=== PATIENT | female | born 1995 | race Caucasian/White ===

== ENCOUNTER 2022-05-16 01:22 | Emergency (ER) | payer OTHER ==
[2022-05-16 01:35] VITALS: TEMP 98.8
[2022-05-16] MEDS ORDERED: ALBUTEROL HFA INHALER INHALATION STA (01:47)
[2022-05-16] MEDS ORDERED: methylPREDNISolone SOD SUCCI 125 MG/2 ML VIAL IM ONE (01:47)
--- NOTE | 2022-05-16 02:19 | XR ---
EXAMINATION TYPE: XR chest 2V DATE OF EXAM: 05/16/2022 COMPARISON: NONE HISTORY: Hemoptysis TECHNIQUE: 2 views FINDINGS: Heart is normal. Lungs are clear of consolidation. There are no hilar masses. There are pat st leads. No pleural effusion. IMPRESSION: No active cardiopulmonary disease. Normal heart.
[2022-05-16] MEDS ORDERED: IPRATROPIUM-ALBUTEROL 3 ML NEB INHALATION STA ×2 (02:49)
--- NOTE | 2022-05-16 02:59 | ED ---
General Adult HPI - General Chief complaint: Shortness of Breath Stated complaint: NAILA, Coughing up blood Time Seen by Provider: 05/16/22 01:36 Source: patient, RN notes reviewed, old records reviewed Mode of arrival: wheelchair - History of Present Illness Initial comments: Patient is a 26-year-old female with past medical history remarkable for obesity, asthma, pre-COPD who is no longer smoking tobacco presents emergency Department complaining of shortness of breath. Has been ongoing for a few days. Also having congestion. Has attempted breathing treatments at home with minimal improvement. States she has been coughing a lot, and started noticing blood tinged sputum today. She states it is worse when she has multiple episodes of coughing. Has had excessive, persistent coughing over the last few days from what she believes is her COPD/asthma. Patient's daughter also has nasal congestion.. Denies any fevers or chills. Denies any abdominal pain, nausea, vomiting. Does endorse some intermittent chest tightness. His no other acute complaints at this time. States she is supposed to be on both albuterol as well as Flovent at home but she is without these that she recently moved hearing loss or inhalers. Is looking for refills on these. Presents for further evaluation at this time. - Related Data Previous Rx's Medication Instructions Recorded Albuterol Inhaler [Ventolin Hfa 2 puff INHALATION QID PRN #8 gm 05/16/22 Inhaler] Azithromycin [Zithromax] 250 mg PO DAILY 4 Days #4 tab 05/16/22 Fluticasone Propionate 110 Mcg 1 puff INHALATION RT-BID #12 gm 05/16/22 [Flovent 110 Mcg Inhaler] predniSONE [Deltasone] 40 mg PO DAILY 5 Days #10 tab 05/16/22 Allergies Allergy/AdvReac Type Severity Reaction Status Date / Time No Known Allergies Allergy Verified 05/16/22 01:34 Review of Systems ROS Statement: Those systems with pertinent positive or pertinent negative responses have been documented in the HPI. Review of Systems: CONST: Denies fever EYES: Denies blurry vision ENT: Denies nasal congestion C/V: Denies Chest pain RESP: Endorses Shortness of breath GI: Denies abdominal pain : Denies dysuria SKIN: Denies rash. MSK: Denies joint pain. NEURO: Denies headache ROS Other: All systems not noted in ROS Statement are negative. Past Medical History Past Medical History: Asthma Additional Past Medical History / Comment(s): seizure, pre-COPD History of Any Multi-Drug Resistant Organisms: None Reported Past Surgical History: No Surgical Hx Reported Past Psychological History: No Psychological Hx Reported Smoking Status: Never smoker Past Alcohol Use History: None Reported Past Drug Use History: None Reported General Exam - General Exam Comments Initial Comments: General: He is in mild respiratory distress with increased work of breathing. HEAD: Normal with no signs of head trauma. EYES: EOMI ENT: Hearing grossly intact, normal oropharynx. RESPIRATORY: Significant bilateral end expiratory wheezing. Mild hypoxia on room air to 91-94%. Increased work of breathing. C/V: Regular rate and rhythm. S1 and S2 auscultated, peripheral pulses 2+ and intact throughout ABD: Abd is soft, nontender, nondistended EXT: no obvious deformity SKIN: No rashes or lesions observed on exposed skin. NEURO: Alert and oriented 4 Course Vital Signs 05/16/22 05/16/22 05/16/22 01:32 01:47 02:54 Temperature 98.8 F Pulse Rate 102 H 93 Respiratory 23 Rate Blood Pressure 137/87 O2 Sat by Pulse 88 L 93 L Oximetry 05/16/22 05/16/22 03:07 03:12 Temperature Pulse Rate 110 H 107 H Respiratory 20 Rate Blood Pressure O2 Sat by Pulse 94 L Oximetry Medical Decision Making - Medical Decision Making Was pt. sent in by a medical professional or institution (JUAN ANTONIO Kamara, SPRINKLER WORKER, urgent care, hospital, or fdc...) When possible be specific @ -No Did you speak to anyone other than the patient for history (EMS, parent, family, police, friend...)? What history was obtained from this source @ -No Did you review nursing and triage notes (agree or disagree)? Why? @ -I reviewed and agree with nursing and triage notes Were old charts reviewed (outside hosp., previous admission, EMS record, old EKG, old radiological studies, urgent care reports/EKG's, fdc records)? Report findings @ -No old charts were reviewed Differential Diagnosis (chest pain, altered mental status, abdominal pain women, abdominal pain men, vaginal bleeding, weakness, fever, dyspnea, syncope, headache, dizziness, GI bleed, back pain, seizure, CVA, palpatations, mental health, musculoskeletal)? @ -Asthma exacerbation, COPD exacerbation, pneumonia, Covid infection, viral infection, bronchitis EKG interpreted by me (3pts min.). @ -As above X-rays interpreted by me (1pt min.). @ -Chest x-ray revealed no obvious acute cardiopulmonary process. CT interpreted by me (1pt min.). @ -None done U/S interpreted by me (1pt. min.). @ -None done What testing was considered but not performed or refused? (CT, X-rays, U/S, labs)? Why? @ -None What meds were considered but not given or refused? Why? @ -None Did you discuss the management of the patient with other professionals (professionals i.e. , PA, SPRINKLER WORKER, lab, RT, psych nurse, social service assistant, composition tile layer, teacher, tax compliance officer, counseling case manager)? Give summary @ -No Was smoking cessation discussed for >3mins.? @ -No Was critical care preformed (if so, how long)? @ -No Were there social determinants of health that impacted care today? How? (Homelessness, low income, unemployed, alcoholism, drug addiction, transportation, low edu. Level, literacy, decrease access to med. care, fci, rehab)? @ -No Was there de-escalation of care discussed even if they declined (Discuss DNR or withdrawal of care, Hospice)? DNR status @ -No What co-morbidities impacted this encounter? (DM, HTN, Smoking, COPD, CAD, Cancer, CVA, ARF, Chemo, Hep., AIDS, mental health diagnosis, sleep apnea, morbid obesity)? @ -COPD, asthma Was patient admitted / discharged? Hospital course, mention meds given and route, prescriptions, significant lab abnormalities, going to OR and other pertinent info. @ -Based on the patient's presentation physical exam, I'm concerned for COPD or asthma exacerbation. We will obtain bowel sounds, chest x-ray, screening EKG. She'll be initially symptom medically treated with an albuterol inhaler as well as a shot of IM Solu-Medrol. Patient is mildly hypoxic on room air. Remainder of vital signs are within acceptable limits. She was in agreement this plan. We discussed her blood tinged sputum likely from excessive coughing/bronchitis from her COPD/asthma. Chest x-ray shows no signs of acute cardio pulmonary process. EKG within acceptable limits. Patient's viral swabs are all negative. Patient will be given 2 DuoNeb treatments at this time and reevaluated. I did the patient at this time of her results and she was in agreement this plan. On reevaluation, patient is feeling improved. Vital signs are within acceptable limits. Hypoxia is resolved. Wheezing is much improved. I do believe it is safer to be discharged home with close follow-up. She was in agreement this plan. Does have a scheduled appointment with a new PCP next month but recommended she follow up sooner. She was in agreement this plan. She'll be given prescription for prednisone, albuterol inhaler, as well as her Flovent inhaler. Strict return precautions discussed. She'll be started on azithromycin to cover empirically for bronchitis. She was in agreement this plan. I will provide the patient with a prescription for prednisone, azithromycin, Flovent, albuterol. I instructed the patient to follow up with their PCP in the next 1-3 days. I explained that the patient should return to the emergency department if they experience any worsening symptoms. Strict return precautions were discussed with the patient. The patient expressed understanding of these instructions. I answered all questions that the patient had. The patient was discharged home in good condition with their prescriptions and follow up information. Undiagnosed new problem with uncertain prognosis? @ -No Drug Therapy requiring intensive monitoring for toxicity (Heparin, Nitro, Insulin, Cardizem)? @ -No Were any procedures done? @ -No Diagnosis/symptom? @ -Asthma/COPD Acute, or Chronic, or Acute on Chronic? @ -Acute on chronic Uncomplicated (without systemic symptoms) or Complicated (systemic symptoms)? @ -Complicated Side effects of treatment? @ -No Exacerbation, Progression, or Severe Exacerbation? @ -Exacerbation Poses a threat to life or bodily function? How? (Chest pain, [place], [place], pneumonia, PE, COPD, DKA, ARF, appy, cholecystitis, CVA, Diverticulitis, Homicidal, Suicidal, threat to staff... and all critical care pts) @ -Yes, if untreated can result in significant morbidity and mortality. Diagnosis/symptom? @ -Bronchitis Acute, or Chronic, or Acute on Chronic? @ -Acute Uncomplicated (without systemic symptoms) or Complicated (systemic symptoms)? @ -Uncomplicated Side effects of treatment? @ -none Exacerbation, Progression, or Severe Exacerbation] @ -no Poses a threat to life or bodily function? @ -no - Lab Data Lab Results 05/16/22 Range/Units 01:59 Influenza Type A (PCR) Not Detected (Not Detectd) Influenza Type B (PCR) Not Detected (Not Detectd) RSV (PCR) Not Detected (Not Detectd) SARS-CoV-2 (PCR) Not Detected (Not Detectd) - EKG Data -: EKG Interpreted by Me EKG Comments: 12-lead Electrocardiogram Interpretation Note EKG was reviewed and interpreted by myself. 12-lead ECG performed at 0230 is interpreted by me as revealing normal sinus rhythm at a rate of 98 beats per minute. [place]man is normal. [place] interval is 141 ms, QRS duration is 79 ms, QTc is 405 ms.. There were no ST or T wave abnormalities to suggest myocardial ischemia or injury. R wave progression across the precordium was satisfactory. By my interpretation this EKG is non-diagnostic for acute ischemia. Disposition Clinical Impression: Asthma, COPD (chronic obstructive pulmonary disease), Bronchitis Disposition: HOME SELF-CARE Condition: Good Instructions (If sedation given, give patient instructions): Asthma (ED), Acute Bronchitis (ED) Prescriptions: predniSONE [Deltasone] 40 mg PO DAILY 5 Days #10 tab Fluticasone Propionate 110 Mcg [Flovent 110 Mcg Inhaler] 1 puff INHALATION RT- BID #12 gm Albuterol Inhaler [Ventolin Hfa Inhaler] 2 puff INHALATION QID PRN #8 gm PRN Reason: Wheezing Azithromycin [Zithromax] 250 mg PO DAILY 4 Days #4 tab Is patient prescribed a controlled substance at d/c from ED?: No Referrals: None,Stated [Primary Care Provider] - 1-2 days Time of Disposition: 03:10
[2022-05-16 03:12] VITALS: PULSE 107; RESP 20
[2022-05-16] MEDS ORDERED: AZITHROMYCIN 500 MG TAB PO STA (03:12)
[2022-05-16 03:36] VITALS: BP 122/74
== END 2022-05-16 03:39 | disposition home or self-care (01) ==
LOC: EC 01:22
DX: J44.9 Chronic obstructive pulmonary disease, unspecified (principal); J40 Bronchitis, not specified as acute or chronic; E66.9 Obesity, unspecified; Z20.822 Contact with and (suspected) exposure to COVID-19; Z68.43 Body mass index [BMI] 50.0-59.9, adult
CPT/HCPCS: 94640; 93005; 87636; 71046; 99285; 96372; J2930

== ENCOUNTER 2022-06-09 16:27 | Emergency (ER) | payer OTHER ==
[2022-06-09] MEDS ORDERED: methylPREDNISolone SOD SUCCI 125 MG/2 ML VIAL IV STA (16:41)
[2022-06-09] MEDS ORDERED: IPRATROPIUM-ALBUTEROL 3 ML NEB INHALATION STA (16:41)
[2022-06-09 17:27] LABS: Basophils % (A) 0 %; Eosinophils # (A) 0.6 k/uL (0-0.7); Eosinophils % (A) 7 %; HCT 37.9 % (34.0-46.0); HGB 12.5 gm/dL (11.4-16.0); Lymphocytes # (A) 2.2 k/uL (1.0-4.8); Lymphocytes % (A) 25 %; MCH 24.4 pg (25.0-35.0); MCHC 32.8 g/dL (31.0-37.0); MCV 74.2 fL (80.0-100.0); Mean Platelet Volume 7.1; Microcytosis Slight; Monocytes # (A) 0.3 k/uL (0-1.0); Monocytes % (A) 4 %; Neutrophils # (A) 5.3 k/uL (1.3-7.7); Neutrophils % (A) 62 %; Platelet Count 312 k/uL (150-450); RBC 5.11 m/uL (3.80-5.40); RDW 15.6 % (11.5-15.5); WBC 8.6 k/uL (3.8-10.6)
--- NOTE | 2022-06-09 17:27 | ED ---
SOB HPI - General Chief Complaint: Shortness of Breath Stated Complaint: sob Time Seen by Provider: 06/09/22 16:31 Source: patient, EMS, RN notes reviewed Mode of arrival: EMS - History of Present Illness Initial Comments: 26-year-old female history of asthma who states she's been short of breath for last couple days she's had chills and cold sweats today. That she short of br eath with exertion she states she used her rescue inhaler over last 3 days without relief she states she has a home nebulizer machine with the patient dog chewed the mouthpiece a reservoir and she did not have a replacement. No overt chest pain no other current complaints modifying factors patient does not smoke. MD Complaint: shortness of breath, cough - Related Data Home Medications Medication Instructions Recorded Confirmed ARIPiprazole [Abilify] 5 mg PO DAILY 06/09/22 06/09/22 Albuterol Inhaler [Ventolin Hfa 2 puff INHALATION RT-QID PRN 06/09/22 06/09/22 Inhaler] Albuterol Nebulized [Ventolin 2.5 mg INHALATION RT-QID PRN 06/09/22 06/09/22 Nebulized] Sertraline [Zoloft] 100 mg PO DAILY 06/09/22 06/09/22 Previous Rx's Medication Instructions Recorded Fluticasone Propionate 110 Mcg 1 puff INHALATION RT-BID #12 gm 05/16/22 [Flovent 110 Mcg Inhaler] Albuterol Inhaler [Ventolin Hfa 2 puff INHALATION Q6HR PRN #1 each 06/09/22 Inhaler] Fluticasone Propionate 220 Mcg 2 puff INHALATION RT-BID #12 gm 06/09/22 [Flovent 220 Mcg Inhaler] predniSONE [Deltasone] 20 mg PO BID #10 tab 06/09/22 Allergies Allergy/AdvReac Type Severity Reaction Status Date / Time No Known Allergies Allergy Verified 06/09/22 17:55 Review of Systems ROS Statement: Those systems with pertinent positive or pertinent negative responses have been documented in the HPI. ROS Other: All systems not noted in ROS Statement are negative. Past Medical History Past Medical History: Asthma, Seizure Disorder Additional Past Medical History / Comment(s): seizure, pre-COPD History of Any Multi-Drug Resistant Organisms: None Reported Past Surgical History: No Surgical Hx Reported Past Psychological History: No Psychological Hx Reported Smoking Status: Never smoker Past Alcohol Use History: None Reported Past Drug Use History: None Reported General Exam - General Exam Comments Initial Comments: This is a well-developed well-nourished awake alert oriented 4 female General appearance: alert, anxious, in distress Head exam: Present: atraumatic, normocephalic, normal inspection Eye exam: Present: normal appearance, PERRL, EOMI. Absent: scleral icterus, conjunctival injection, periorbital swelling ENT exam: Present: normal exam, mucous membranes moist Neck exam: Present: normal inspection, full ROM, other. Absent: tenderness, meningismus, lymphadenopathy Respiratory exam: Present: wheezes, accessory muscle use, decreased breath sounds (No stridor JVD or bruits). Absent: respiratory distress, rales, rhonchi, stridor, chest wall tenderness Cardiovascular Exam: Present: regular rate, normal rhythm, normal heart sounds. Absent: systolic murmur, diastolic murmur, rubs, gallop, clicks GI/Abdominal exam: Present: soft, normal bowel sounds. Absent: distended, tenderness, guarding, rebound, rigid Extremities exam: Present: normal inspection, full ROM, normal capillary refill. Absent: tenderness, pedal edema, joint swelling, calf tenderness Back exam: Present: normal inspection Neurological exam: Present: alert, oriented X3, CN II-XII intact Psychiatric exam: Present: normal affect, normal mood Skin exam: Present: warm, dry, intact, normal color. Absent: rash Course Vital Signs 06/09/22 06/09/22 06/09/22 16:40 17:59 18:12 Temperature 97.7 F 98.1 F Pulse Rate 96 109 H 70 Respiratory 20 17 Rate Blood Pressure 136/87 149/110 O2 Sat by Pulse 91 L 97 Oximetry 06/09/22 18:19 Temperature Pulse Rate 73 Respiratory Rate Blood Pressure O2 Sat by Pulse Oximetry Medical Decision Making - Medical Decision Making Reevaluation patient finds that she feels much improved increased aeration pulse oximetry in the high 90s occasional x-ray wheezing clears with deep breathing. Patient will be discharged on oral steroids no inhalers.Was pt. sent in by a medical professional or institution (, PA, EQUITIES TRADER, urgent care, hospital, or senior living...) When possible be specific @ -No Did you speak to anyone other than the patient for history (EMS, parent, family, police, friend...)? What history was obtained from this source @ -No Did you review nursing and triage notes (agree or disagree)? Why? @ -I reviewed and agree with nursing and triage notes Were old charts reviewed (outside hosp., previous admission, EMS record, old EKG, old radiological studies, urgent care reports/EKG's, senior living records)? Report findings @ -No old charts were reviewed Differential Diagnosis (chest pain, altered mental status, abdominal pain women, abdominal pain men, vaginal bleeding, weakness, fever, dyspnea, syncope, headache, dizziness, GI bleed, back pain, seizure, CVA, palpatations, mental health, musculoskeletal)? @ -Asthma exacerbation EKG interpreted by me (3pts min.). @ - X-rays interpreted by me (1pt min.). @ -None done CT interpreted by me (1pt min.). @ -None done U/S interpreted by me (1pt. min.). @ -None done What testing was considered but not performed or refused? (CT, X-rays, U/S, labs)? Why? @ -None What meds were considered but not given or refused? Why? @ -None Did you discuss the management of the patient with other professionals (professionals i.e. , PA, EQUITIES TRADER, lab, RT, psych nurse, social media assistant, laborer hoisting, teacher, probation and parole officer, case making machine operator)? Give summary @ -No Was smoking cessation discussed for >3mins.? @ -No Was critical care preformed (if so, how long)? @ -No Were there social determinants of health that impacted care today? How? (Homelessness, low income, unemployed, alcoholism, drug addiction, transportation, low edu. Level, literacy, decrease access to med. care, fpc, rehab)? @ -No Was there de-escalation of care discussed even if they declined (Discuss DNR or withdrawal of care, Hospice)? DNR status @ -No What co-morbidities impacted this encounter? (DM, HTN, Smoking, COPD, CAD, Cancer, CVA, ARF, Chemo, Hep., AIDS, mental health diagnosis, sleep apnea, morbid obesity)? @ -Asthma] Was patient admitted / discharged? Hospital course, mention meds given and route, prescriptions, significant lab abnormalities, going to OR and other pertinent info. @ -hospital course patient was discharged on oral steroids and a new inhaler Undiagnosed new problem with uncertain prognosis? @ -No Drug Therapy requiring intensive monitoring for toxicity (Heparin, Nitro, Insulin, Cardizem)? @ -No Were any procedures done? @ -No Diagnosis/symptom? @ -Acute asthma exacerbation Acute, or Chronic, or Acute on Chronic? @ -Acute Uncomplicated (without systemic symptoms) or Complicated (systemic symptoms)? @ -default Side effects of treatment? @ -No Exacerbation, Progression, or Severe Exacerbation? @ -Asthma exacerbation Poses a threat to life or bodily function? How? (Chest pain, [place], [place], pneumonia, PE, COPD, DKA, ARF, appy, cholecystitis, CVA, Diverticulitis, Homicidal, S uicidal, threat to staff... and all critical care pts) @ -No - Lab Data Result diagrams: 06/09/22 17:08 06/09/22 17:08 Lab Results 06/09/22 06/09/22 Range/Units 17:08 17:08 WBC 8.6 (3.8-10.6) k/uL RBC 5.11 (3.80-5.40) m/uL Hgb 12.5 (11.4-16.0) gm/dL Hct 37.9 (34.0-46.0) % MCV 74.2 L (80.0-100.0) fL MCH 24.4 L (25.0-35.0) pg MCHC 32.8 (31.0-37.0) g/dL RDW 15.6 H (11.5-15.5) % Plt Count 312 (150-450) k/uL MPV 7.1 Neutrophils % 62 % Lymphocytes % 25 % Monocytes % 4 % Eosinophils % 7 % Basophils % 0 % Neutrophils # 5.3 (1.3-7.7) k/uL Lymphocytes # 2.2 (1.0-4.8) k/uL Monocytes # 0.3 (0-1.0) k/uL Eosinophils # 0.6 (0-0.7) k/uL Basophils # 0.0 (0-0.2) k/uL Microcytosis Slight Sodium 138 (137-145) mmol/L Potassium 5.1 (3.5-5.1) mmol/L Chloride 104 (98-107) mmol/L Carbon Dioxide 28 (22-30) mmol/L Anion Gap 6 mmol/L BUN 14 (7-17) mg/dL Creatinine 0.62 (0.52-1.04) mg/dL Est GFR (CKD-EPI)AfAm >90 (>60 ml/min/1.73 sqM) Est GFR (CKD-EPI)NonAf >90 (>60 ml/min/1.73 sqM) Glucose 88 (74-99) mg/dL Calcium 9.2 (8.4-10.2) mg/dL Magnesium 1.6 (1.6-2.3) mg/dL Total Bilirubin 0.8 (0.2-1.3) mg/dL AST 72 H (14-36) U/L ALT 78 H (4-34) U/L Alkaline Phosphatase 59 (38-126) U/L Total Protein 8.3 H (6.3-8.2) g/dL Albumin 4.5 (3.5-5.0) g/dL - Radiology Data Interpreted by me: I did evaluate the imaging did read it no evidence of acute processes my interpretation. Disposition Clinical Impression: Acute asthma exacerbation, Dyspnea Disposition: HOME SELF-CARE Condition: Good Instructions (If sedation given, give patient instructions): Asthma (ED) Prescriptions: predniSONE [Deltasone] 20 mg PO BID #10 tab Fluticasone Propionate 220 Mcg [Flovent 220 Mcg Inhaler] 2 puff INHALATION RT- BID #12 gm Albuterol Inhaler [Ventolin Hfa Inhaler] 2 puff INHALATION Q6HR PRN #1 each PRN Reason: Dyspnea Is patient prescribed a controlled substance at d/c from ED?: No Referrals: None,Stated [Primary Care Provider] - 1-2 days Decision Date: 06/09/22 Decision Time: 18:58
[2022-06-09 17:51] LABS: ALT 78 U/L (4-34); African American GFR (CKD) >90 (>60 ml/min/1.73 sqM); Anion Gap 6 mmol/L; Blood Urea Nitrogen 14 mg/dL (7-17); Calcium 9.2 mg/dL (8.4-10.2); Carbon Dioxide 28 mmol/L (22-30); Chloride 104 mmol/L (98-107); Glucose 88 mg/dL (74-99); Non-African American GFR(CKD) >90 (>60 ml/min/1.73 sqM); Sodium 138 mmol/L (137-145)
[2022-06-09 18:02] LABS: AST 72 U/L (14-36); Albumin 4.5 g/dL (3.5-5.0); Alkaline Phosphatase 59 U/L (38-126); Magnesium 1.6 mg/dL (1.6-2.3); Potassium 5.1 mmol/L (3.5-5.1); Total Bilirubin 0.8 mg/dL (0.2-1.3); Total Protein 8.3 g/dL (6.3-8.2)
--- NOTE | 2022-06-09 18:08 | XR ---
EXAMINATION TYPE: XR chest 2V DATE OF EXAM: 06/09/2022 5:53 PM COMPARISON: Chest radiographs from 05/16/2022 TECHNIQUE: XR chest 2V Frontal and lateral views of the chest. CLINICAL INDICATION:Female, 26 years old with history of Dyspnea; FINDINGS: Lungs/Pleura: There is no evidence of pleural effusion, focal consolidation, or pneumothorax. Pulmonary vascularity: Unremarkable. Heart/mediastinum: Cardiomediastinal silhouette is unremarkable. Musculoskeletal: No acute osseous pathology. IMPRESSION: No acute cardiopulmonary disease/process.
[2022-06-09 19:12] VITALS: BP 149/89; PULSE 107; RESP 18; TEMP 98
== END 2022-06-09 19:25 | disposition home or self-care (01) ==
LOC: EC 16:27
DX: J45.901 Unspecified asthma with (acute) exacerbation (principal); Z79.899 Other long term (current) drug therapy; Z79.51 Long term (current) use of inhaled steroids
CPT/HCPCS: 36415; 94640; 80053; 83735; 85025; 71046; 99285; 96374; J2930

== ENCOUNTER 2022-06-22 10:30 | Emergency (ER) | payer OTHER ==
[2022-06-22] MEDS ORDERED: ALBUTEROL NEBULIZED 2.5 MG/3 ML INHALATION STA (11:48)
[2022-06-22] MEDS ORDERED: IPRATROPIUM-ALBUTEROL 3 ML NEB INHALATION STA (11:48)
[2022-06-22] MEDS ORDERED: methylPREDNISolone SOD SUCCI 125 MG/2 ML VIAL IM ONE (11:49)
--- NOTE | 2022-06-22 12:27 | XR ---
EXAMINATION TYPE: XR chest 1V portable DATE OF EXAM: 06/22/2022 Comparison: 06/09/2022 Clinical History: 27-year-old female cough Findings: The cardiomediastinal silhouette, aorta, and pulmonary vasculature are within normal limits. Diffus e hazy densities felt to reflect portable technique and large patient body habitus. Otherwise, lungs and pleural spaces are clear. Impression: Limited by large body habitus and portable technique. No definite acute process.
--- NOTE | 2022-06-22 12:58 | ED ---
General Adult HPI - General Chief complaint: Shortness of Breath Stated complaint: SOB Time Seen by Provider: 06/22/22 11:40 Source: patient, RN notes reviewed, old records reviewed Mode of arrival: ambulatory Limitations: no limitations - History of Present Illness Initial comments: Patient is a 27-year-old female with evaluated before with history of seizure disorder, asthma presents emergency Department complaining of severe asthma. Ran out of her breathing treatments last night. Increase shortness of breath and asthma wheezing since the sun weather changes. Endorses mild increasing coughing as well. Denies any fevers. Endorses rhinorrhea. Denies abdominal pain, nausea, vomiting. Presents requesting a refill on her breathing treatments. Is changing PCP is at this time. No other acute complaints at this time.Patient's [id number] daughter has URI symptoms. - Related Data Home Medications Medication Instructions Recorded Confirmed ARIPiprazole [Abilify] 5 mg PO DAILY 06/09/22 06/22/22 Sertraline [Zoloft] 100 mg PO DAILY 06/09/22 06/22/22 Previous Rx's Medication Instructions Recorded Fluticasone Propionate 220 Mcg 2 puff INHALATION RT-BID #12 gm 06/09/22 [Flovent 220 Mcg Inhaler] Albuterol Inhaler [Ventolin Hfa 2 puff INHALATION Q6H PRN #1 unit 06/22/22 Inhaler] Albuterol Nebulized [Ventolin 2.5 mg INHALATION Q4H 8 Days #150 06/22/22 Nebulized] ml Azithromycin [Zithromax] 250 mg PO DAILY 4 Days #4 tab 06/22/22 Fluticasone Propionate 110 Mcg 1 puff INHALATION RT-BID #12 gm 06/22/22 [Flovent 110 Mcg Inhaler] predniSONE [Deltasone] 20 mg PO BID 5 Days #10 tab 06/22/22 Allergies Allergy/AdvReac Type Severity Reaction Status Date / Time No Known Allergies Allergy Verified 06/22/22 13:55 Review of Systems ROS Statement: Those systems with pertinent positive or pertinent negative responses have been documented in the HPI. Review of Systems: CONST: Denies fever EYES: Denies blurry vision ENT: Endorses nasal congestion C/V: Denies Chest pain RESP: Endorses wheezing GI: Denies abdominal pain : Denies dysuria SKIN: Denies rash. MSK: Denies joint pain. NEURO: Denies headache ROS Other: All systems not noted in ROS Statement are negative. Past Medical History Past Medical History: Asthma, Seizure Disorder Additional Past Medical History / Comment(s): seizure, pre-COPD History of Any Multi-Drug Resistant Organisms: None Reported Past Surgical History: No Surgical Hx Reported Past Psychological History: No Psychological Hx Reported Smoking Status: Never smoker Past Alcohol Use History: None Reported Past Drug Use History: None Reported General Exam - General Exam Comments Initial Comments: General: Appears in mild respiratory distress. HEAD: Normal with no signs of head trauma. EYES: PERRLA, EOMI, conjunctiva normal, no discharge. ENT: Hearing grossly intact, normal oropharynx. RESPIRATORY: Bilateral end expiratory wheezing. No hypoxia on room air. Mildly increased work of breathing. C/V: Tachycardic with a regular rhythm. S1 and S2 auscultated. ABD: Abd is soft, nontender, nondistended EXT: Normal range of motion, no obvious deformity SKIN: No rashes or lesions observed on exposed skin. NEURO: Alert and oriented 4. Limitations: no limitations Course Vital Signs 06/22/22 06/22/22 06/22/22 10:53 13:12 13:21 Temperature 98.8 F Pulse Rate 122 H 112 H 108 H Respiratory 22 Rate Blood Pressure 144/89 O2 Sat by Pulse 96 Oximetry 06/22/22 14:00 Temperature 98 F Pulse Rate 100 Respiratory 18 Rate Blood Pressure 144/85 O2 Sat by Pulse 94 L Oximetry Medical Decision Making - Medical Decision Making Was pt. sent in by a medical professional or institution (, PA, ROCKET ENGINE TESTER, urgent care, hospital, or retirement...) When possible be specific @ -No Did you speak to anyone other than the patient for history (EMS, parent, family, police, friend...)? What history was obtained from this source @ -No Did you review nursing and triage notes (agree or disagree)? Why? @ -I reviewed and agree with nursing and triage notes Were old charts reviewed (outside hosp., previous admission, EMS record, old EKG, old radiological studies, urgent care reports/EKG's, retirement records)? Report findings @ -No old charts were reviewed Differential Diagnosis (chest pain, altered mental status, abdominal pain women, abdominal pain men, vaginal bleeding, weakness, fever, dyspnea, syncope, headache, dizziness, GI bleed, back pain, seizure, CVA, palpatations, mental health, musculoskeletal)? @ -Differential Dyspnea: Coronary syndrome, arrhythmia, tamponade, asthma, COPD, pulmonary embolism, pneumonia, pneumothorax, pulmonary effusion, anaphylaxis, diabetic ketoacidosis, flailed chest, pulmonary contusion, diaphragmatic rupture, anemia, neuromuscular, this is not meant to be an all-inclusive list. EKG interpreted by me (3pts min.). @ -None done X-rays interpreted by me (1pt min.). @ -Chest x-ray reveals no obvious acute cardio pulmonary process. CT interpreted by me (1pt min.). @ -None done U/S interpreted by me (1pt. min.). @ -None done What testing was considered but not performed or refused? (CT, X-rays, U/S, labs)? Why? @ -None What meds were considered but not given or refused? Why? @ -None Did you discuss the management of the patient with other professionals (professionals i.e. , PA, ROCKET ENGINE TESTER, lab, RT, psych nurse, social sciences lecturer, rn admit, teacher, grant officer, caseworker intake)? Give summary @ -No Was smoking cessation discussed for >3mins.? @ -No Was critical care preformed (if so, how long)? @ -No Were there social determinants of health that impacted care today? How? (Homelessness, low income, unemployed, alcoholism, drug addiction, transportation, low edu. Level, literacy, decrease access to med. care, custodial, rehab)? @ -No Was there de-escalation of care discussed even if they declined (Discuss DNR or withdrawal of care, Hospice)? DNR status @ -No What co-morbidities impacted this encounter? (DM, HTN, Smoking, COPD, CAD, Cancer, CVA, ARF, Chemo, Hep., AIDS, mental health diagnosis, sleep apnea, morbid obesity)? @ -Asthma Was patient admitted / discharged? Hospital course, mention meds given and route, prescriptions, significant lab abnormalities, going to OR and other pertinent info. @ -Based on the patient's presentation and physical exam, I'm concerned for an asthma exacerbation as well as possible upper respiratory infection. We will obtain vital signs, chest x-ray to the patient with IM steroids as well as multiple breathing treatments. She was in agreement this plan. Vital signs are remarkable for tachycardia, otherwise within acceptable limits. Vital signs are negative. Chest x-ray unremarkable. Following breathing treatments patient's wheezing is improved. Patient's vital signs are also improved at this time. Oxygen saturation saturations maintaining between 9498% on room air. I discussed her workup and I would like to discharge her with steroids, antibiotics for bronchitis, as well as refills of her inhalers and breathing treatments. She was in agreement this plan. Strict return precautions discussed. I will provide the patient with a prescription for albuterol nebulizer solution, prednisone, azithromycin, albuterol inhaler, Flovent inhaler. I instructed the patient to follow up with their PCP in the next 1-3 days. I explained that the patient should return to the emergency department if they experience any worsening symptoms. Strict return precautions were discussed with the patient. The patient expressed understanding of these instructions. I answered all questions that the patient had. The patient was discharged home in good condition with their prescriptions and follow up information. Undiagnosed new problem with uncertain prognosis? @ -No Drug Therapy requiring intensive monitoring for toxicity (Heparin, Nitro, Insulin, Cardizem)? @ -No Were any procedures done? @ -No Diagnosis/symptom? @ -Asthma, bronchitis Acute, or Chronic, or Acute on Chronic? @ -Acute on chronic Uncomplicated (without systemic symptoms) or Complicated (systemic symptoms)? @ -Complicated Side effects of treatment? @ -none Exacerbation, Progression, or Severe Exacerbation] @ -Exacerbation Poses a threat to life or bodily function? @ -no - Lab Data Lab Results 06/22/22 Range/Units 11:52 Influenza Type A (PCR) Not Detected (Not Detectd) Influenza Type B (PCR) Not Detected (Not Detectd) RSV (PCR) Not Detected (Not Detectd) SARS-CoV-2 (PCR) Not Detected (Not Detectd) Disposition Clinical Impression: Asthma, Bronchitis Disposition: HOME SELF-CARE Condition: Good Instructions (If sedation given, give patient instructions): Asthma (ED), Acute Bronchitis (ED) Prescriptions: predniSONE [Deltasone] 20 mg PO BID 5 Days #10 tab Fluticasone Propionate 110 Mcg [Flovent 110 Mcg Inhaler] 1 puff INHALATION RT- BID #12 gm Albuterol Inhaler [Ventolin Hfa Inhaler] 2 puff INHALATION Q6H PRN #1 unit PRN Reason: Dyspnea Albuterol Nebulized [Ventolin Nebulized] 2.5 mg INHALATION Q4H 8 Days #150 ml Azithromycin [Zithromax] 250 mg PO DAILY 4 Days #4 tab Is patient prescribed a controlled substance at d/c from ED?: No Referrals: None,Stated [Primary Care Provider] - 1-2 days Time of Disposition: 13:28
[2022-06-22] MEDS ORDERED: AZITHROMYCIN 500 MG TAB PO STA (13:44)
[2022-06-22 14:02] VITALS: BP 144/85; PULSE 100; RESP 18; TEMP 98
== END 2022-06-22 14:02 | disposition home or self-care (01) ==
LOC: EC 10:30
DX: J45.909 Unspecified asthma, uncomplicated (principal); Z20.822 Contact with and (suspected) exposure to COVID-19
CPT/HCPCS: 94640; 87636; 71045; 99285; 96372; J2930

== ENCOUNTER 2022-07-22 00:50 | Emergency (ER) | payer OTHER ==
[2022-07-22 01:03] VITALS: BP 133/94; PULSE 102; RESP 20; TEMP 98.1
--- NOTE | 2022-07-22 01:20 | ED ---
Female Urogenital HPI - General Chief complaint: Vaginal Bleeding Stated complaint: Passing large blood clots, ABD pain Time Seen by Provider: 07/22/22 01:11 Source: patient, RN notes reviewed, old records reviewed Mode of arrival: ambulatory Limitations: no limitations - History of Present Illness Initial comments: 27-year-old morbidly obese female presents to the emergency room with complaints of vaginal bleeding since May 31 when she had an IUD placed. She has had increased blood clots today. She has been in contact with her INFANT CAREGIVER Dr. Roscoe arnold who wanted her to have an ultrasound which she was unable to schedule. She denies any other abnormal bleeding. No abdominal pain. States that she is not currently sexually active. Does have a history of seizure and asthma. MD Complaint: vaginal bleeding -: month(s) (1) Patient : No Associated Symptoms: denies other symptoms - Related Data Sexually active: No Home Medications Medication Instructions Recorded Confirmed ARIPiprazole [Abilify] 5 mg PO DAILY 06/09/22 06/22/22 Sertraline [Zoloft] 100 mg PO DAILY 06/09/22 06/22/22 Previous Rx's Medication Instructions Recorded Fluticasone Propionate 220 Mcg 2 puff INHALATION RT-BID #12 gm 06/09/22 [Flovent 220 Mcg Inhaler] Azithromycin [Zithromax] 250 mg PO DAILY 4 Days #4 tab 06/22/22 Fluticasone Propionate 110 Mcg 1 puff INHALATION RT-BID #12 gm 06/22/22 [Flovent 110 Mcg Inhaler] predniSONE [Deltasone] 20 mg PO BID 5 Days #10 tab 06/22/22 Albuterol Inhaler [Ventolin Hfa 2 puff INHALATION Q6H PRN #1 unit 07/22/22 Inhaler] Albuterol Nebulized [Ventolin 2.5 mg INHALATION Q4H 8 Days #150 07/22/22 Nebulized] ml Allergies Allergy/AdvReac Type Severity Reaction Status Date / Time No Known Allergies Allergy Verified 07/22/22 01:03 Review of Systems ROS Statement: Those systems with pertinent positive or pertinent negative responses have been documented in the HPI. ROS Other: All systems not noted in ROS Statement are negative. Past Medical History Past Medical History: Asthma, Seizure Disorder Additional Past Medical History / Comment(s): seizure, pre-COPD History of Any Multi-Drug Resistant Organisms: None Reported Past Surgical History: No Surgical Hx Reported Past Psychological History: No Psychological Hx Reported Smoking Status: Never smoker Past Alcohol Use History: None Reported Past Drug Use History: None Reported General Exam Limitations: no limitations General appearance: alert, in no apparent distress Head exam: Present: atraumatic Eye exam: Present: normal appearance. Absent: scleral icterus, conjunctival injection, periorbital swelling ENT exam: Present: mucous membranes moist Neck exam: Present: full ROM. Absent: tenderness, meningismus Respiratory exam: Present: wheezes. Absent: respiratory distress, accessory muscle use Cardiovascular Exam: Present: tachycardia GI/Abdominal exam: Present: soft. Absent: distended, tenderness, rigid Extremities exam: Present: full ROM, normal capillary refill. Absent: tenderness, pedal edema Back exam: Absent: tenderness, CVA tenderness (R), CVA tenderness (L) Neurological exam: Present: alert, oriented X3, normal gait Psychiatric exam: Present: normal affect, normal mood Skin exam: Present: warm, dry, normal color. Absent: cyanosis, diaphoretic, petechiae, pallor Course Vital Signs 07/22/22 00:57 Temperature 98.1 F Pulse Rate 102 H Respiratory 20 Rate Blood Pressure 133/94 O2 Sat by Pulse 95 Oximetry Medical Decision Making - Medical Decision Making Was pt. sent in by a medical professional or institution (JUAN ANTONIO Kamara, STONE CLEANER, urgent care, hospital, or long term...) When possible be specific @ -No Did you speak to anyone other than the patient for history (EMS, parent, family, police, friend...)? What history was obtained from this source @ -No Did you review nursing and triage notes (agree or disagree)? Why? @ -I reviewed and agree with nursing and triage notes Were old charts reviewed (outside hosp., previous admission, EMS record, old EKG, old radiological studies, urgent care reports/EKG's, long term records)? Report findings @ -No old charts were reviewed Differential Diagnosis (chest pain, altered mental status, abdominal pain women, abdominal pain men, vaginal bleeding, weakness, fever, dyspnea, syncope, headache, dizziness, GI bleed, back pain, seizure, CVA, palpatations, mental health, musculoskeletal)? @ -Dysmenorrhea, Coagulopathy, endometriosis, fibroids, IUD, dysfunctional uterine bleeding EKG interpreted by me (3pts min.). @ -n/a X-rays interpreted by me (1pt min.). @ -None done CT interpreted by me (1pt min.). @ -None done U/S interpreted by me (1pt. min.). @ -no What testing was considered but not performed or refused? (CT, X-rays, U/S, labs)? Why? @ -None What meds were considered but not given or refused? Why? @ -None Did you discuss the management of the patient with other professionals (professionals i.e. DrStephen, PA, STONE CLEANER, lab, RT, psych nurse, social work manager, box blank machine operator, teacher, parole or probation officer, case managers)? Give summary @ -No Was smoking cessation discussed for >3mins.? @ -No Was critical care preformed (if so, how long)? @ -No Were there social determinants of health that impacted care today? How? (Homelessness, low income, unemployed, alcoholism, drug addiction, transportation, low edu. Level, literacy, decrease access to med. care, group home, rehab)? @ -No Was there de-escalation of care discussed even if they declined (Discuss DNR or withdrawal of care, Hospice)? DNR status @ -No What co-morbidities impacted this encounter? (DM, HTN, Smoking, COPD, CAD, Cancer, CVA, ARF, Chemo, Hep., AIDS, mental health diagnosis, sleep apnea, morbid obesity)? @ -Does have a history of seizure and asthma, morbid obesity Was patient admitted / discharged? Hospital course, mention meds given and route, prescriptions, significant lab abnormalities, going to OR and other pertinent info. @ -discharged 27-year-old morbidly obese female presents with complaints of vaginal bleeding since May 31 when she had an IUD placed. She has had increased blood clots today. She has been in contact with her INFANT CAREGIVER Dr. Saha who wanted her to have an ultrasound which she was unable to schedule. She denies any other abnormal bleeding. No abdominal pain. States that she is not currently sexually active. On physical exam patient with inspiratory and expiratory wheezes. No respiratory distress or accessory muscle use. She was offered a breathing treatment due to the wheezing but declined. Abdomen soft and nontender. Hemoglobin 12.7 and hematocrit 39.7. PT/INR normal limits Ultrasound report shows IUD in sitting position within the endometrial cavity. Endometrial stripe is normal measuring 8 mm, no free fluid is seen. I offered a pelvic exam to assess bleeding and she declined stating that her bleeding has improved. Initially she was going through a pad every 3 hours but has slowed. Patient stated she will follow-up with Dr. Dow for continuation of care. Patient requesting albuterol nebulizer and inhaler for asthma. Case discussed with Dr. Rodriguez. Undiagnosed new problem with uncertain prognosis? @ -No Drug Therapy requiring intensive monitoring for toxicity (Heparin, Nitro, Insulin, Cardizem)? @ -No Were any procedures done? @ -No Diagnosis/symptom? @ -Dysfunctional uterine bleeding Acute, or Chronic, or Acute on Chronic? @ -Acute Uncomplicated (without systemic symptoms) or Complicated (systemic symptoms)? @ -Uncomplicated Side effects of treatment? @ -No Exacerbation, Progression, or Severe Exacerbation? @ -No Poses a threat to life or bodily function? How? (Chest pain, [place], [place], pneumonia, PE, COPD, DKA, ARF, appy, cholecystitis, CVA, Diverticulitis, Homicidal, Suicidal, threat to staff... and all critical care pts) @ -No - Lab Data Result diagrams: 07/22/22 02:01 Lab Results 07/22/22 07/22/22 Range/Units 02:01 02:01 WBC 12.3 H (3.8-10.6) k/uL RBC 5.33 (3.80-5.40) m/uL Hgb 12.7 (11.4-16.0) gm/dL Hct 39.7 (34.0-46.0) % MCV 74.5 L (80.0-100.0) fL MCH 23.7 L (25.0-35.0) pg MCHC 31.9 (31.0-37.0) g/dL RDW 16.0 H (11.5-15.5) % Plt Count 333 (150-450) k/uL MPV 7.1 Neutrophils % 55 % Lymphocytes % 30 % Monocytes % 6 % Eosinophils % 7 % Basophils % 0 % Neutrophils # 6.8 (1.3-7.7) k/uL Lymphocytes # 3.6 (1.0-4.8) k/uL Monocytes # 0.7 (0-1.0) k/uL Eosinophils # 0.9 H (0-0.7) k/uL Basophils # 0.0 (0-0.2) k/uL Hypochromasia Slight Anisocytosis Slight Microcytosis Slight PT 10.5 (9.0-12.0) sec INR 1.0 (<1.2) APTT 25.1 (22.0-30.0) sec Disposition Clinical Impression: Dysmenorrhea, Asthma Disposition: HOME SELF-CARE Condition: Good Instructions (If sedation given, give patient instructions): Dysmenorrhea (ED), Asthma (ED) Prescriptions: Albuterol Inhaler [Ventolin Hfa Inhaler] 2 puff INHALATION Q6H PRN #1 unit PRN Reason: Dyspnea Albuterol Nebulized [Ventolin Nebulized] 2.5 mg INHALATION Q4H 8 Days #150 ml Is patient prescribed a controlled substance at d/c from ED?: No Referrals: None,Stated [Primary Care Provider] - 1-2 days Forms: Area PCPs Time of Disposition: 02:54
[2022-07-22 02:37] LABS: Anisocytosis Slight; Basophils % (A) 0 %; Eosinophils # (A) 0.9 k/uL (0-0.7); Eosinophils % (A) 7 %; HCT 39.7 % (34.0-46.0); HGB 12.7 gm/dL (11.4-16.0); Hypochromasia Slight; Lymphocytes # (A) 3.6 k/uL (1.0-4.8); Lymphocytes % (A) 30 %; MCH 23.7 pg (25.0-35.0); MCHC 31.9 g/dL (31.0-37.0); MCV 74.5 fL (80.0-100.0); Mean Platelet Volume 7.1; Microcytosis Slight; Monocytes # (A) 0.7 k/uL (0-1.0); Monocytes % (A) 6 %; Neutrophils # (A) 6.8 k/uL (1.3-7.7); Neutrophils % (A) 55 %; Platelet Count 333 k/uL (150-450); RBC 5.33 m/uL (3.80-5.40); WBC 12.3 k/uL (3.8-10.6)
--- NOTE | 2022-07-22 02:41 | US ---
EXAM: US Pelvis Transabdominal and Transvaginal, Complete and US Duplex Arterial/Venous of the Pelvis, Complete CLINICAL HISTORY: US Reason: vaginal bleeding recent IUD placement 05/31 TECHNIQUE: Real-time complete transabdominal and transvaginal pelvic ultrasound with image documentation. Transvaginal imaging was used for better evaluation of the endometrium and adnexa. Real-time duplex ultrasound scan of the arterial and venous flow of the pelvis with color Doppler flow and spectral waveform analysis. COMPARISON: No relevant prior studies available. FINDINGS: Uterus/cervix: The uterus measures 8.7 x 4 x 5.3 cm and is anteverted. The myometrium is unremarkable. There is an IUD in sitting position within the endometrial cavity. The endometrial stripe is normal measuring 8 mm. Right ovary: Obscured. Left ovary: Obscured. Free fluid: No free fluid. IMPRESSION: There is an IUD in sitting position within the endometrial cavity. The endometrial stripe is normal measuring 8 mm. No free fluid is seen in the pelvis. The ovaries obscured.
[2022-07-22 02:48] LABS: Partial Thromboplastin Time 25.1 sec (22.0-30.0); Prothrombin Time 10.5 sec (9.0-12.0)
== END 2022-07-22 03:06 | disposition home or self-care (01) ==
LOC: EC 00:50
DX: N94.6 Dysmenorrhea, unspecified (principal); J45.909 Unspecified asthma, uncomplicated
CPT/HCPCS: 36415; 76830; 85025; 85610; 85730; 99284

== ENCOUNTER 2022-08-01 21:44 | Emergency (ER) | payer OTHER ==
[2022-08-01 21:54] VITALS: TEMP 99.2
[2022-08-01] MEDS ORDERED: DEXAMETHASONE SOD PHOSPHATE 10 MG/ML 1 ML VIAL IVP STA (22:01)
[2022-08-01] MEDS ORDERED: IPRATROPIUM 0.5 MG/2.5 ML NEBU INHALATION STA ×2 (22:01→23:31)
[2022-08-01] MEDS ORDERED: ALBUTEROL NEBULIZED 2.5 MG/3 ML INHALATION STA ×2 (22:01→23:31)
[2022-08-01] MEDS: MAGNESIUM SULFATE-D5W PMX 1 GM in DEXTROSE/WATER 1 100ML.BAG IVPB SCH ×2 (22:08→22:15)
[2022-08-02 00:18] VITALS: BP 137/90
--- NOTE | 2022-08-02 00:52 | ED ---
General Adult HPI - General Chief complaint: Shortness of Breath Stated complaint: Difficulty Breathing, Cough Time Seen by Provider: 08/01/22 21:55 Source: patient Mode of arrival: ambulatory Limitations: no limitations - History of Present Illness Initial comments: This is a 27-year-old female with a past medical history including asthma and seizures presents emergency department for increasing shortness of breath. The patient stated that she has had this shortness of breath has been worsening since . The patient stated that she has gone through almost all of her nebulized albuterol and had not had improvement therefore she came to the emergency department for further evaluation. The patient did have shortness of breath on arrival. The patient stated that she has never been admitted to the hospital for her asthma but stated that she has been in the emergency department several times. The patient was unaware of anything specific that triggers her asthma but stated that any sort of weather changes or smoke can trigger it. The patient denied any other acute pain or complaints at this time. The patient denied any recent sick contacts. - Related Data Home Medications Medication Instructions Recorded Confirmed ARIPiprazole [Abilify] 5 mg PO DAILY 06/09/22 06/22/22 Sertraline [Zoloft] 100 mg PO DAILY 06/09/22 06/22/22 Previous Rx's Medication Instructions Recorded Fluticasone Propionate 220 Mcg 2 puff INHALATION RT-BID #12 gm 06/09/22 [Flovent 220 Mcg Inhaler] Azithromycin [Zithromax] 250 mg PO DAILY 4 Days #4 tab 06/22/22 Fluticasone Propionate 110 Mcg 1 puff INHALATION RT-BID #12 gm 06/22/22 [Flovent 110 Mcg Inhaler] predniSONE [Deltasone] 20 mg PO BID 5 Days #10 tab 06/22/22 Albuterol Inhaler [Ventolin Hfa 2 puff INHALATION Q6H PRN #1 unit 07/22/22 Inhaler] Albuterol Nebulized [Ventolin 2.5 mg INHALATION Q4H 8 Days #150 07/22/22 Nebulized] ml Albuterol Inhaler [Ventolin Hfa 1 - 2 puff INHALATION Q6H PRN #1 08/02/22 Inhaler] kit Albuterol Nebulized [Ventolin 5 mg INHALATION Q6H PRN 6 Days #75 08/02/22 Nebulized] ml dexAMETHasone [Decadron] 10 mg PO ONCE #2.5 tab 08/02/22 Allergies Allergy/AdvReac Type Severity Reaction Status Date / Time No Known Allergies Allergy Verified 08/01/22 21:54 Review of Systems ROS Statement: Those systems with pertinent positive or pertinent negative responses have been documented in the HPI. ROS Other: All systems not noted in ROS Statement are negative. Past Medical History Past Medical History: Asthma, Seizure Disorder Additional Past Medical History / Comment(s): seizure, pre-COPD History of Any Multi-Drug Resistant Organisms: None Reported Past Surgical History: No Surgical Hx Reported Past Psychological History: Anxiety, Bipolar, Depression Smoking Status: Never smoker Past Alcohol Use History: Occasional Past Drug Use History: Marijuana General Exam Limitations: no limitations General appearance: alert, in no apparent distress, obese Head exam: Present: atraumatic, normocephalic, normal inspection Eye exam: Present: normal appearance, PERRL Pupils: Present: normal accommodation ENT exam: Present: normal exam, normal oropharynx, mucous membranes moist Neck exam: Present: normal inspection, full ROM Respiratory exam: Present: wheezes (Inspiratory and expiratory wheezes heard), decreased breath sounds Cardiovascular Exam: Present: normal rhythm, tachycardia, normal heart sounds GI/Abdominal exam: Present: soft, normal bowel sounds Extremities exam: Present: normal inspection, full ROM Back exam: Present: normal inspection, full ROM Neurological exam: Present: alert, oriented X3 Psychiatric exam: Present: normal affect, normal mood Skin exam: Present: warm, dry Course Vital Signs 08/01/22 08/01/22 08/01/22 21:51 22:13 22:23 Temperature 99.2 F Pulse Rate 114 H 108 H 100 Respiratory 34 H 20 Rate Blood Pressure 147/99 134/85 O2 Sat by Pulse 90 L 98 Oximetry 08/01/22 08/01/22 08/01/22 22:28 22:38 23:42 Temperature Pulse Rate 112 H 102 H 94 Respiratory 22 20 Rate Blood Pressure 118/98 122/84 O2 Sat by Pulse 96 98 Oximetry 08/02/22 08/02/22 00:00 00:16 Temperature Pulse Rate 107 H 90 Respiratory 22 Rate Blood Pressure 137/90 O2 Sat by Pulse 95 Oximetry Medical Decision Making - Medical Decision Making Was pt. sent in by a medical professional or institution (, PA, GREENHOUSE ASSISTANT, urgent care, hospital, or retirement...) When possible be specific @ -No Did you speak to anyone other than the patient for history (EMS, parent, family, police, friend...)? What history was obtained from this source @ -No Did you review nursing and triage notes (agree or disagree)? Why? @ -I reviewed and agree with nursing and triage notes Were old charts reviewed (outside hosp., previous admission, EMS record, old EKG, old radiological studies, urgent care reports/EKG's, retirement records)? Report findings @ -No old charts were reviewed Differential Diagnosis (chest pain, altered mental status, abdominal pain women, abdominal pain men, vaginal bleeding, weakness, fever, dyspnea, syncope, headache, dizziness, GI bleed, back pain, seizure, CVA, palpatations, mental health)? @ -Asthma exacerbation, URI, viral syndrome EKG interpreted by me (3pts min.). @ -None X-rays interpreted by me (1pt min.). @ -None done CT interpreted by me (1pt min.). @ -None done U/S interpreted by me (1pt. min.). @ -None done What testing was considered but not performed or refused? (CT, X-rays, U/S, labs)? Why? @ -An x-ray was considered however the patient had no congestion or any signs of a viral illness at this time therefore no imaging was needed at this time. What meds were considered but not given or refused? Why? @ -None Did you discuss the management of the patient with other professionals (professionals i.e. , PA, GREENHOUSE ASSISTANT, lab, RT, psych nurse, geriatric social work professor, employment appeals examiner, teacher, appeals officer, nurse outreach case manager)? Give summary @ -No Was smoking cessation discussed for >3mins.? @ -No Was critical care preformed (if so, how long)? @ -No Were there social determinants of health that impacted care today? How? (Ho melessness, low income, unemployed, alcoholism, drug addiction, transportation, low edu. Level, literacy, decrease access to med. care, [facility], rehab)? @ -No Was there de-escalation of care discussed even if they declined (Discuss DNR or withdrawal of care, Hospice)? DNR status @ -No What co-morbidities impacted this encounter? (DM, HTN, Smoking, COPD, CAD, Cancer, CVA, ARF, Chemo, Hep., AIDS, mental health diagnosis, sleep apnea, morbid obesity)? @ -Asthma, morbid obesity Was patient admitted / discharged? Hospital course, mention meds given and route, prescriptions, significant lab abnormalities, going to OR and other pertinent info. @ -The patient was seen and evaluated emergency department. Physical exam, the patient did have shortness of breath on arrival and was having difficulty in breathing. The patient had a pulse ox of 90% on room air in triage. The patient was also tachycardic. Physical exam showed significant inspiratory and neck surgery wheezes as well as decreased air entry. The patient was given a breathing treatment of albuterol and ipratropium as well as Decadron and magnesium. On reevaluation, the patient did have improvement of her symptoms however was still wheezing therefore was given a second breathing treatment of albuterol and ipratropium. On multiple re-evaluations, the patient was resting in bed comfortably stating that she had significant improvement. The patient did have some minor x-ray wheezes on exam however the patient stated that she felt well to be discharged home. The patient was given a prescription for nebulized albuterol refill as well as an inhaler with a second dose of Decadron as well as sent to the pharmacy. The patient was agreeable to this plan and all of her questions were answered appropriately. The patient was also advised report back to the emergency department if she had worsening shortness of breath despite using her medications as prescribed. The patient was agreeable and was discharged home in stable condition. Undiagnosed new problem with uncertain prognosis? @ -No Drug Therapy requiring intensive monitoring for toxicity (Heparin, Nitro, Insulin, Cardizem)? @ -No Were any procedures done? @ -No Diagnosis/symptom? @ -Asthma exacerbation Acute, or Chronic, or Acute on Chronic? @ -Acute Uncomplicated (without systemic symptoms) or Complicated (systemic symptoms)? @ -Uncomplicated Side effects of treatment? @ -No Exacerbation, Progression, or Severe Exacerbation? @ -Exacerbation Poses a threat to life or bodily function? How? (Chest pain, [place], [place], pneumonia, PE, COPD, DKA, ARF, appy, cholecystitis, CVA, Diverticulitis, Homicidal, Suicidal, threat to staff... and all critical care pts) @ -No Disposition Clinical Impression: Asthma Disposition: HOME SELF-CARE Condition: Stable Instructions (If sedation given, give patient instructions): Asthma (ED) Prescriptions: dexAMETHasone [Decadron] 10 mg PO ONCE #2.5 tab Albuterol Inhaler [Ventolin Hfa Inhaler] 1 - 2 puff INHALATION Q6H PRN #1 kit PRN Reason: Shortness Of Breath Or Wheezing Albuterol Nebulized [Ventolin Nebulized] 5 mg INHALATION Q6H PRN 6 Days #75 ml PRN Reason: Shortness Of Breath Or Wheezing Is patient prescribed a controlled substance at d/c from ED?: No Referrals: None,Stated [Primary Care Provider] - 1-2 days Time of Disposition: 00:50
[2022-08-02 01:20] VITALS: PULSE 96; RESP 20
== END 2022-08-02 01:19 | disposition home or self-care (01) ==
LOC: EC 21:44
DX: J45.909 Unspecified asthma, uncomplicated (principal); F12.90 Cannabis use, unspecified, uncomplicated; Z86.59 Personal history of other mental and behavioral disorders
CPT/HCPCS: 99284 ×2; 96365 ×2; 96375 ×2; 94640; 94644; 96366; J1100; J3475

== ENCOUNTER 2022-08-06 18:56 | Emergency (ER) | payer OTHER ==
[2022-08-06] MEDS ORDERED: SODIUM CHLORIDE 0.9% 1,000 ML IV ONE (19:24)
--- NOTE | 2022-08-06 19:44 | ED ---
General Adult HPI - General Chief complaint: Seizure Stated complaint: seizure, sob Time Seen by Provider: 08/06/22 19:10 Source: patient, EMS, RN notes reviewed Mode of arrival: EMS Limitations: no limitations - History of Present Illness Initial comments: 87-year-old female with a past medical history significant for pseudoseizures presents to the emergency department via EMS with a chief complaint of seizure. Patient reports she was at home she had seizure. According. She is unsure of how long the lasted for. She didn't take any med ication. Dizziness, lightheaded headache, vision changes, vision loss, shortness of breath, chest pain, nausea, vomiting. Denies history of diabetes. Denies recent alcohol or illicit drug use. Patient reports that she has a history of depression she denies any suicidal ideation time. She does report having increased stress at home and she is a mother of 6. - Related Data Home Medications Medication Instructions Recorded Confirmed ARIPiprazole [Abilify] 5 mg PO DAILY 06/09/22 06/22/22 Sertraline [Zoloft] 100 mg PO DAILY 06/09/22 06/22/22 Previous Rx's Medication Instructions Recorded Fluticasone Propionate 220 Mcg 2 puff INHALATION RT-BID #12 gm 06/09/22 [Flovent 220 Mcg Inhaler] Azithromycin [Zithromax] 250 mg PO DAILY 4 Days #4 tab 06/22/22 Fluticasone Propionate 110 Mcg 1 puff INHALATION RT-BID #12 gm 06/22/22 [Flovent 110 Mcg Inhaler] predniSONE [Deltasone] 20 mg PO BID 5 Days #10 tab 06/22/22 Albuterol Inhaler [Ventolin Hfa 2 puff INHALATION Q6H PRN #1 unit 07/22/22 Inhaler] Albuterol Nebulized [Ventolin 2.5 mg INHALATION Q4H 8 Days #150 07/22/22 Nebulized] ml Albuterol Inhaler [Ventolin Hfa 1 - 2 puff INHALATION Q6H PRN #1 08/02/22 Inhaler] kit Albuterol Nebulized [Ventolin 5 mg INHALATION Q6H PRN 6 Days #75 08/02/22 Nebulized] ml dexAMETHasone [Decadron] 10 mg PO ONCE #2.5 tab 08/02/22 Albuterol Nebulized [Ventolin 2.5 mg INHALATION Q4H PRN #75 ml 08/06/22 Nebulized] Allergies Allergy/AdvReac Type Severity Reaction Status Date / Time No Known Allergies Allergy Verified 08/06/22 19:06 Review of Systems ROS Statement: Those systems with pertinent positive or pertinent negative responses have been documented in the HPI. ROS Other: All systems not noted in ROS Statement are negative. Past Medical History Past Medical History: Asthma, Seizure Disorder Additional Past Medical History / Comment(s): seizure, pre-COPD History of Any Multi-Drug Resistant Organisms: None Reported Past Surgical History: No Surgical Hx Reported Past Psychological History: Anxiety, Bipolar, Depression Smoking Status: Former smoker Past Alcohol Use History: Occasional Past Drug Use History: Marijuana General Exam - General Exam Comments Initial Comments: General: Alert, in no acute distress Head: atraumatic normocephalic. Eyes PERRL, EOMI intact, mucous membranes moist Respiratory: Lungs clear to auscultation bilaterally Cardiovascular: Heart rate regular rate and rhythm Abdominal: Soft without guarding or rebound Extremities: Normal inspection with full range of motion and normal capillary refill Neuroogic: alert and oriented 3, CN II-XII intact, able to ambulate with steady gait Skin: warm dry and intact with normal color Limitations: no limitations Course Vital Signs 08/06/22 08/06/22 08/06/22 18:58 19:40 19:45 Temperature 98.2 F Pulse Rate 101 H 97 102 H Respiratory 22 16 Rate Blood Pressure 139/81 139/81 142/103 O2 Sat by Pulse 93 L 95 93 L Oximetry 08/06/22 08/06/22 08/06/22 20:30 20:38 21:30 Temperature Pulse Rate 94 103 H 98 Respiratory 16 Rate Blood Pressure 141/88 O2 Sat by Pulse 94 L Oximetry 08/06/22 21:58 Temperature Pulse Rate 88 Respiratory 16 Rate Blood Pressure 142/86 O2 Sat by Pulse 94 L Oximetry EKG Findings - EKG Comments: EKG Findings:: I interpreted the following: EKG performed at 20:57. Rate 88 bpm normal sinus rhythm. NH interval 138, QRS duration 84, QT/QTC 349/395 Medical Decision Making - Medical Decision Making Was pt. sent in by a medical professional or institution (, PA, SIEBEL CONSULTANT, urgent care, hospital, or skilled nursing...) When possible be specific @ -[No] Did you speak to anyone other than the patient for history (EMS, parent, family, police, friend...)? What history was obtained from this source @ -[No] Did you review nursing and triage notes (agree or disagree)? Why? @ -[I reviewed and agree with nursing and triage notes] Were old charts reviewed (outside hosp., previous admission, EMS record, old EKG, old radiological studies, urgent care reports/EKG's, skilled nursing records)? Report findings @ -[No old charts were reviewed] Differential Diagnosis (chest pain, altered mental status, abdominal pain women, abdominal pain men, vaginal bleeding, weakness, fever, dyspnea, syncope, headache, dizziness, GI bleed, back pain, seizure, CVA, palpatations, mental health, musculoskeletal)? @ -[not applicable] EKG interpreted by me (3pts min.). @ -[As above] X-rays interpreted by me (1pt min.). @ -[None done] CT interpreted by me (1pt min.). @ -CT negative for any evidence of intracranial process U/S interpreted by me (1pt. min.). @ -[None done] What testing was considered but not performed or refused? (CT, X-rays, U/S, labs)? Why? @ -[None] What meds were considered but not given or refused? Why? @ -[None] Did you discuss the management of the patient with other professionals (professionals i.e. , PA, SIEBEL CONSULTANT, lab, RT, psych nurse, transition social worker, equipment application specialist, teacher, boating safety officer, mental health case manager)? Give summary @ -[No] Was smoking cessation discussed for >3mins.? @ -[No] Was critical care preformed (if so, how long)? @ -[No] Were there social determinants of health that impacted care today? How? (Homelessness, low income, unemployed, alcoholism, drug addiction, transportation, low edu. Level, literacy, decrease access to med. care, prison, rehab)? @ -[No] Was there de-escalation of care discussed even if they declined (Discuss DNR or withdrawal of care, Hospice)? DNR status @ -[No] What co-morbidities impacted this encounter? (DM, HTN, Smoking, COPD, CAD, Cancer, CVA, ARF, Chemo, Hep., AIDS, mental health diagnosis, sleep apnea, morbid obesity)? @ -[None] Was patient admitted / discharged? Hospital course, mention meds given and route, prescriptions, significant lab abnormalities, going to OR and other pertinent info. @ -@Discharged. 27-year-old female who presents the emergency department with seizure Patient had a thorough history and physical exam performed on the ED. Physical exam is essentially unremarkable heart rate regular rate and rhythm, lungs clear to auscultation bilaterally, abdomen soft and non-tender. Patient had no focal neuro deficits upon exam. Patient able to ambulate with steady gait. Patient was given 1 L of IV fluids and DuoNeb treatment. Patient had lab work and imaging performed which was negative. . I discussed the results in detail with the patient verbalized understanding and all questions were addressed. Return precautions were discussed at length. Patient discharged in stable condition. Case discussed with Dr. Thacker [facility] who agrees with plan of care. Undiagnosed new problem with uncertain prognosis? @ -[No] Drug Therapy requiring intensive monitoring for toxicity (Heparin, Nitro, Insulin, Cardizem)? @ -[No] Were any procedures done? @ -[No] Diagnosis/symptom? @ -seizure - hx of asthma Acute, or Chronic, or Acute on Chronic? @ -Acute Uncomplicated (without systemic symptoms) or Complicated (systemic symptoms)? @ -Uncomplicated Side effects of treatment? @ -[No] Exacerbation, Progression, or Severe Exacerbation? @ -[No] Poses a threat to life or bodily function? How? (Chest pain, [place], [place], pneumonia, PE, COPD, DKA, ARF, appy, cholecystitis, CVA, Diverticulitis, Homicidal, Suicidal, threat to staff... and all critical care pts) @ -Low likelihood - Lab Data Result diagrams: 08/06/22 19:30 08/06/22 19:30 Lab Results 08/06/22 08/06/22 08/06/22 Range/Units 19:30 19:30 19:30 WBC (3.8-10.6) k/uL RBC (3.80-5.40) m/uL Hgb (11.4-16.0) gm/dL Hct (34.0-46.0) % MCV (80.0-100.0) fL MCH (25.0-35.0) pg MCHC (31.0-37.0) g/dL RDW (11.5-15.5) % Plt Count (150-450) k/uL MPV Neutrophils % % Lymphocytes % % Monocytes % % Eosinophils % % Basophils % % Neutrophils # (1.3-7.7) k/uL Lymphocytes # (1.0-4.8) k/uL Monocytes # (0-1.0) k/uL Eosinophils # (0-0.7) k/uL Basophils # (0-0.2) k/uL Hypochromasia Anisocytosis Microcytosis PT 10.4 (9.0-12.0) sec INR 1.0 (<1.2) Sodium 138 (137-145) mmol/L Potassium 4.5 (3.5-5.1) mmol/L Chloride 104 (98-107) mmol/L Carbon Dioxide 28 (22-30) mmol/L Anion Gap 6 mmol/L BUN 13 (7-17) mg/dL Creatinine 0.63 (0.52-1.04) mg/dL Est GFR (CKD-EPI)AfAm >90 (>60 ml/min/1.73 sqM) Est GFR (CKD-EPI)NonAf >90 (>60 ml/min/1.73 sqM) Glucose 100 H (74-99) mg/dL Plasma Lactic Acid Jorge 1.4 (0.7-2.0) mmol/L Calcium 9.4 (8.4-10.2) mg/dL Total Bilirubin 0.4 (0.2-1.3) mg/dL AST 65 H (14-36) U/L ALT 80 H (4-34) U/L Alkaline Phosphatase 58 (38-126) U/L Total Protein 7.3 (6.3-8.2) g/dL Albumin 4.2 (3.5-5.0) g/dL Urine Color Urine Appearance (Clear) Urine pH (5.0-8.0) Ur Specific [place] (1.001-1.035) Urine Protein (Negative) Urine Glucose (UA) (Negative) Urine Ketones (Negative) Urine Blood (Negative) Urine Nitrite (Negative) Urine Bilirubin (Negative) Urine Urobilinogen (<2.0) mg/dL Ur Leukocyte Esterase (Negative) Urine RBC (0-5) /hpf Urine WBC (0-5) /hpf Ur Squamous Epith Cells (0-4) /hpf Urine Mucus (None) /hpf Urine HCG, Qual (Not Detectd) 08/06/22 08/06/22 08/06/22 Range/Units 19:30 19:45 20:00 WBC 7.4 (3.8-10.6) k/uL RBC 5.13 (3.80-5.40) m/uL Hgb 12.4 (11.4-16.0) gm/dL Hct 38.9 (34.0-46.0) % MCV 75.9 L (80.0-100.0) fL MCH 24.2 L (25.0-35.0) pg MCHC 31.9 (31.0-37.0) g/dL RDW 16.0 H (11.5-15.5) % Plt Count 313 (150-450) k/uL MPV 7.3 Neutrophils % 51 % Lymphocytes % 28 % Monocytes % 6 % Eosinophils % 13 % Basophils % 0 % Neutrophils # 3.8 (1.3-7.7) k/uL Lymphocytes # 2.1 (1.0-4.8) k/uL Monocytes # 0.4 (0-1.0) k/uL Eosinophils # 0.9 H (0-0.7) k/uL Basophils # 0.0 (0-0.2) k/uL Hypochromasia Slight Anisocytosis Slight Microcytosis Slight PT (9.0-12.0) sec INR (<1.2) Sodium (137-145) mmol/L Potassium (3.5-5.1) mmol/L Chloride (98-107) mmol/L Carbon Dioxide (22-30) mmol/L Anion Gap mmol/L BUN (7-17) mg/dL Creatinine (0.52-1.04) mg/dL Est GFR (CKD-EPI)AfAm (>60 ml/min/1.73 sqM) Est GFR (CKD-EPI)NonAf (>60 ml/min/1.73 sqM) Glucose (74-99) mg/dL Plasma Lactic Acid Jorge (0.7-2.0) mmol/L Calcium (8.4-10.2) mg/dL Total Bilirubin (0.2-1.3) mg/dL AST (14-36) U/L ALT (4-34) U/L Alkaline Phosphatase (38-126) U/L Total Protein (6.3-8.2) g/dL Albumin (3.5-5.0) g/dL Urine Color Light Yellow Urine Appearance Clear (Clear) Urine pH 5.5 (5.0-8.0) Ur Specific [place] 1.017 (1.001-1.035) Urine Protein Negative (Negative) Urine Glucose (UA) Negative (Negative) Urine Ketones Negative (Negative) Urine Blood Small H (Negative) Urine Nitrite Negative (Negative) Urine Bilirubin Negative (Negative) Urine Urobilinogen <2.0 (<2.0) mg/dL Ur Leukocyte Esterase Moderate H (Negative) Urine RBC 5 (0-5) /hpf Urine WBC 7 H (0-5) /hpf Ur Squamous Epith Cells 5 H (0-4) /hpf Urine Mucus Rare H (None) /hpf Urine HCG, Qual Not Detected (Not Detectd) Disposition Clinical Impression: Seizure Disposition: HOME SELF-CARE Condition: Stable Instructions (If sedation given, give patient instructions): Recurrent Seizures in Adults (ED) Additional Instructions: Please return to the nearest emergency department symptoms worsen or persist Prescriptions: Albuterol Nebulized [Ventolin Nebulized] 2.5 mg INHALATION Q4H PRN #75 ml PRN Reason: difficulty in breathing Is patient prescribed a controlled substance at d/c from ED?: No Referrals: None,Stated [Primary Care Provider] - 1-2 days Time of Disposition: 21:46
[2022-08-06] MEDS ORDERED: IPRATROPIUM-ALBUTEROL 3 ML NEB INHALATION STA (19:53)
[2022-08-06 19:54] LABS: Anisocytosis Slight; Basophils % (A) 0 %; Eosinophils # (A) 0.9 k/uL (0-0.7); Eosinophils % (A) 13 %; HCT 38.9 % (34.0-46.0); HGB 12.4 gm/dL (11.4-16.0); Hypochromasia Slight; Lymphocytes # (A) 2.1 k/uL (1.0-4.8); Lymphocytes % (A) 28 %; MCH 24.2 pg (25.0-35.0); MCHC 31.9 g/dL (31.0-37.0); MCV 75.9 fL (80.0-100.0); Mean Platelet Volume 7.3; Microcytosis Slight; Monocytes # (A) 0.4 k/uL (0-1.0); Monocytes % (A) 6 %; Neutrophils # (A) 3.8 k/uL (1.3-7.7); Neutrophils % (A) 51 %; Platelet Count 313 k/uL (150-450); RBC 5.13 m/uL (3.80-5.40); WBC 7.4 k/uL (3.8-10.6)
[2022-08-06 19:59] LABS: Appearance,Urine Clear (Clear); Bilirubin,Urine Negative (Negative); Blood,Urine Small (Negative); Color,Urine Light Yellow; Glucose,Urine (UA) Negative (Negative); Ketones,Urine Negative (Negative); Leukocyte Esterase,Urine Moderate (Negative); Mucus,Urine Rare /hpf; Nitrite,Urine Negative (Negative); PH, Urine 5.5 (5.0-8.0); Protein,Urine Negative (Negative); RBC,Urine 5 /hpf (0-5); Specific Gravity,Urine 1.017 (1.001-1.035); Squamous Epithelial Cell,Urine 5 /hpf (0-4); Urobilinogen,Urine <2.0 mg/dL (<2.0); WBC,Urine 7 /hpf (0-5)
[2022-08-06 20:02] LABS: Prothrombin Time 10.4 sec (9.0-12.0)
[2022-08-06 20:04] LABS: ALT 80 U/L (4-34); AST 65 U/L (14-36); African American GFR (CKD) >90 (>60 ml/min/1.73 sqM); Albumin 4.2 g/dL (3.5-5.0); Alkaline Phosphatase 58 U/L (38-126); Anion Gap 6 mmol/L; Blood Urea Nitrogen 13 mg/dL (7-17); Calcium 9.4 mg/dL (8.4-10.2); Carbon Dioxide 28 mmol/L (22-30); Chloride 104 mmol/L (98-107); Glucose 100 mg/dL (74-99); Non-African American GFR(CKD) >90 (>60 ml/min/1.73 sqM); Potassium 4.5 mmol/L (3.5-5.1); Sodium 138 mmol/L (137-145); Total Bilirubin 0.4 mg/dL (0.2-1.3); Total Protein 7.3 g/dL (6.3-8.2)
[2022-08-06 20:54] VITALS: RESP 16; TEMP 98.2
--- NOTE | 2022-08-06 21:35 | CT ---
EXAMINATION TYPE: CT brain cspine wo con CT DLP: 2006.6 mGycm, Automated exposure control for dose reduction was used. DATE OF EXAM: 08/06/2022 9:17 PM COMPARISON: None. CLINICAL INDICATION:Female, 27 years old with history of pain; seizure TECHNIQUE: Brain: Multiple axial CT images of the brain were obtained without IV contrast. Cspine: Axial CT images from the skull base to the inferior aspect of T2 we obtained without intraven ous contrast. Coronal and sagittal reformatted images were also reviewed. FINDINGS: Brain: Extra-axial spaces: No abnormal extra-axial fluid collections. Ventricular system: Within normal limits Cerebral parenchyma: No acute intraparenchymal hemorrhage or mass effect. The mccoy-white junction is well differentiated. Cerebellum: Unremarkable. Mass effect: No evidence of midline shift. Intracranial vasculature: unremarkable Soft tissues: Normal. Calvarium/osseous structures: No depressed skull fracture. Paranasal sinuses and mastoid air cells: Mild scattered mucosal thickening and or secretions. Visualized orbits: Orbital contents are intact. Cervical spine: Fracture: None. Osseous structures: Nonfusion the posterior arch of C1. Vertebral alignment: Within normal limits. Spinal canal/Neural Foramina: No evidence of significant spinal canal narrowing. No evidence for sign ificant neural foraminal stenosis. Neck soft tissues: Prevertebral soft tissues are within normal limits. Other: The airway is patent. The lung apices are clear. IMPRESSION: 1. No acute intracranial process. 2. No evidence of cervical spine fracture.
[2022-08-06 22:07] VITALS: BP 142/86; PULSE 88
== END 2022-08-06 22:06 | disposition home or self-care (01) ==
LOC: EC 18:56
DX: R56.9 Unspecified convulsions (principal); J45.909 Unspecified asthma, uncomplicated; F41.9 Anxiety disorder, unspecified; F31.9 Bipolar disorder, unspecified; F12.90 Cannabis use, unspecified, uncomplicated; Z87.891 Personal history of nicotine dependence; Z79.899 Other long term (current) drug therapy
CPT/HCPCS: 36415; 70450; 72125; 80053; 81001; 81025; 83605; 85025; 85610; 93005; 94640; 96360; 99285

== ENCOUNTER 2023-01-06 19:16 | Emergency (ER) | payer OTHER ==
[2023-01-06] MEDS ORDERED: IPRATROPIUM-ALBUTEROL 3 ML NEB INHALATION STA (19:30)
--- NOTE | 2023-01-06 19:32 | ED ---
General Adult HPI - General Chief complaint: Shortness of Breath Stated complaint: NAILA Time Seen by Provider: 01/06/23 19:24 Source: patient, RN notes reviewed Mode of arrival: ambulatory Limitations: no limitations - History of Present Illness Initial comments: Patient is a pleasant 27-year-old female presenting to the emergency department with concerns with wheezing. Patient does have history of chronic asthma. Patient has an inhaler. Patient is trying to get a nebulizer machine however has concerns that she was. Patient has occasional dry cough. No fever. No leg pain or leg swelling. Symptoms are similar to previous asthma. - Related Data Home Medications Medication Instructions Recorded Confirmed ARIPiprazole [Abilify] 5 mg PO DAILY 06/09/22 06/22/22 Sertraline [Zoloft] 100 mg PO DAILY 06/09/22 06/22/22 Previous Rx's Medication Instructions Recorded Fluticasone Propionate 220 Mcg 2 puff INHALATION RT-BID #12 gm 06/09/22 [Flovent 220 Mcg Inhaler] Azithromycin [Zithromax] 250 mg PO DAILY 4 Days #4 tab 06/22/22 Fluticasone Propionate 110 Mcg 1 puff INHALATION RT-BID #12 gm 06/22/22 [Flovent 110 Mcg Inhaler] predniSONE [Deltasone] 20 mg PO BID 5 Days #10 tab 06/22/22 Albuterol Inhaler [Ventolin Hfa 2 puff INHALATION Q6H PRN #1 unit 07/22/22 Inhaler] Albuterol Nebulized [Ventolin 2.5 mg INHALATION Q4H 8 Days #150 07/22/22 Nebulized] ml Albuterol Inhaler [Ventolin Hfa 1 - 2 puff INHALATION Q6H PRN #1 08/02/22 Inhaler] kit Albuterol Nebulized [Ventolin 5 mg INHALATION Q6H PRN 6 Days #75 08/02/22 Nebulized] ml dexAMETHasone [Decadron] 10 mg PO ONCE #2.5 tab 08/02/22 Albuterol Nebulized [Ventolin 2.5 mg INHALATION Q4H PRN #75 ml 08/06/22 Nebulized] Allergies Allergy/AdvReac Type Severity Reaction Status Date / Time No Known Allergies Allergy Verified 01/06/23 19:22 Review of Systems ROS Statement: Those systems with pertinent positive or pertinent negative responses have been documented in the HPI. ROS Other: All systems not noted in ROS Statement are negative. Constitutional: Denies: fever Eyes: Denies: eye pain ENT: Denies: ear pain Respiratory: Reports: as per HPI, cough, dyspnea, wheezes Cardiovascular: Denies: chest pain Endocrine: Denies: fatigue Gastrointestinal: Denies: abdominal pain Genitourinary: Denies: dysuria Musculoskeletal: Denies: back pain Skin: Denies: rash Neurological: Denies: weakness Past Medical History Past Medical History: Asthma, Seizure Disorder Additional Past Medical History / Comment(s): seizure, pre-COPD History of Any Multi-Drug Resistant Organisms: None Reported Past Surgical History: No Surgical Hx Reported Past Psychological History: Anxiety, Bipolar, Depression Smoking Status: Former smoker Past Alcohol Use History: Occasional Past Drug Use History: Marijuana General Exam Limitations: no limitations General appearance: alert, in no apparent distress Head exam: Present: normocephalic Eye exam: Present: normal appearance Neck exam: Present: normal inspection Respiratory exam: Present: wheezes Cardiovascular Exam: Present: regular rate, normal rhythm GI/Abdominal exam: Present: soft. Absent: tenderness Extremities exam: Present: normal inspection. Absent: pedal edema, calf tenderness Neurological exam: Present: alert Psychiatric exam: Present: normal affect, normal mood Skin exam: Present: normal color Course Vital Signs 01/06/23 01/06/23 01/06/23 19:19 19:49 19:51 Temperature 97.9 F Pulse Rate 92 92 Respiratory 22 20 Rate Blood Pressure 134/91 O2 Sat by Pulse 92 L Oximetry 01/06/23 19:57 Temperature Pulse Rate 94 Respiratory Rate Blood Pressure O2 Sat by Pulse Oximetry Medical Decision Making - Medical Decision Making Discussion with patient regarding chest x-ray as well as viral testing and patient refuses. Patient states this is her regular asthma. Was pt. sent in by a medical professional or institution (, PA, BENDING ROLL OPERATOR, urgent care, hospital, or fci...) When possible be specific @ -No Did you speak to anyone other than the patient for history (EMS, parent, family, police, friend...)? What history was obtained from this source @ -No Did you review nursing and triage notes (agree or disagree)? Why? @ -I reviewed and agree with nursing and triage notes Were old charts reviewed (outside hosp., previous admission, EMS record, old EKG, old radiological studies, urgent care reports/EKG's, [facility]ci records)? Report findings @ -No old charts were reviewed Differential Diagnosis (chest pain, altered mental status, abdominal pain women, abdominal pain men, vaginal bleeding, weakness, fever, dyspnea, syncope, headache, dizziness, GI bleed, back pain, seizure, CVA, palpatations, mental health, musculoskeletal)? @ -Differential Dyspnea: Coronary syndrome, arrhythmia, tamponade, asthma, COPD, pulmonary embolism, pneumonia, pneumothorax, pulmonary effusion, anaphylaxis, diabetic ketoacidosis, flailed chest, pulmonary contusion, diaphragmatic rupture, anemia, neuromuscular, this is not meant to be an all-inclusive list. EKG interpreted by me (3pts min.). @ -As above X-rays interpreted by me (1pt min.). @ -None done CT interpreted by me (1pt min.). @ -None done U/S interpreted by me (1pt. min.). @ -None done What testing was considered but not performed or refused? (CT, X-rays, U/S, labs)? Why? @ -Considered x-ray however patient refuses What meds were considered but not given or refused? Why? @ -Considered steroids however patient states she was just on them. Also considered IM injection however patient refuses this as well. Did you discuss the management of the patient with other professionals (professionals i.e. , PA, BENDING ROLL OPERATOR, lab, RT, psych nurse, director of social services, special loan officer, teacher, major gifts officer, case monitor)? Give summary @ -No Was smoking cessation discussed for >3mins.? @ -No Was critical care preformed (if so, how long)? @ -No Were there social determinants of health that impacted care today? How? (Homelessness, low income, unemployed, alcoholism, drug addiction, transportation, low edu. Level, literacy, decrease access to med. care, [facility], rehab)? @ -No Was there de-escalation of care discussed even if they declined (Discuss DNR or withdrawal of care, Hospice)? DNR status @ -No What co-morbidities impacted this encounter? (DM, HTN, Smoking, COPD, CAD, Cancer, CVA, ARF, Chemo, Hep., AIDS, mental health diagnosis, sleep apnea, morbid obesity)? @ -None Was patient admitted / discharged? Hospital course, mention meds given and route, prescriptions, significant lab abnormalities, going to OR and other pertinent info. @ -Patient reevaluated and is improved with nebulizer treatment. Patient still has some wheezing. Patient is requesting discharge home. Undiagnosed new problem with uncertain prognosis? @ -No Drug Therapy requiring intensive monitoring for toxicity (Heparin, Nitro, Insulin, Cardizem)? @ -No Were any procedures done? @ -No Diagnosis/symptom? @ -Asthma Acute, or Chronic, or Acute on Chronic? @ -Acute Uncomplicated (without systemic symptoms) or Complicated (systemic symptoms)? @ -default Side effects of treatment? @ -No Exacerbation, Progression, or Severe Exacerbation? @ -No Poses a threat to life or bodily function? How? (Chest pain, USA, PA, pneumonia, PE, COPD, DKA, ARF, appy, cholecystitis, CVA, Diverticulitis, Homicidal, Suicidal, threat to staff... and all critical care pts) @ -No Disposition Clinical Impression: Asthma with acute exacerbation Disposition: HOME SELF-CARE Condition: Stable Instructions (If sedation given, give patient instructions): Asthma (ED) Additional Instructions: Please do follow-up to primary care physician in the next day or 2 for recheck. Return for fever, difficulty breathing, worsening or changing symptoms or any other concerns. Is patient prescribed a controlled substance at d/c from ED?: No Referrals: Al Goodwin MD [STAFF PHYSICIAN] - 1-2 days Time of Disposition: 20:18
[2023-01-06 19:33] VITALS: TEMP 97.9
[2023-01-06 23:45] VITALS: BP 130/80; PULSE 90; RESP 16
== END 2023-01-06 20:30 | disposition home or self-care (01) ==
LOC: EC 19:16
DX: J45.901 Unspecified asthma with (acute) exacerbation (principal); F41.9 Anxiety disorder, unspecified; F31.9 Bipolar disorder, unspecified; F12.90 Cannabis use, unspecified, uncomplicated; Z79.899 Other long term (current) drug therapy; Z87.891 Personal history of nicotine dependence
CPT/HCPCS: 94640; 99284

== ENCOUNTER 2023-01-16 11:45 | Emergency (ER) | payer OTHER ==
[2023-01-16] MEDS ORDERED: methylPREDNISolone SOD SUCCI 125 MG/2 ML VIAL IV STA (12:15)
[2023-01-16] MEDS ORDERED: IPRATROPIUM-ALBUTEROL 3 ML NEB INHALATION STA ×2 (12:15→13:51)
[2023-01-16] MEDS ORDERED: SODIUM CHLORIDE 0.9% 500 ML 500 ML IV STA (12:36)
--- NOTE | 2023-01-16 12:37 | XR ---
EXAMINATION TYPE: XR chest 2V DATE OF EXAM: 01/16/2023 12:32 PM CLINICAL INDICATION:Female, 27 years old with history of silverio; [facility] COMPARISON: Chest radiographs from 06/22/2022. TECHNIQUE: XR chest 2V Frontal and lateral views of the chest. FINDINGS: Lungs/Pleura: There is no evidence of pleural effusion, focal consolidation, or pneumothorax. Pulmonary vascularity: Unremarkable. Heart/mediastinum: Cardiomediastinal silhouette is unremarkable. Musculoskeletal: No acute osseous pathology. IMPRESSION: No acute cardiopulmonary disease/process.
[2023-01-16 12:55] LABS: Anisocytosis Slight; Basophils % (A) 0 %; Eosinophils # (A) 0.9 k/uL (0-0.7); Eosinophils % (A) 10 %; HCT 39.4 % (34.0-46.0); HGB 12.8 gm/dL (11.4-16.0); Hypochromasia Slight; Lymphocytes # (A) 2.1 k/uL (1.0-4.8); Lymphocytes % (A) 23 %; MCH 25.2 pg (25.0-35.0); MCHC 32.6 g/dL (31.0-37.0); MCV 77.5 fL (80.0-100.0); Mean Platelet Volume 7.6; Microcytosis Slight; Monocytes # (A) 0.3 k/uL (0-1.0); Monocytes % (A) 4 %; Neutrophils # (A) 5.4 k/uL (1.3-7.7); Neutrophils % (A) 62 %; Platelet Count 251 k/uL (150-450); RBC 5.09 m/uL (3.80-5.40); RDW 16.2 % (11.5-15.5); WBC 8.8 k/uL (3.8-10.6)
[2023-01-16 13:20] LABS: African American GFR (CKD) >90 (>60 ml/min/1.73 sqM); Anion Gap 14 mmol/L; Blood Urea Nitrogen 10 mg/dL (7-17); Calcium 9.8 mg/dL (8.4-10.2); Carbon Dioxide 24 mmol/L (22-30); Chloride 102 mmol/L (98-107); Glucose 153 mg/dL (74-99); Non-African American GFR(CKD) >90 (>60 ml/min/1.73 sqM); Potassium 4.4 mmol/L (3.5-5.1); Sodium 140 mmol/L (137-145)
[2023-01-16 16:00] VITALS: BP 124/79; PULSE 102; RESP 18
[2023-01-16] MEDS ORDERED: AZITHROMYCIN 500 MG TAB PO STA (16:16)
--- NOTE | 2023-01-16 16:16 | ED ---
General Adult HPI - General Chief complaint: Shortness of Breath Stated complaint: SOB Time Seen by Provider: 01/16/23 12:11 Source: patient, EMS, RN notes reviewed, old records reviewed Mode of arrival: EMS Limitations: no limitations - History of Present Illness Initial comments: Patient is a 27-year-old female who presents emergency Department complaining of asthma exacerbation. Has a history of bad asthma. Has been seen here before for similar complaints. States she is uncertain what her trigger was this time however she attempted multiple breathing treatments home without much improvement. Patient has been having a mild nonproductive cough as well. No other acute complaints at this time. Denies chest pain, abdominal pain, nausea, vomiting. Presents for further evaluation. - Related Data Home Medications Medication Instructions Recorded Confirmed ARIPiprazole [Abilify] 5 mg PO DAILY 06/09/22 06/22/22 Sertraline [Zoloft] 100 mg PO DAILY 06/09/22 06/22/22 Previous Rx's Medication Instructions Recorded Fluticasone Propionate 220 Mcg 2 puff INHALATION RT-BID #12 gm 06/09/22 [Flovent 220 Mcg Inhaler] Azithromycin [Zithromax] 250 mg PO DAILY 4 Days #4 tab 06/22/22 Fluticasone Propionate 110 Mcg 1 puff INHALATION RT-BID #12 gm 06/22/22 [Flovent 110 Mcg Inhaler] predniSONE [Deltasone] 20 mg PO BID 5 Days #10 tab 06/22/22 Albuterol Inhaler [Ventolin Hfa 2 puff INHALATION Q6H PRN #1 unit 07/22/22 Inhaler] Albuterol Nebulized [Ventolin 2.5 mg INHALATION Q4H 8 Days #150 07/22/22 Nebulized] ml Albuterol Inhaler [Ventolin Hfa 1 - 2 puff INHALATION Q6H PRN #1 08/02/22 Inhaler] kit Albuterol Nebulized [Ventolin 5 mg INHALATION Q6H PRN 6 Days #75 08/02/22 Nebulized] ml dexAMETHasone [Decadron] 10 mg PO ONCE #2.5 tab 08/02/22 Albuterol Nebulized [Ventolin 2.5 mg INHALATION Q4H PRN #75 ml 08/06/22 Nebulized] Albuterol Inhaler [Ventolin Hfa 2 puff INHALATION Q6H PRN #1 each 01/16/23 Inhaler] Azithromycin [Zithromax] 250 mg PO DAILY 4 Days #4 tab 01/16/23 predniSONE [Deltasone] 40 mg PO DAILY 5 Days #10 tab 01/16/23 Allergies Allergy/AdvReac Type Severity Reaction Status Date / Time No Known Allergies Allergy Verified 01/16/23 11:59 Review of Systems ROS Statement: Those systems with pertinent positive or pertinent negative responses have been documented in the HPI. Review of Systems: CONST: Denies fever EYES: Denies blurry vision ENT: Denies nasal congestion C/V: Denies Chest pain RESP: Endorses Shortness of breath GI: Denies abdominal pain : Denies dysuria SKIN: Denies rash. MSK: Denies joint pain. NEURO: Denies headache ROS Other: All systems not noted in ROS Statement are negative. Past Medical History Past Medical History: Asthma, Seizure Disorder Additional Past Medical History / Comment(s): seizure, pre-COPD History of Any Multi-Drug Resistant Organisms: None Reported Past Surgical History: No Surgical Hx Reported Past Psychological History: Anxiety, Bipolar, Depression Smoking Status: Former smoker Past Alcohol Use History: Occasional Past Drug Use History: Marijuana General Exam - General Exam Comments Initial Comments: General: Appears in no acute distress. HEAD: Normal with no signs of head trauma. EYES: PERRLA, EOMI, conjunctiva normal, no discharge. ENT: Hearing grossly intact, normal oropharynx. RESPIRATORY: Significant bilateral end expiratory wheezing. Hypoxic on room air to 88%. Requiring 2 L nasal cannula oxygen at this time. C/V: Tachycardia. S1 and S2 auscultated, no edema, peripheral pulses 2+ and intact throughout ABD: Abd is soft, nontender, nondistended EXT: Normal range of motion, no obvious deformity SKIN: No rashes or lesions observed on exposed skin. NEURO: Alert and oriented 4. Limitations: no limitations Course Vital Signs 01/16/23 01/16/23 01/16/23 11:52 14:18 14:25 Pulse Rate 125 H 102 H 100 Respiratory 24 Rate Blood Pressure 125/99 O2 Sat by Pulse 91 L Oximetry 01/16/23 01/16/23 01/16/23 14:40 15:19 15:35 Pulse Rate 105 H 98 102 H Respiratory 20 Rate Blood Pressure 136/87 O2 Sat by Pulse 93 L Oximetry 01/16/23 01/16/23 15:49 16:26 Pulse Rate 102 H Respiratory 18 18 Rate Blood Pressure 124/79 O2 Sat by Pulse 92 L Oximetry Medical Decision Making - Medical Decision Making Was pt. sent in by a medical professional or institution (, JUAN ANTONIO, [employer], urgent care, hospital, or [facility]...) When possible be specific @ -No Did you speak to anyone other than the patient for history (EMS, parent, family, police, friend...)? What history was obtained from this source @ -No Did you review nursing and triage notes (agree or disagree)? Why? @ -I reviewed and agree with nursing and triage notes Were old charts reviewed (outside hosp., previous admission, EMS record, old EKG, old radiological studies, urgent care reports/EKG's, [facility] records)? Report findings @ -Old charts reviewed Differential Diagnosis (chest pain, altered mental status, abdominal pain women, abdominal pain men, vaginal bleeding, weakness, fever, dyspnea, syncope, headache, dizziness, GI bleed, back pain, seizure, CVA, palpatations, mental health, musculoskeletal)? @ -Differential Dyspnea: Coronary syndrome, arrhythmia, tamponade, asthma, COPD, pulmonary embolism, pneumonia, pneumothorax, pulmonary effusion, anaphylaxis, diabetic ketoacidosis, flailed chest, pulmonary contusion, diaphragmatic rupture, anemia, neuromusc ular, this is not meant to be an all-inclusive list. EKG interpreted by me (3pts min.). @ -As above X-rays interpreted by me (1pt min.). @ -Chest x-ray reveals no obvious acute cardiopulmonary process. CT interpreted by me (1pt min.). @ -None done U/S interpreted by me (1pt. min.). @ -None done What testing was considered but not performed or refused? (CT, X-rays, U/S, labs)? Why? @ -None What meds were considered but not given or refused? Why? @ -None Did you discuss the management of the patient with other professionals (professionals i.e. JUAN ANTONIO Kamara, [employer], lab, RT, psych nurse, social media content manager, heel blacker, teacher, truant officer, leather case finisher)? Give summary @ -No Was smoking cessation discussed for >3mins.? @ -No Was critical care preformed (if so, how long)? @ -No Were there social determinants of health that impacted care today? How? (Homelessness, low income, unemployed, alcoholism, drug addiction, transportation, low edu. Level, literacy, decrease access to med. care, skilled nursing, rehab)? @ -No Was there de-escalation of care discussed even if they declined (Discuss DNR or withdrawal of care, Hospice)? DNR status @ -No What co-morbidities impacted this encounter? (DM, HTN, Smoking, COPD, CAD, Cancer, CVA, ARF, Chemo, Hep., AIDS, mental health diagnosis, sleep apnea, morbid obesity)? @ -None Was patient admitted / discharged? Hospital course, mention meds given and route, prescriptions, significant lab abnormalities, going to OR and other pertinent info. @ -Based on patient's presentation and physical exam, concern for asthma exacerbation. Requiring the levels of nasal cannula oxygen at this time. We will obtain basic labs, viral swabs, chest x-ray, screening EKG. Patient will receive IV steroids, breathing treatments, low dose IV fluid bolus. Patient was in agreement this plan. Patient's laboratory studies are relatively unremarkable. Vital signs are negative. Chest x-ray unremarkable. EKG shows sinus tachycardia. Following initial breathing treatment, patient is now saturating 92-94% on room air. We will obtain a second breathing treatment and she still is mildly wheezy but is feeling improved. Second breathing treatment administered and patient remains saturating between 90-94%. States she typically saturates between 93-95% home. Is feeling improved. No longer requiring oxygen. Offered admission however we both agree patient can likely go home. Recommended strict return precautions. I will provide the patient with a prescription for prednisone, azithromycin, albuterol inhaler. I instructed the patient to follow up with their PCP in the next 1-3 days. . I explained that the patient should return to the emergency department if they experience any worsening symptoms. Strict return precautions were discussed with the patient. The patient expressed understanding of these instructions. I answered all questions that the patient had. The patient was discharged home in good condition with their prescriptions and follow up information. Undiagnosed new problem with uncertain prognosis? @ -No Drug Therapy requiring intensive monitoring for toxicity (Heparin, Nitro, Insulin, Cardizem)? @ -No Were any procedures done? @ -No Diagnosis/symptom? @ -Asthma exacerbation, tracheal bronchitis Acute, or Chronic, or Acute on Chronic? @ -Acute on chronic Uncomplicated (without systemic symptoms) or Complicated (systemic symptoms)? @ -Complicated Side effects of treatment? @ -No Exacerbation, Progression, or Severe Exacerbation? @ -Exacerbation Poses a threat to life or bodily function? How? (Chest pain, USA, CT, pneumonia, PE, COPD, DKA, ARF, appy, cholecystitis, CVA, Diverticulitis, Homicidal, Suicidal, threat to staff... and all critical care pts) @ -Unlikely - Lab Data Result diagrams: 01/16/23 12:43 01/16/23 12:43 Lab Results 01/16/23 01/16/23 01/16/23 Range/Units 12:17 12:43 12:43 WBC 8.8 (3.8-10.6) k/uL RBC 5.09 (3.80-5.40) m/uL Hgb 12.8 (11.4-16.0) gm/dL Hct 39.4 (34.0-46.0) % MCV 77.5 L (80.0-100.0) fL MCH 25.2 (25.0-35.0) pg MCHC 32.6 (31.0-37.0) g/dL RDW 16.2 H (11.5-15.5) % Plt Count 251 (150-450) k/uL MPV 7.6 Neutrophils % 62 % Lymphocytes % 23 % Monocytes % 4 % Eosinophils % 10 % Basophils % 0 % Neutrophils # 5.4 (1.3-7.7) k/uL Lymphocytes # 2.1 (1.0-4.8) k/uL Monocytes # 0.3 (0-1.0) k/uL Eosinophils # 0.9 H (0-0.7) k/uL Basophils # 0.0 (0-0.2) k/uL Hypochromasia Slight Anisocytosis Slight Microcytosis Slight Sodium 140 (137-145) mmol/L Potassium 4.4 (3.5-5.1) mmol/L Chloride 102 (98-107) mmol/L Carbon Dioxide 24 (22-30) mmol/L Anion Gap 14 mmol/L BUN 10 (7-17) mg/dL Creatinine 0.64 (0.52-1.04) mg/dL Est GFR (CKD-EPI)AfAm >90 (>60 ml/min/1.73 sqM) Est GFR (CKD-EPI)NonAf >90 (>60 ml/min/1.73 sqM) Glucose 153 H (74-99) mg/dL Calcium 9.8 (8.4-10.2) mg/dL Influenza Type A (PCR) Not Detected (Not Detectd) Influenza Type B (PCR) Not Detected (Not Detectd) RSV (PCR) Not Detected (Not Detectd) SARS-CoV-2 (PCR) Not Detected (Not Detectd) - EKG Data -: EKG Interpreted by Me EKG Comments: 12-lead Electrocardiogram Interpretation Note EKG was reviewed and interpreted by myself. 12-lead ECG performed at 1206 is interpreted by me as revealing sinus tachycardia at a rate of 105 beats per minute. [place] is normal. [place] interval is 136 ms, QRS duration is 83 ms, QTc is 390 ms.. There were no ST or T wave abnormalities to suggest myocardial ischemia or injury. R wave progression across the precordium was satisfactory. By my interpretation this EKG is non-diagnostic for acute ischemia. Disposition Clinical Impression: Asthma, Tracheobronchitis Disposition: HOME SELF-CARE Condition: Good Instructions (If sedation given, give patient instructions): Asthma (ED) Prescriptions: predniSONE [Deltasone] 40 mg PO DAILY 5 Days #10 tab Albuterol Inhaler [Ventolin Hfa Inhaler] 2 puff INHALATION Q6H PRN #1 each PRN Reason: Dyspnea Azithromycin [Zithromax] 250 mg PO DAILY 4 Days #4 tab Is patient prescribed a controlled substance at d/c from ED?: No Referrals: Trevor Aquino MD [Primary Care Provider] - 1-2 days Time of Disposition: 15:57
== END 2023-01-16 16:26 | disposition home or self-care (01) ==
LOC: EC 11:45
DX: J40 Bronchitis, not specified as acute or chronic (principal); F41.9 Anxiety disorder, unspecified; F31.9 Bipolar disorder, unspecified; Z87.891 Personal history of nicotine dependence; F12.90 Cannabis use, unspecified, uncomplicated; Z79.899 Other long term (current) drug therapy; Z20.822 Contact with and (suspected) exposure to COVID-19
CPT/HCPCS: 36415; 94640 ×2; 93005; 80048; 85025; 87636; 71046; 99285; 96374; 96361 ×6; J2930

== ENCOUNTER 2023-05-05 18:19 | Inpatient (IN) | payer MEDICAID, OTHER ==
--- NOTE | 2023-05-05 18:45 | ED ---
General Adult HPI - General Source: patient <Angelina Hester - Last Filed: 05/05/23 18:39> - History of Present Illness -: week(s) (2) Radiation: non-radiation Consistency: constant Improves with: none Worsens with: none Associated Symptoms: confusion, loss of appetite <Bandar Cowart - Last Filed: 05/05/23 23:35> <Bogdan Gonzalez - Last Filed: 05/06/23 09:35> - General Stated complaint: Mental Health Time Seen by Provider: 05/05/23 18:40 - History of Present Illness Initial comments: 27-year-old female presents to the emergency department for evaluation of suicidal ideation. Patient states that this has been progressively getting worse over the past 2 weeks. She notes that she is off of her medication for around 2 weeks. She does admit to having multiple plans. She states "knives, pills, we have a gun." (Angelina Hester) This is a 19-year-old female to the ER for evaluation of suicidal thoughts. Patient is having increasing suicidal thoughts for 2 weeks as well as plans to kill herself (Bandar Cowart) - Related Data Home Medications Medication Instructions Recorded Confirmed ARIPiprazole [Abilify] 5 mg PO DAILY 06/09/22 06/22/22 Sertraline [Zoloft] 100 mg PO DAILY 06/09/22 06/22/22 Previous Rx's Medication Instructions Recorded Fluticasone Propionate 220 Mcg 2 puff INHALATION RT-BID #12 gm 06/09/22 [Flovent 220 Mcg Inhaler] Azithromycin [Zithromax] 250 mg PO DAILY 4 Days #4 tab 06/22/22 Fluticasone Propionate 110 Mcg 1 puff INHALATION RT-BID #12 gm 06/22/22 [Flovent 110 Mcg Inhaler] predniSONE [Deltasone] 20 mg PO BID 5 Days #10 tab 06/22/22 Albuterol Inhaler [Ventolin Hfa 2 puff INHALATION Q6H PRN #1 unit 07/22/22 Inhaler] Albuterol Nebulized [Ventolin 2.5 mg INHALATION Q4H 8 Days #150 07/22/22 Nebulized] ml Albuterol Inhaler [Ventolin Hfa 1 - 2 puff INHALATION Q6H PRN #1 08/02/22 Inhaler] kit Albuterol Nebulized [Ventolin 5 mg INHALATION Q6H PRN 6 Days #75 08/02/22 Nebulized] ml dexAMETHasone [Decadron] 10 mg PO ONCE #2.5 tab 08/02/22 Albuterol Nebulized [Ventolin 2.5 mg INHALATION Q4H PRN #75 ml 08/06/22 Nebulized] Albuterol Inhaler [Ventolin Hfa 2 puff INHALATION Q6H PRN #1 each 01/16/23 Inhaler] Azithromycin [Zithromax] 250 mg PO DAILY 4 Days #4 tab 01/16/23 predniSONE [Deltasone] 40 mg PO DAILY 5 Days #10 tab 01/16/23 Allergies Allergy/AdvReac Type Severity Reaction Status Date / Time No Known Allergies Allergy Verified 05/06/23 09:30 Review of Systems ROS Other: All systems not noted in ROS Statement are negative. <Angelina Hester - Last Filed: 05/05/23 18:39> ROS Other: All systems not noted in ROS Statement are negative. <Bandar Cowart - Last Filed: 05/05/23 23:35> ROS Other: All systems not noted in ROS Statement are negative. <Bogdan Gonzalez - Last Filed: 05/06/23 09:35> ROS Statement: Those systems with pertinent positive or pertinent negative responses have been documented in the HPI. Past Medical History Past Medical History: Asthma, Seizure Disorder Additional Past Medical History / Comment(s): seizure, pre-COPD History of Any Multi-Drug Resistant Organisms: None Reported Past Surgical History: No Surgical Hx Reported Past Psychological History: Anxiety, Bipolar, Depression Smoking Status: Former smoker Past Alcohol Use History: Occasional Past Drug Use History: Marijuana <Angelina Hester - Last Filed: 05/05/23 18:39> General Exam <Angelina Hester - Last Filed: 05/05/23 18:39> General appearance: alert, in no apparent distress, anxious Head exam: Present: atraumatic, normocephalic, normal inspection Eye exam: Present: normal appearance, PERRL, EOMI. Absent: scleral icterus, conjunctival injection, periorbital swelling ENT exam: Present: normal exam, mucous membranes moist Neck exam: Present: normal inspection. Absent: tenderness, meningismus, lymphadenopathy Respiratory exam: Present: normal lung sounds bilaterally. Absent: respiratory distress, wheezes, rales, rhonchi, stridor Cardiovascular Exam: Present: regular rate, normal rhythm, normal heart sounds. Absent: systolic murmur, diastolic murmur, rubs, gallop, clicks GI/Abdominal exam: Present: soft, normal bowel sounds. Absent: distended, tenderness, guarding, rebound, rigid Extremities exam: Present: normal inspection, full ROM, normal capillary refill. Absent: tenderness, pedal edema, joint swelling, calf tenderness Back exam: Present: normal inspection Neurological exam: Present: alert, oriented X3, CN II-XII intact Psychiatric exam: Present: normal affect, normal mood Skin exam: Present: warm, dry, intact, normal color. Absent: rash <Bandar Cowart - Last Filed: 05/05/23 23:35> - General Exam Comments Initial Comments: Visual Physical Exam Vital signs reviewed General: Well-appearing, nontoxic, no acute distress. Head: Normocephalic, atraumatic Eyes: PERRLA, EOMI ENT: Airway patent Chest: Nonlabored breathing Skin: No visual rash, normal skin tone Neuro: Alert and oriented 3 Musculoskeletal: No gross abnormalities (Angelina Hester) Course <Bandar Cowart - Last Filed: 05/05/23 23:35> Vital Signs 05/05/23 05/06/23 18:35 08:45 Temperature 99.0 F 98.0 F Pulse Rate 89 86 Respiratory 18 18 Rate Blood Pressure 140/103 130/80 O2 Sat by Pulse 97 99 Oximetry - Reevaluation(s) Reevaluation #1: 05/05/23 23:36 Medical records reviewed (Bandar Cowart) Reevaluation #2: 05/05/23 23:36 Medically cleared for psychiatric evaluation (Bandar Cowart) Medical Decision Making <Angelina Hester - Last Filed: 05/05/23 18:39> <Bogdan Gonzalez - Last Filed: 05/06/23 09:35> - Medical Decision Making Quick note preformed and electronically signed by Angelina Hester PA-C (Angelina Hester) Was pt. sent in by a medical professional or institution (JUAN ANTONIO Kamara, ACCOUNT ENGINEER, urgent care, hospital, or care home...) When possible be specific @ -No Did you speak to anyone other than the patient for history (EMS, parent, family, police, friend...)? What history was obtained from this source @ -No Did you review nursing and triage notes (agree or disagree)? Why? @ -I reviewed and agree with nursing and triage notes Were old charts reviewed (outside hosp., previous admission, EMS record, old EKG, old radiological studies, urgent care reports/EKG's, care home records)? Report findings @ -No old charts were reviewed Differential Diagnosis (chest pain, altered mental status, abdominal pain women, abdominal pain men, vaginal bleeding, weakness, fever, dyspnea, syncope, headache, dizziness, GI bleed, back pain, seizure, CVA, palpatations, mental health, musculoskeletal)? @ -Differential Mental Health Depression, anxiety, bipolar, psychosis, schizophrenia, borderline personality, situational depression, adjustment disorder, behavioral disorder, brain tumor, malingering, substance abuse, encephalopathy, medication reaction, dementia, hypothyroidism, degenerative neurologic disorder, lupus.... This is not meant to be all-inclusive list EKG interpreted by me (3pts min.). @ -As above X-rays interpreted by me (1pt min.). @ -None done CT interpreted by me (1pt min.). @ -None done U/S interpreted by me (1pt. min.). @ -None done What testing was considered but not performed or refused? (CT, X-rays, U/S, labs)? Why? @ -None What meds were considered but not given or refused? Why? @ -None Did you discuss the management of the patient with other professionals (professionals i.e. JUAN ANTONIO Kamara, ACCOUNT ENGINEER, lab, RT, psych nurse, social science research assistant, mechanical integrity engineer, teacher, special technical operations officer, director case management)? Give summary @ -I did speak with psychiatric nurse with plans for mental health admission. Patient will sign herself in. Was smoking cessation discussed for >3mins.? @ -No Was critical care preformed (if so, how long)? @ -No Were there social determinants of health that impacted care today? How? (Homel essness, low income, unemployed, alcoholism, drug addiction, transportation, low edu. Level, literacy, decrease access to med. care, [facility], rehab)? @ -No Was there de-escalation of care discussed even if they declined (Discuss DNR or withdrawal of care, Hospice)? DNR status @ -No What co-morbidities impacted this encounter? (DM, HTN, Smoking, COPD, CAD, Cancer, CVA, ARF, Chemo, Hep., AIDS, mental health diagnosis, sleep apnea, morbid obesity)? @ -None Was patient admitted / discharged? Hospital course, mention meds given and route, prescriptions, significant lab abnormalities, going to OR and other pertinent info. @ -Patient seen by mental health with concern ferns for depression and suicidal ideation. Patient will be admitted for mental health problems to the psychiatric Undiagnosed new problem with uncertain prognosis? @ -No Drug Therapy requiring intensive monitoring for toxicity (Heparin, Nitro, Insulin, Cardizem)? @ -No Were any procedures done? @ -No Diagnosis/symptom? @ -Depression Acute, or Chronic, or Acute on Chronic? @ -Acute Uncomplicated (without systemic symptoms) or Complicated (systemic symptoms)? @ -Default Side effects of treatment? @ -No Exacerbation, Progression, or Severe Exacerbation? @ -No Poses a threat to life or bodily function? How? (Chest pain, [place], [place], pneumonia, PE, COPD, DKA, ARF, appy, cholecystitis, CVA, Diverticulitis, Homicidal, Saldivar icidal, threat to staff... and all critical care pts) @ -No (Bogdan Gonzalez) - Lab Data Lab Results 05/05/23 05/05/23 Range/Units 23:46 23:46 Urine Color Yellow Urine Appearance Cloudy H (Clear) Urine pH 6.0 (5.0-8.0) Ur Specific Satin 1.036 H (1.001-1.035) Urine Protein 1+ H (Negative) Urine Glucose (UA) Negative (Negative) Urine Ketones Negative (Negative) Urine Blood Moderate H (Negative) Urine Nitrite Negative (Negative) Urine Bilirubin Negative (Negative) Urine Urobilinogen 2.0 (<2.0) mg/dL Ur Leukocyte Esterase Large H (Negative) Urine RBC 37 H (0-5) /hpf Urine WBC 70 H (0-5) /hpf Ur Squamous Epith Cells 21 H (0-4) /hpf Calcium Oxalate Crystal Few H (None) /hpf Urine Bacteria Rare H (None) /hpf Hyaline Casts 2 (0-2) /lpf Urine Mucus Many H (None) /hpf Urine HCG, Qual Not Detected (Not Detectd) Urine Opiates Screen Not Detected (NotDetected) Ur Oxycodone Screen Not Detected (NotDetected) Urine Methadone Screen Not Detected (NotDetected) Ur Barbiturates Screen Not Detected (NotDetected) U Tricyclic Antidepress Not Detected (NotDetected) Ur Phencyclidine Scrn Not Detected (NotDetected) Ur Amphetamines Screen Not Detected (NotDetected) U Methamphetamines Scrn Not Detected (NotDetected) U Benzodiazepines Scrn Not Detected (NotDetected) Urine Cocaine Screen Not Detected (NotDetected) U Marijuana (THC) Screen Detected H (NotDetected) Disposition <Angelina Hester - Last Filed: 05/05/23 18:39> <Bandar Cowart - Last Filed: 05/05/23 23:35> Is patient prescribed a controlled substance at d/c from ED?: No Time of Disposition: 09:35 <Bogdan Gonzalez - Last Filed: 05/06/23 09:35> Clinical Impression: Depression Disposition: TRANSFER TO PSYCH HOSP/UNIT Referrals: Oly Fields MD [Primary Care Provider] - 1-2 days
[2023-05-06 00:39] LABS: Appearance,Urine Cloudy (Clear); Bacteria,Urine Rare /hpf; Bilirubin,Urine Negative (Negative); Blood,Urine Moderate (Negative); Calcium Oxalate Crystals,Urine Few /hpf; Color,Urine Yellow; Glucose,Urine (UA) Negative (Negative); Hyaline Casts,Urine 2 /lpf (0-2); Ketones,Urine Negative (Negative); Leukocyte Esterase,Urine Large (Negative); Mucus,Urine Many /hpf; Nitrite,Urine Negative (Negative); Protein,Urine 1+ (Negative); RBC,Urine 37 /hpf (0-5); Specific Gravity,Urine 1.036 (1.001-1.035); Squamous Epithelial Cell,Urine 21 /hpf (0-4); WBC,Urine 70 /hpf (0-5)
[2023-05-06 00:52] LABS: Amphetamine Screen,Urine Not Detected (NotDetected); Barbiturate Screen,Urine Not Detected (NotDetected); Benzodiazepines Screen,Urine Not Detected (NotDetected); Cocaine Screen,Urine Not Detected (NotDetected); Methadone Screen, Urine Not Detected (NotDetected); Opiate Screen,Urine Not Detected (NotDetected); Oxycodone Screen, Urine Not Detected (NotDetected); Phencyclidine Screen,Urine Not Detected (NotDetected); Tricyclic Antidepressant,Urine Not Detected (NotDetected); Urn Cannabinoid Scrn Detected (NotDetected)
[2023-05-06] MEDS: ACETAMINOPHEN TAB 500 MG TAB PO STA (08:44)
[2023-05-06 10:01] LABS: Basophils % (A) 0 %; Eosinophils # (A) 0.4 k/uL (0-0.7); Eosinophils % (A) 4 %; HCT 34.5 % (34.0-46.0); HGB 11.2 gm/dL (11.4-16.0); Lymphocytes # (A) 2.7 k/uL (1.0-4.8); Lymphocytes % (A) 29 %; MCH 25.8 pg (25.0-35.0); MCHC 32.6 g/dL (31.0-37.0); MCV 79.3 fL (80.0-100.0); Mean Platelet Volume 7.8; Monocytes # (A) 0.4 k/uL (0-1.0); Monocytes % (A) 4 %; Neutrophils # (A) 5.8 k/uL (1.3-7.7); Neutrophils % (A) 61 %; Platelet Count 287 k/uL (150-450); RBC 4.35 m/uL (3.80-5.40); RDW 15.1 % (11.5-15.5); WBC 9.4 k/uL (3.8-10.6)
[2023-05-06 10:18] LABS: ALT 53 U/L (4-34); AST 37 U/L (14-36); African American GFR (CKD) >90 (>60 ml/min/1.73 sqM); Albumin 3.4 g/dL (3.5-5.0); Alkaline Phosphatase 62 U/L (38-126); Anion Gap 7 mmol/L; Blood Urea Nitrogen 13 mg/dL (7-17); Carbon Dioxide 22 mmol/L (22-30); Chloride 108 mmol/L (98-107); Glucose 167 mg/dL (74-99); Non-African American GFR(CKD) >90 (>60 ml/min/1.73 sqM); Potassium 4.3 mmol/L (3.5-5.1); Sodium 137 mmol/L (137-145); Total Bilirubin 0.6 mg/dL (0.2-1.3); Total Protein 6.8 g/dL (6.3-8.2)
[2023-05-06] MEDS ORDERED: MAGNESIUM HYDROXIDE 2,400 MG/30 ML CUP PO PRN (11:06)
[2023-05-06] MEDS ORDERED: MAG HYDROX/AL HYDROX/SIMETH 355 ML BOTTLE PO PRN (11:06)
[2023-05-06] MEDS ORDERED: ALBUTEROL INHALER 60 PUFF/8 GM INHALER (MHU) INHALATION PRN ×2 (11:06→11:19)
[2023-05-06] MEDS ORDERED: IPRATROPIUM-ALBUTEROL 3 ML NEB INHALATION PRN (11:06)
[2023-05-06] MEDS ORDERED: haloperidoL 5 MG TAB PO PRN (11:06)
[2023-05-06] MEDS ORDERED: HALOPERIDOL LACTATE 5 MG/ML 1 ML VIAL IM PRN (11:06)
[2023-05-06] MEDS ORDERED: LORazepam 2 MG/ML INJ IM PRN (11:12)
[2023-05-06] MEDS: MONTELUKAST 10 MG TAB PO SCH (12:12)
[2023-05-06] MEDS: IBUPROFEN 600 MG TAB PO PRN (17:40)
[2023-05-06] MEDS: FLUTICASONE 110 MCG INHALER (MHU) INHALATION SCH (21:55)
[2023-05-07] MEDS: NICOTINE 14MG/24HR PATCH TRANSDERM SCH (08:31)
[2023-05-07 13:36] LABS: Chol/HDL Ratio 5.13 Ratio; LDL Cholesterol,Calculated 84.5 mg/dL (0.0-131.0)
[2023-05-07] MEDS ORDERED: DEXTROSE 50% SYRINGE 50 ML IVP PRN ×2 (14:15)
--- NOTE | 2023-05-07 14:16 | P.MDCNMH ---
History of Present Illness H&P Date: 05/07/23 Chief Complaint: Suicidal ideation, depression * 27-year-old female with past medical history significant for history of asthma, history of seizure disorder, bipolar, anxiety, depression presents to the emergency department with complaints of suicidal ideation which has been progressively getting worse over the past 2 weeks. Patient states she has a plan to hurt herself with either knife or overdosing on pills or using a gun. Patient. Patient states she has been off her medications for approximately 2 weeks * Review of blood work in ER included CBC which showed WBC of 9.4 hemoglobin 11.2 platelet count of 287 * Serum chemistry obtained showed sodium 137 potassium 4.3, dioxide 22 BUN 13 creatinine 0.64 TSH of 1.6 * Urine test negative * Patient had urinalysis done which showed cloudy urine, positive for leukocyte esterase WBC, urine bacteria, excessive squamous epithelial cells. Sample seems to be contaminated a repeat sample requested * Patient admitted to behavioral health unit for further management and maximum safety precautions REVIEW OF SYSTEMS: Depressed mood, suicidal ideation CONSTITUTIONAL: No fever, no malaise, no fatigue. HEENT: No recent visual problems or hearing problems. Denied any sore throat. CARDIOVASCULAR: No chest pain, orthopnea, PND, no palpitations, no syncope. PULMONARY: No shortness of breath, no cough, no hemoptysis. GASTROINTESTINAL: No diarrhea, no nausea, no vomiting, no abdominal pain. NEUROLOGICAL: No headaches, no weakness, no numbness. HEMATOLOGICAL: Denies any bleeding or petechiae. GENITOURINARY: Denies any burning micturition, frequency, or urgency. MUSCULOSKELETAL/RHEUMATOLOGICAL: Denies any joint pain, swelling, or any muscle pain. ENDOCRINE: Denies any polyuria or polydipsia. PHYSICAL EXAMINATION: GENERAL: The patient is alert and oriented x3, morbid obesity HEENT: Pupils are round and equally reacting to light. EOMI. No scleral icterus. CARDIOVASCULAR: S1 and S2 present. No murmurs, rubs, or gallops. PULMONARY: Chest is clear to auscultation, no wheezing or crackles. ABDOMEN: Soft, nontender, nondistended, normoactive bowel sounds. No palpable organomegaly. MUSCULOSKELETAL: No joint swelling or deformity. EXTREMITIES: No cyanosis, clubbing, or pedal edema. NEUROLOGICAL: Gross neurological examination did not reveal any focal deficits. SKIN: No rashes. Past Medical History Past Medical History: Asthma, Seizure Disorder Additional Past Medical History / Comment(s): seizure, pre-COPD History of Any Multi-Drug Resistant Organisms: None Reported Past Surgical History: No Surgical Hx Reported Past Anesthesia/Blood Transfusion Reactions: No Reported Reaction Past Psychological History: Anxiety, Bipolar, Depression Smoking Status: Never smoker Past Alcohol Use History: Occasional Past Drug Use History: Marijuana Medications and Allergies Home Medications Medication Instructions Recorded Confirmed Type Albuterol Inhaler [Ventolin Hfa 2 puff INHALATION RT-Q6H PRN 05/06/23 05/06/23 History Inhaler] Fluticasone Propionate 110 Mcg 2 puff INHALATION RT-BID 05/06/23 05/06/23 History [Flovent 110 Mcg Inhaler] Ipratropium-Albuterol Nebulize 3 ml INHALATION RT-QID PRN 05/06/23 05/06/23 History [Duoneb 0.5 mg-3 mg/3 ml Soln] Montelukast [Singulair] 10 mg PO DAILY 05/06/23 05/06/23 History Allergies Allergy/AdvReac Type Severity Reaction Status Date / Time No Known Allergies Allergy Verified 05/06/23 09:30 Physical Exam Vitals: Vital Signs Temp Pulse Resp BP Pulse Ox 05/07/23 06:44 94 138/90 05/06/23 11:54 97.9 F 75 20 123/75 99 Cranial Nerve Examination - Cranial Nerves Cranial Nerve II- Optic: Intact Cranial Nerve III- Oculomotor: Intact Cranial Nerve IV- Trochlear: Intact Cranial Nerve V- Trigeminal: Intact Cranial Nerve - Abducens: Intact Cranial Nerve VII- Facial: Intact Cranial Nerve VIII- Auditory: Intact Cranial Nerve IX- Glossopharyngeal: Intact Cranial Nerve X- Vagus: Intact Cranial Nerve XI- Accessory: Intact Cranial Nerve XII- Hypoglossal: Intact Results CBC & Chem 7: 05/06/23 09:32 05/06/23 09:32 Labs: Abnormal Lab Results - Last 24 Hours (Table) 05/06/23 05/06/23 Range/Units 09:32 09:32 Hgb 11.2 L (11.4-16.0) gm/dL MCV 79.3 L (80.0-100.0) fL Chloride 108 H (98-107) mmol/L Glucose 167 H (74-99) mg/dL AST 37 H (14-36) U/L ALT 53 H (4-34) U/L Albumin 3.4 L (3.5-5.0) g/dL Assessment and Plan Assessment: Assessment and plan * History of depression with suicidal ideation * History of asthma not in exacerbation * Diabetes mellitus type 2 new onset * Mild transaminitis * In regards to history of depression, suicidal ideation continue to obtain maximum safety precautions while inpatient management per psychiatry * Regards to history of asthma continue albuterol and Singulair, continue to monitor for exacerbation as needed breathing treatment * Regards to mild transaminitis follow-up on comprehensive metabolic panel and liver profile trending up will need ultrasound right upper quadrant * Regards to diabetes Accu-Cheks ACHS correctional insulin ordered patient started on metformin, will need outpatient endocrinology follow-up * Status is full code
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
[2023-05-07] MEDS: metFORMIN 500 MG TAB PO SCH (17:33)
[2023-05-07] MEDS: FLUoxetine HCL 20 MG CAP PO SCH (17:33)
[2023-05-07] MEDS: ARIPiprazole 5 MG TAB PO SCH (17:33)
[2023-05-07 17:39] LABS: Glucose,Whole Blood 102 mg/dL (70-110)
[2023-05-07] MEDS: INSULIN ASPART (NovoLOG) 100 UNIT/ML VIAL SQ SCH (17:39)
[2023-05-07 20:05] LABS: Glucose,Whole Blood 147 mg/dL (70-110)
[2023-05-07 22:03] LABS: Appearance,Urine Clear (Clear); Bacteria,Urine Rare /hpf; Bilirubin,Urine Negative (Negative); Blood,Urine Small (Negative); Color,Urine Yellow; Glucose,Urine (UA) Negative (Negative); Ketones,Urine Negative (Negative); Leukocyte Esterase,Urine Large (Negative); Mucus,Urine Occasional /hpf; Nitrite,Urine Negative (Negative); PH, Urine 5.5 (5.0-8.0); Protein,Urine Negative (Negative); RBC,Urine 2 /hpf (0-5); Specific Gravity,Urine 1.017 (1.001-1.035); Squamous Epithelial Cell,Urine 3 /hpf (0-4); WBC,Urine 15 /hpf (0-5)
[2023-05-08 07:09] LABS: ALT 62 U/L (4-34); AST 49 U/L (14-36); African American GFR (CKD) >90 (>60 ml/min/1.73 sqM); Albumin 3.2 g/dL (3.5-5.0); Alkaline Phosphatase 52 U/L (38-126); Anion Gap 7 mmol/L; Blood Urea Nitrogen 10 mg/dL (7-17); Calcium 8.8 mg/dL (8.4-10.2); Carbon Dioxide 26 mmol/L (22-30); Chloride 108 mmol/L (98-107); Glucose 102 mg/dL (74-99); Non-African American GFR(CKD) >90 (>60 ml/min/1.73 sqM); Potassium 4.2 mmol/L (3.5-5.1); Sodium 141 mmol/L (137-145); Total Bilirubin 0.5 mg/dL (0.2-1.3); Total Protein 6.5 g/dL (6.3-8.2)
[2023-05-08 07:51] LABS: Glucose,Whole Blood 101 mg/dL (70-110)
[2023-05-08 12:36] LABS: Glucose,Whole Blood 99 mg/dL (70-110)
[2023-05-08 17:33] LABS: Glucose,Whole Blood 95 mg/dL (70-110)
--- NOTE | 2023-05-08 18:04 | P.PN ---
Progress Note - Text Progress Note Date: 05/08/23 Interval history: Patient was seen resting in bed with lights off and was directable and agreeable to speak with database report writer. She reports feeling a better since starting her medications. At this time patient denies any suicidal or homicidal ideations intent or plan. Denies any auditory or visual hallucinations. She reports till feeling a bit stressed about her home life. Patient denies any side effects from the medications and has been compliant with meds. Mental status exam: General Appearance: Patient appears to be stated age, obese, fair hygiene and grooming; hair tinted blue. Behavior: Patient is sits up in bed, calm without any agitated behavior. Speech: Patient's speech is fluent and non-pressured. Mood/Affect: Patient reports their mood is a bit better today, affect is congruent and constricted. Suicidality/Homicidality: Patient denies having any suicidal or homicidal ideation intent or plan. Perceptions: Patient denies any visual hallucinations and denies any auditory hallucinations. Though content/process: There is no evidence of any delusional thought content and thought process is linear and goal-directed. Memory and concentration: AOX3, grossly intact for the purposes of this session. Judgment and insight: improving mildly Assessment/Plan: Continue with current diagnosis. Patient continues to meet criteria for inpatient psychiatric admission for symptom stabilization and safety. Patient will be maintained on current psychotropic medication regimen. Monitor for medication compliance and for any psychotropic medication side effects. Will continue to monitor ongoing response to treatment. Encouraged participation in milieu.
[2023-05-08 20:08] LABS: Glucose,Whole Blood 108 mg/dL (70-110)
[2023-05-09 07:51] LABS: Glucose,Whole Blood 121 mg/dL (70-110)
--- NOTE | 2023-05-09 12:01 | P.PN ---
Progress Note - Text Progress Note Date: 05/09/23 Interval History: Patient was seen wandering the hallways and was directable and agreeable to ehsan gil with keno writer / runner in the office. Today, the patient states that her states that her told her employer why she was hospitalized, so she's unsure if she will have a job upon discharge. Marketing Intelligence Manager told patient the she would receive a letter to return to work upon discharge. Patient states she does not want the job no longer. She states that she always has suicidal thoughts, for years, and has been off her medications for the past three months. She states that her depression is mildly improving, although it is still there. She has been sleeping well on the unit, at least 5-6 hours. Her appetite is good. Patient offers no other complaints. At this time patient denies any suicidal or homicidal ideations, intent or plan. Patient denies any auditory, visual hallucinations and denies any paranoia or delusions. Patient denies any side effects from the medications and has been compliant with meds. Patient has been going to groups and participating a best as she can. MENTAL STATUS EXAM: General Appearance: Patient appears to be stated age is alert, directable, and attempts to cooperate. Patient appears to have fair hygiene and grooming; hair tinted blue. Behavior: Patient is seated without any agitated behavior. Speech: Patient's speech is fluent and non-pressured. Both at times. Mood/Affect: Patient reports their mood is depressed, affect is congruent and constricted. Suicidality/Homicidality: Patient denies having any homicidal ideation intent or plan. She reports suicidal ideation, without plan. Perceptions: Patient denies any visual hallucinations and denies any auditory hallucinations. Though content/process: There is no evidence of any delusional thought content and thought process is linear and goal-directed. Memory and concentration: AOX3, grossly intact for the purposes of this session. Judgment and insight: poor, improving mildly IMPRESSIONS: Major depressive disorder, recurrent without psychotic features Anxiety disorder, unspecified r/o Generalized anxiety disorder Post-traumatic stress disorder Borderline personality disorder, by history Alcohol use disorder, in full sustained remission Opioid use disorder, in full sustained remission Cocaine use disorder, in full sustained remission PLAN: -Patient is admitted under voluntary status to [facility] for stabilization of psychiatric symptoms and safety. Patient has signed adult voluntary form and medication consent and is placed in patient's chart. -Medications: Abilify 5 mg daily for mood stabilization. increase Prozac 30mg daily for depression/anxiety. -Ativan and Haldol PRN for agitation/aggression -SW on board for discharge planning. Encourage patient to participate in groups to work on coping skills. -She would benefit from DBT and trauma-focused therapy following discharge. [facility] discharge Tuesday- if patient improves psychiatrically
[2023-05-09] MEDS: FLUoxetine HCL 10 MG CAP PO STA (12:02)
[2023-05-09 12:39] LABS: Glucose,Whole Blood 109 mg/dL (70-110)
[2023-05-09 17:40] LABS: Glucose,Whole Blood 81 mg/dL (70-110)
[2023-05-09 20:03] LABS: Glucose,Whole Blood 124 mg/dL (70-110)
[2023-05-09] MEDS: LORazepam 1 MG TAB PO PRN (20:33)
[2023-05-10 06:40] VITALS: TEMP 98
[2023-05-10 07:32] LABS: Glucose,Whole Blood 99 mg/dL (70-110)
[2023-05-10] MEDS: FLUoxetine HCL 10 MG CAP PO SCH (07:44)
[2023-05-10] MEDS ORDERED: hydrOXYzine pamoate 25 MG CAP PO PRN (10:17)
--- NOTE | 2023-05-10 11:14 | P.PN ---
Progress Note - Text Progress Note Date: 05/10/23 Interval History: Patient was seen wandering the hallways and was directable and agreeable to ehsan gil with principal technical writer in the office. Today, she claims that is doing pretty good. She spoke to her this morning, and he got the children off to school this morning, so she was happy about that. She states that her depression is improving. She states that last night she had to take an ativan because at dinner time, she got some anxiety out of no where, spoke to patient about adding visteral, patient agreeable. She has been sleeping well on the unit, at least 5- 6 hours. Her appetite is good. Patient offers no other complaints. At this time patient denies any suicidal or homicidal ideations, intent or plan. Patient denies any auditory, visual hallucinations and denies any paranoia or delusions. Patient denies any side effects from the medications and has been compliant with meds. Patient has been going to groups and participating a best as she can. MENTAL STATUS EXAM: General Appearance: Patient appears to be stated age is alert, directable, and attempts to cooperate. Patient appears to have fair hygiene and grooming; hair tinted blue. Behavior: Patient is seated without any agitated behavior. Speech: Patient's speech is fluent and non-pressured. Mood/Affect: Patient reports their mood is good, affect is congruent and constricted. Improving mildly Suicidality/Homicidality: Patient denies having any homicidal ideation intent or plan. She reports suicidal ideation, without plan. Perceptions: Patient denies any visual hallucinations and denies any auditory hallucinations. Though content/process: There is no evidence of any delusional thought content and thought process is linear and goal-directed. Memory and concentration: AOX3, grossly intact for the purposes of this session. Judgment and insight: improving IMPRESSIONS: Major depressive disorder, recurrent without psychotic features Anxiety disorder, unspecified r/o Generalized anxiety disorder Post-traumatic stress disorder Borderline personality disorder, by history Alcohol use disorder, in full sustained remission Opioid use disorder, in full sustained remission Cocaine use disorder, in full sustained remission PLAN: -Patient is admitted under voluntary status to [facility] for stabilization of psychi atric symptoms and safety. Patient has signed adult voluntary form and medication consent and is placed in patient's chart. -Medications: Abilify 5 mg daily for mood stabilization. Increase Prozac 40mg daily for depression/anxiety. Add Visteral 25mg prn [id number] for anxiety -Ativan and Haldol PRN for agitation/aggression -SW on board for discharge planning. Encourage patient to participate in groups to work on coping skills. -She would benefit from DBT and trauma-focused therapy following discharge. likely discharge Tuesday if patient improves psychiatrically
[2023-05-10 12:38] LABS: Glucose,Whole Blood 97 mg/dL (70-110)
[2023-05-10 17:50] LABS: Glucose,Whole Blood 115 mg/dL (70-110)
[2023-05-10 20:06] LABS: Glucose,Whole Blood 97 mg/dL (70-110)
[2023-05-11 07:06] VITALS: BP 129/86; PULSE 89; RESP 16
[2023-05-11 07:41] LABS: Glucose,Whole Blood 100 mg/dL (70-110)
[2023-05-11] MEDS: FLUoxetine HCL 20 MG CAP PO SCH (07:42)
--- NOTE | 2023-05-11 11:22 | P.DS ---
Providers Date of admission: 05/06/23 11:04 Expected date of discharge: 05/11/23 Attending physician: Miah Manzo MD Consults: 05/06/23 11:06 Consult Physician Routine Consulting Provider: Liz Kwon Consult Reason/Comments: H and P Do you want consulting provider notified?: Yes Primary care physician: Oly Fields - Discharge Diagnosis(es) (1) Borderline personality disorder Current Visit: Yes Status: Acute Priority: High (2) Alcohol use disorder, mild, in sustained remission Current Visit: Yes Status: Acute Priority: Medium (3) Opioid use disorder, mild, in sustained remission Current Visit: Yes Status: Acute Priority: Medium (4) Cocaine use disorder, moderate, in sustained remission Current Visit: Yes Status: Acute Priority: Medium (5) Anxiety disorder Current Visit: Yes Status: Acute Priority: High (6) Major depressive disorder without psychotic features Current Visit: Yes Status: Acute Priority: High (7) PTSD (post-traumatic stress disorder) Current Visit: Yes Status: Acute Priority: Medium Hospital Course: Admission HPI: Admission note was completed by Dr Henry "Patient presented to the hospital " 27-year-old female presents to the emergency department for evaluation of suicidal ideation. Patient states that this has been progressively getting worse over the past 2 weeks. She notes that she is off of her medication for around 2 weeks. She does admit to having multiple plans. She states "knives, pills, we have a gun." This is a 19-year-old female to the ER for evaluation of suicidal thoughts. Patient is having increasing suicidal thoughts for 2 weeks as well as plans to kill herself." 27-year-old female with past medical history significant for history of asthma, history of seizure disorder, bipolar, anxiety, depression presents to the emergency department with complaints of suicidal ideation which has been progressively getting worse over the past 2 weeks. Patient states she has a plan to hurt herself with either knife or overdosing on pills or using a gun. Patient. Patient states she has been off her medications for approximately 2 weeks." Hospital course: Upon admission to the unit patient was directable and agreeable to commence treatment and signed adult voluntary form. Patient got along well with other patients on the unit and followed unit protocol. Patient was compliant with the medications and denied any side effects throughout hospital course. Patient was started on Abilify 5 mg daily for mood stabilization/mood adjunct, Prozac increased to dose of 40 mg daily for depression/anxiety, Vistaril as needed for anxiety. Patient spoke of her stressors and engaged in therapy both group and individual. Patient was also seen by medical team for history and physical exam. Throughout the course of the hospitalization patient gradually improved with regards to mood, anxiety, mood lability, sleep and became more future oriented with improved insight and judgment. On the day of discharge patient denied any suicidal or homicidal ideations intent or plan denied any auditory or visual hallucinations. Patient endorsed wanting to live for her health and her family. The patient denied any access to guns or weapons. Patient denied any paranoia and did not endorse any delusions. Patient does have a significant history of substance abuse and was counseled on abstaining from all substances including alcohol and marijuana. Patient elected to do outpatient substance use treatment program through [facility]. Patient was also counseled on the medications and need for regular compliance and was encouraged to follow-up with their outpatient appointment for mental health and also for primary care. Prior to discharge a family meeting will be arranged by social media content manager to answer any questions and ensure safety upon discharge. Mental status exam: General Appearance: Patient appears to be overweight, stated age is alert, pleasant, and cooperative. Patient is in no acute distress and has improved hygiene and grooming Behavior: Patient is calmly seated without any agitated behavior. Speech: Patient's speech is fluent and nonpressured. Mood/Affect: Patient reports their mood is "better", affect is congruent and euthymic. Suicidality/Homicidality: Patient denies having any suicidal or homicidal ideation intent or plan. Perceptions: Patient denies any auditory or visual hallucinations. Though content/process: There is no evidence of any delusional thought content and thought process is linear and goal-directed. More future oriented Memory and concentration: AOX3, grossly intact for the purposes of this session. Can spell "WORLD" backwards correctly. Judgment and insight: improved with guarded prognosis Impression: Major depressive disorder, recurrent without psychotic features Anxiety disorder, unspecified r/o Generalized anxiety disorder Post-traumatic stress disorder Borderline personality disorder, by history Alcohol use disorder, in full sustained remission Opioid use disorder, in full sustained remission Cocaine use disorder, in full sustained remission Plan: -Continue with discharge today as patient has improved and stabilized psychiatrically and is not currently an imminent threat to herself and/or others. Patient will remain at chronically elevated risk for harm to self and/or others due to her impulsivity. -Continue medications: Abilify 5 mg daily for mood stabilization/adjunct, Prozac 40 mg daily for depression/anxiety. -Patient was counseled on the need for medication compliance and appropriate follow-up at mental health and also primary care for medical issues. Patient verbalized understanding and agreed. -Social work to arrange for and conduct family meeting to ensure safety upon discharge and answer any questions/concerns. Social work also to arrange for patients follow up appointments with [facility] for psychiatric care along with follow up with primary care provider. -Patient counseled on abstaining from recreational drugs and marijuana and alcohol. Was informed/educated on the adverse effects on their physical and mental health. Patient verbally agreed and understood. -Patient was instructed to return to the hospital or seek immediate medical care if their psychiatric or medical symptoms do worsen or reoccur. Allergies Allergy/AdvReac Type Severity Reaction Status Date / Time No Known Allergies Allergy Verified 05/06/23 09:30 Laboratory Results WBC 9.4 k/uL (3.8-10.6) 05/06/23 09:32 RBC 4.35 m/uL (3.80-5.40) 05/06/23 09:32 Hgb 11.2 gm/dL (11.4-16.0) L 05/06/23 09:32 Hct 34.5 % (34.0-46.0) 05/06/23 09:32 MCV 79.3 fL (80.0-100.0) L 05/06/23 09:32 MCH 25.8 pg (25.0-35.0) 05/06/23 09:32 MCHC 32.6 g/dL (31.0-37.0) 05/06/23 09:32 RDW 15.1 % (11.5-15.5) 05/06/23 09:32 Plt Count 287 k/uL (150-450) 05/06/23 09:32 MPV 7.8 05/06/23 09:32 Neutrophils % 61 % 05/06/23 09:32 Lymphocytes % 29 % 05/06/23 09:32 Monocytes % 4 % 05/06/23 09:32 Eosinophils % 4 % 05/06/23 09:32 Basophils % 0 % 05/06/23 09:32 Neutrophils # 5.8 k/uL (1.3-7.7) 05/06/23 09:32 Lymphocytes # 2.7 k/uL (1.0-4.8) 05/06/23 09:32 Monocytes # 0.4 k/uL (0-1.0) 05/06/23 09:32 Eosinophils # 0.4 k/uL (0-0.7) 05/06/23 09:32 Basophils # 0.0 k/uL (0-0.2) 05/06/23 09:32 Sodium 141 mmol/L (137-145) 05/08/23 06:43 Potassium 4.2 mmol/L (3.5-5.1) 05/08/23 06:43 Chloride 108 mmol/L (98-107) H 05/08/23 06:43 Carbon Dioxide 26 mmol/L (22-30) 05/08/23 06:43 Anion Gap 7 mmol/L 05/08/23 06:43 BUN 10 mg/dL (7-17) 05/08/23 06:43 Creatinine 0.66 mg/dL (0.52-1.04) 05/08/23 06:43 Est GFR (CKD-EPI)AfAm >90 (>60 ml/min/1.73 sqM) 05/08/23 06:43 Est GFR (CKD-EPI)NonAf >90 (>60 ml/min/1.73 sqM) 05/08/23 06:43 Glucose 102 mg/dL (74-99) H 05/08/23 06:43 POC Glucose (mg/dL) 100 mg/dL (70-110) 05/11/23 07:39 POC Glu Technician'S Helper TOYIN Keiry Cain 05/11/23 07:[address] Glu mg/dL 154 mg/dL 05/08/23 06:43 Hemoglobin A1c 7.0 % (<=6.0) H 05/08/23 06:43 Calcium 8.8 mg/dL (8.4-10.2) 05/08/23 06:43 Total Bilirubin 0.5 mg/dL (0.2-1.3) 05/08/23 06:43 AST 49 U/L (14-36) H 05/08/23 06:43 ALT 62 U/L (4-34) H 05/08/23 06:43 Alkaline Phosphatase 52 U/L (38-126) 05/08/23 06:43 Total Protein 6.5 g/dL (6.3-8.2) 05/08/23 06:43 Albumin 3.2 g/dL (3.5-5.0) L 05/08/23 06:43 Triglycerides 129.00 mg/dL (0.00-149.00) 05/07/23 06:22 Cholesterol 137.00 mg/dL (0.00-200.00) 05/07/23 06:22 LDL Cholesterol, Calc 84.5 mg/dL (0.0-131.0) 05/07/23 06:22 VLDL Cholesterol, Calc 25.80 mg/dL (5.00-40.00) 05/07/23 06:22 HDL Cholesterol 26.70 mg/dL (40.00-60.00) L 05/07/23 06:22 Cholesterol/HDL Ratio 5.13 Ratio 05/07/23 06:22 TSH 1.650 mIU/L (0.465-4.680) 05/07/23 06:22 Urine Color Yellow 05/07/23 20:44 Urine Appearance Clear (Clear) 05/07/23 20:44 Urine pH 5.5 (5.0-8.0) 05/07/23 20:44 Ur Specific Corn 1.017 (1.001-1.035) 05/07/23 20:44 Urine Protein Negative (Negative) 05/07/23 20:44 Urine Glucose (UA) Negative (Negative) 05/07/23 20:44 Urine Ketones Negative (Negative) 05/07/23 20:44 Urine Blood Small (Negative) H 05/07/23 20:44 Urine Nitrite Negative (Negative) 05/07/23 20:44 Urine Bilirubin Negative (Negative) 05/07/23 20:44 Urine Urobilinogen 2.0 mg/dL (<2.0) 05/07/23 20:44 Ur Leukocyte Esterase Large (Negative) H 05/07/23 20:44 Urine RBC 2 /hpf (0-5) 05/07/23 20:44 Urine WBC 15 /hpf (0-5) H 05/07/23 20:44 Ur Squamous Epith Cells 3 /hpf (0-4) 05/07/23 20:44 Calcium Oxalate Crystal Few /hpf (None) H 05/05/23 23:46 Urine Bacteria Rare /hpf (None) H 05/07/23 20:44 Hyaline Casts 2 /lpf (0-2) 05/05/23 23:46 Urine Mucus Occasional /hpf (None) H 05/07/23 20:44 Urine HCG, Qual Not Detected (Not Detectd) 05/05/23 23:46 Urine Opiates Screen Not Detected (NotDetected) 05/05/23 23:46 Ur Oxycodone Screen Not Detected (NotDetected) 05/05/23 23:46 Urine Methadone Screen Not Detected (NotDetected) 05/05/23 23:46 Ur Barbiturates Screen Not Detected (NotDetected) 05/05/23 23:46 U Tricyclic Antidepress Not Detected (NotDetected) 05/05/23 23:46 Ur Phencyclidine Scrn Not Detected (NotDetected) 05/05/23 23:46 Ur Amphetamines Screen Not Detected (NotDetected) 05/05/23 23:46 U Methamphetamines Scrn Not Detected (NotDetected) 05/05/23 23:46 U Benzodiazepines Scrn Not Detected (NotDetected) 05/05/23 23:46 Urine Cocaine Screen Not Detected (NotDetected) 05/05/23 23:46 U Marijuana (THC) Screen Detected (NotDetected) H 05/05/23 23:46 SARS-CoV-2 (PCR) Not Detected (Not Detectd) 05/06/23 09:32 Vital Signs Temp 98 F 05/11/23 06:31 Pulse 89 05/11/23 06:31 Resp 16 05/11/23 06:31 BP 129/86 05/11/23 06:31 Pulse Ox 98 05/11/23 06:31 FiO2 Patient Condition at Discharge: Stable Plan - Discharge Summary Discharge Rx Participant: No New Discharge Prescriptions: New Fluticasone Propionate 110 Mcg [Flovent 110 Mcg Inhaler] 2 puff INHALATION RT-BID 30 Days #1 each ARIPiprazole [Abilify] 5 mg PO DAILY 30 Days #30 tab metFORMIN HCL [Glucophage] 500 mg PO BID-W/MEALS 30 Days #60 tab Ibuprofen [Motrin] 600 mg PO Q6HR PRN tab PRN Reason: Moderate Pain (Scale 4 To 6) FLUoxetine HCL [PROzac] 40 mg PO DAILY 30 Days #30 cap Continue Albuterol Inhaler [Ventolin Hfa Inhaler] 2 puff INHALATION RT-Q6H PRN PRN Reason: Shortness Of Breath Ipratropium-Albuterol Nebulize [Duoneb 0.5 mg-3 mg/3 ml Soln] 3 ml INHALATION RT-QID PRN PRN Reason: Shortness Of Breath Montelukast [Singulair] 10 mg PO DAILY 30 Days #30 tab Discontinued Fluticasone Propionate 110 Mcg [Flovent 110 Mcg Inhaler] 2 puff INHALATION RT-BID Discharge Medication List Albuterol Inhaler [Ventolin Hfa Inhaler] 2 puff INHALATION RT-Q6H PRN 05/06/23 [History] Ipratropium-Albuterol Nebulize [Duoneb 0.5 mg-3 mg/3 ml Soln] 3 ml INHALATION RT-QID PRN 05/06/23 [History] ARIPiprazole [Abilify] 5 mg PO DAILY 30 Days #30 tab 05/11/23 [Rx] FLUoxetine HCL [PROzac] 40 mg PO DAILY 30 Days #30 cap 05/11/23 [Rx] Fluticasone Propionate 110 Mcg [Flovent 110 Mcg Inhaler] 2 puff INHALATION RT- BID 30 Days #1 each 05/11/23 [Rx] Ibuprofen [Motrin] 600 mg PO Q6HR PRN tab 05/11/23 [Rx] Montelukast [Singulair] 10 mg PO DAILY 30 Days #30 tab 05/11/23 [Rx] metFORMIN HCL [Glucophage] 500 mg PO BID-W/MEALS 30 Days #60 tab 05/11/23 [Rx] Follow up Appointment(s)/Referral(s): [facility] [Outside] - 05/13/23 11:00 am (05/12@ 11am with Julian Cabello 05/23@ 9:30am with Dr. Harding) Oly Fields MD [Primary Care Provider] - 1-2 days Patient Instructions/Handouts: Depression (DC), Post Traumatic Stress Disorder (DC), Anxiety (GEN) Activity/Diet/Wound Care/Special Instructions: Belongings returned to patient at discharge, see Personal Property Sheet. Discharge instructions given with verbal understanding, papers signed and copies given in discharge folder. Patient verbalized ready for discharge denying suicidal and homicidal thoughts, verbalized intent to follow up at scheduled psychiatric appointments and take prescribed medications as ordered. Discharge Disposition: HOME SELF-CARE
== END 2023-05-11 12:55 | disposition home or self-care (01) | DRG 752 ==
LOC: EC 18:19 → 3MHU 05-06 11:04
PROVIDERS: ADMIT Psychiatry & Neurology Psychiatry; ATTEND Psychiatry & Neurology Psychiatry
DX: F60.3 Borderline personality disorder (principal); Z68.44 Body mass index [BMI] 60.0-69.9, adult; R45.851 Suicidal ideations; F11.11 Opioid abuse, in remission; F14.21 Cocaine dependence, in remission; F31.9 Bipolar disorder, unspecified; E66.01 Morbid (severe) obesity due to excess calories; E11.9 Type 2 diabetes mellitus without complications; F10.11 Alcohol abuse, in remission; J45.909 Unspecified asthma, uncomplicated; Z11.52 Encounter for screening for COVID-19; Z28.310 Unvaccinated for COVID-19; F41.9 Anxiety disorder, unspecified; F43.10 Post-traumatic stress disorder, unspecified; R74.01 Elevation of levels of liver transaminase levels; Z79.899 Other long term (current) drug therapy; Z91.51 Personal history of suicidal behavior; Z62.810 Personal history of physical and sexual abuse in childhood; Z59.6 Low income; Z81.8 Family history of other mental and behavioral disorders
CPT/HCPCS: 36415; 80053; 80061; 80306; 81001; 81025; 82075; 83036; 84443; 85025; 87635; 99285

== ENCOUNTER 2023-06-28 14:19 | Emergency (ER) | payer OTHER ==
--- NOTE | 2023-06-28 14:49 | ED ---
General Adult HPI - General Source: EMS, RN notes reviewed, old records reviewed Mode of arrival: EMS Limitations: no limitations, physical limitation <Dimas Buchanan - Last Filed: 06/28/23 14:43> <fYn Lutz - Last Filed: 06/28/23 16:52> - General Chief complaint: Shortness of Breath Stated complaint: SOB Time Seen by Provider: 06/28/23 14:28 - History of Present Illness Initial comments: Patient is a 28-year-old female with past medical history markable for asthma who presents emergency department complaining of shortness of breath. States has been ongoing for a week. Has been without her asthma medications. Denies any chest pain. Endorses a nonproductive cough. Denies nausea or vomiting or diarrhea. Denies any abdominal pain. Presents for further evaluation at this time. Patient was given a breathing treatment on the way to the emergency department. States she is out of her home inhalers. (Dimas Buchanan) - Related Data Home Medications Medication Instructions Recorded Confirmed Albuterol Inhaler [Ventolin Hfa 2 puff INHALATION RT-Q6H PRN 05/06/23 05/06/23 Inhaler] Ipratropium-Albuterol Nebulize 3 ml INHALATION RT-QID PRN 05/06/23 05/06/23 [Duoneb 0.5 mg-3 mg/3 ml Soln] Previous Rx's Medication Instructions Recorded ARIPiprazole [Abilify] 5 mg PO DAILY 30 Days #30 tab 05/11/23 FLUoxetine HCL [PROzac] 40 mg PO DAILY 30 Days #30 cap 05/11/23 Fluticasone Propionate 110 Mcg 2 puff INHALATION RT-BID 30 Days 05/11/23 [Flovent 110 Mcg Inhaler] #1 each Ibuprofen [Motrin] 600 mg PO Q6HR PRN tab 05/11/23 Montelukast [Singulair] 10 mg PO DAILY 30 Days #30 tab 05/11/23 metFORMIN HCL [Glucophage] 500 mg PO BID-W/MEALS 30 Days #60 05/11/23 tab Albuterol Inhaler [Ventolin Hfa 1 - 2 puff INHALATION Q4HR PRN #1 06/28/23 Inhaler] each predniSONE 50 mg PO DAILY #5 tab 06/28/23 Allergies Allergy/AdvReac Type Severity Reaction Status Date / Time No Known Allergies Allergy Verified 05/06/23 09:30 Review of Systems ROS Other: All systems not noted in ROS Statement are negative. <Dimas Buchanan - Last Filed: 06/28/23 14:43> ROS Other: All systems not noted in ROS Statement are negative. <Yfn Lutz - Last Filed: 06/28/23 16:52> ROS Statement: Those systems with pertinent positive or pertinent negative responses have been documented in the HPI. Review of Systems: CONST: Denies fever EYES: Denies blurry vision ENT: Denies nasal congestion C/V: Denies Chest pain RESP: Endorses shortness of breath GI: Denies abdominal pain : Denies dysuria SKIN: Denies rash. MSK: Denies joint pain. NEURO: Denies headache (Dimas Buchanan) Past Medical History Past Medical History: Asthma, Seizure Disorder Additional Past Medical History / Comment(s): seizure, pre-COPD History of Any Multi-Drug Resistant Organisms: None Reported Past Surgical History: No Surgical Hx Reported Past Anesthesia/Blood Transfusion Reactions: No Reported Reaction Past Psychological History: Anxiety, Bipolar, Depression Smoking Status: Never smoker Past Alcohol Use History: Occasional Past Drug Use History: Marijuana <Dimas Buchanan - Last Filed: 06/28/23 14:43> General Exam Limitations: no limitations, physical limitation <Dimas Buchanan - Last Filed: 06/28/23 14:43> - General Exam Comments Initial Comments: General: Appears in no acute distress. HEAD: Normal with no signs of head trauma. EYES: PERRLA, EOMI ENT: Hearing grossly intact, normal oropharynx. RESPIRATORY: Bilateral end expiratory wheezing. Mild hypoxia on room air ranging between 91 and 94%. C/V: Regular rate and rhythm. S1 and S2 auscultated, no edema, peripheral pulses 2+ and intact throughout ABD: Abd is soft, nontender, nondistended EXT: no obvious deformity SKIN: No rashes or lesions observed on exposed skin. NEURO: Alert and oriented x 4 (Dimas Buchanan) Course Vital Signs 06/28/23 06/28/23 06/28/23 14:27 15:24 15:31 Pulse Rate 95 95 84 Respiratory 18 Rate Blood Pressure 142/100 O2 Sat by Pulse 91 L Oximetry Medical Decision Making - EKG Data -: EKG Interpreted by Me <DewayneDimas - Last Filed: 06/28/23 14:43> - Lab Data Result diagrams: 06/28/23 15:21 06/28/23 15:21 <Yfn Lutz Lg - Last Filed: 06/28/23 16:52> - Medical Decision Making Was pt. sent in by a medical professional or institution (, PA, MOTION AND TIME STUDY TEACHER, urgent care, hospital, or prison...) When possible be specific @ -No Did you speak to anyone other than the patient for history (EMS, parent, family, police, friend...)? What history was obtained from this source @ -No Did you review nursing and triage notes (agree or disagree)? Why? @ -I reviewed and agree with nursing and triage notes Were old charts reviewed (outside hosp., previous admission, EMS record, old EKG, old radiological studies, urgent care reports/EKG's, prison records)? Report findings @ -Old charts reviewed Differential Diagnosis (chest pain, altered mental status, abdominal pain women, abdominal pain men, vaginal bleeding, weakness, fever, dyspnea, syncope, headache, dizziness, GI bleed, back pain, seizure, CVA, palpatations, mental health, musculoskeletal)? @ -Differential Dyspnea: Coronary syndrome, arrhythmia, tamponade, asthma, COPD, pulmonary embolism, pneumonia, pneumothorax, pulmonary effusion, anaphylaxis, diabetic ketoacidosis, flailed chest, pulmonary contusion, diaphragmatic rupture, anemia, neuromuscular, this is not meant to be an all-inclusive list. EKG interpreted by me (3pts min.). @ -As above X-rays interpreted by me (1pt min.). @ -Pending CT interpreted by me (1pt min.). @ -None done U/S interpreted by me (1pt. min.). @ -None done What testing was considered but not performed or refused? (CT, X-rays, U/S, labs)? Why? @ -None What meds were considered but not given or refused? Why? @ -None Did you discuss the management of the patient with other professionals (p rofessionals i.e. , PA, MOTION AND TIME STUDY TEACHER, lab, RT, psych nurse, social secretary, section 8 property manager, teacher, assignment officer, case finisher)? Give summary @ -No Was smoking cessation discussed for >3mins.? @ -No Was critical care preformed (if so, how long)? @ -No Were there social determinants of health that impacted care today? How? (Homelessness, low income, unemployed, alcoholism, drug addiction, transportation, low edu. Level, literacy, decrease access to med. care, prison, rehab)? @ -No Was there de-escalation of care discussed even if they declined (Discuss DNR or withdrawal of care, Hospice)? DNR status @ -No What co-morbidities impacted this encounter? (DM, HTN, Smoking, COPD, CAD, Cancer, CVA, ARF, Chemo, Hep., AIDS, mental health diagnosis, sleep apnea, morbid obesity)? @ -Asthma Was patient admitted / discharged? Hospital course, mention meds given and route, prescriptions, significant lab abnormalities, going to OR and other pertinent info. @ -Patient presents for what appears to be asthma exacerbation. We will obtain basic labs, chest x-ray, infectious labs. Patient be symptomatically treated with IV steroids, magnesium, fluids as well as breathing treatment. Patient agreement this plan. Vital signs remarkable for mild hypoxia on room air during 91 to 94%. Patient was in agreement this plan. EKG shows no signs of acute ischemia. Remainder the workup is still pending. Patient signed out to Dr. Lutz pending results of workup. Undiagnosed new problem with uncertain prognosis? @ -No Drug Therapy requiring intensive monitoring for toxicity (Heparin, Nitro, Insulin, Cardizem)? @ -No Were any procedures done? @ -No (Dimas Buchanan) Patient reevaluated after initial treatment. She is resting comfortably. She does have continued wheezing without hypoxia or respiratory distress. Patient is oxygenating well on room air. Laboratory testing reviewed, normal CBC, normal CMP, negative viral panel, chest x-ray is clear without focal pneumonia or acute findings. Chest x-ray was reviewed by myself. Patient offered observation for continued treatment of asthma exacerbation, patient prefers discharge at this time. (Yfn Lutz) - Lab Data Lab Results 06/28/23 06/28/23 06/28/23 Range/Units 15:21 15:21 15:21 WBC 7.7 (3.8-10.6) k/uL RBC 4.76 (3.80-5.40) m/uL Hgb 12.1 (11.4-16.0) gm/dL Hct 37.1 (34.0-46.0) % MCV 78.0 L (80.0-100.0) fL MCH 25.5 (25.0-35.0) pg MCHC 32.7 (31.0-37.0) g/dL RDW 15.1 (11.5-15.5) % Plt Count 305 (150-450) k/uL MPV 7.7 Neutrophils % 47 % Lymphocytes % 27 % Monocytes % 4 % Eosinophils % 20 % Basophils % 0 % Neutrophils # 3.6 (1.3-7.7) k/uL Lymphocytes # 2.1 (1.0-4.8) k/uL Monocytes # 0.3 (0-1.0) k/uL Eosinophils # 1.5 H (0-0.7) k/uL Basophils # 0.0 (0-0.2) k/uL Microcytosis Slight Sodium 141 (137-145) mmol/L Potassium 4.2 (3.5-5.1) mmol/L Chloride 109 H (98-107) mmol/L Carbon Dioxide 27 (22-30) mmol/L Anion Gap 5 mmol/L BUN 9 (7-17) mg/dL Creatinine 0.62 (0.52-1.04) mg/dL Est GFR (CKD-EPI)AfAm >90 (>60 ml/min/1.73 sqM) Est GFR (CKD-EPI)NonAf >90 (>60 ml/min/1.73 sqM) Glucose 88 (74-99) mg/dL Calcium 9.2 (8.4-10.2) mg/dL Total Bilirubin 0.7 (0.2-1.3) mg/dL AST 67 H (14-36) U/L ALT 78 H (4-34) U/L Alkaline Phosphatase 65 (38-126) U/L Total Protein 7.5 (6.3-8.2) g/dL Albumin 4.1 (3.5-5.0) g/dL Influenza Type A (PCR) Not Detected (Not Detectd) Influenza Type B (PCR) Not Detected (Not Detectd) RSV (PCR) Not Detected (Not Detectd) SARS-CoV-2 (PCR) Not Detected (Not Detectd) - EKG Data EKG Comments: 12-lead Electrocardiogram Interpretation Note EKG was reviewed and interpreted by myself. 12-lead ECG performed at 1437 is interpreted by me as revealing normal sinus rhythm at a rate of 80 beats per minute. Crosby is normal. TN interval is 143 ms, QRS duration is 93 ms, QTc is 418 ms.. There were no ST or T wave abnormalities to suggest myocardial ischemi a or injury. R wave progression across the precordium was satisfactory. By my interpretation this EKG is non-diagnostic for acute ischemia. (Dimas Buchanan) Disposition <Dimas Buchanan - Last Filed: 06/28/23 14:43> Is patient prescribed a controlled substance at d/c from ED?: No Time of Disposition: 16:52 <Yfn Lutz - Last Filed: 06/28/23 16:52> Clinical Impression: Asthma with acute exacerbation Disposition: HOME SELF-CARE Condition: Fair Instructions (If sedation given, give patient instructions): Asthma (ED) Prescriptions: predniSONE 50 mg PO DAILY #5 tab Albuterol Inhaler [Ventolin Hfa Inhaler] 1 - 2 puff INHALATION Q4HR PRN #1 each PRN Reason: Shortness Of Breath Referrals: Oly Fields MD [Primary Care Provider] - 1-2 days
[2023-06-28 15:14] VITALS: RESP 18
[2023-06-28] MEDS: IPRATROPIUM-ALBUTEROL 3 ML NEB INHALATION STA (15:23)
[2023-06-28 15:47] LABS: ALT 78 U/L (4-34); AST 67 U/L (14-36); African American GFR (CKD) >90 (>60 ml/min/1.73 sqM); Albumin 4.1 g/dL (3.5-5.0); Alkaline Phosphatase 65 U/L (38-126); Anion Gap 5 mmol/L; Blood Urea Nitrogen 9 mg/dL (7-17); Calcium 9.2 mg/dL (8.4-10.2); Carbon Dioxide 27 mmol/L (22-30); Chloride 109 mmol/L (98-107); Glucose 88 mg/dL (74-99); Non-African American GFR(CKD) >90 (>60 ml/min/1.73 sqM); Potassium 4.2 mmol/L (3.5-5.1); Sodium 141 mmol/L (137-145); Total Bilirubin 0.7 mg/dL (0.2-1.3); Total Protein 7.5 g/dL (6.3-8.2)
[2023-06-28] MEDS: methylPREDNISolone SOD SUCCI 125 MG/2 ML VIAL IV STA (15:54)
[2023-06-28] MEDS: SODIUM CHLORIDE 0.9% 500 ML 500 ML IV STA (15:55)
[2023-06-28] MEDS: MAGNESIUM SULFATE-D5W PMX 1 GM in DEXTROSE/WATER 1 100ML.BAG IVPB STA (15:56)
[2023-06-28 15:59] LABS: Basophils % (A) 0 %; Eosinophils # (A) 1.5 k/uL (0-0.7); Eosinophils % (A) 20 %; HCT 37.1 % (34.0-46.0); HGB 12.1 gm/dL (11.4-16.0); Lymphocytes # (A) 2.1 k/uL (1.0-4.8); Lymphocytes % (A) 27 %; MCH 25.5 pg (25.0-35.0); MCHC 32.7 g/dL (31.0-37.0); Mean Platelet Volume 7.7; Microcytosis Slight; Monocytes # (A) 0.3 k/uL (0-1.0); Monocytes % (A) 4 %; Neutrophils # (A) 3.6 k/uL (1.3-7.7); Neutrophils % (A) 47 %; Platelet Count 305 k/uL (150-450); RBC 4.76 m/uL (3.80-5.40); RDW 15.1 % (11.5-15.5); WBC 7.7 k/uL (3.8-10.6)
--- NOTE | 2023-06-28 16:21 | XR ---
EXAMINATION TYPE: XR chest 2V DATE OF EXAM: 06/28/2023 3:52 PM CLINICAL INDICATION:Female, 28 years old with history of difficulty breathing; COMPARISON: Chest radiographs from 01/16/2023. TECHNIQUE: XR chest 2V Frontal and lateral views of the chest. FINDINGS: Lungs/Pleura: There is no evidence of pleural effusion, focal consolidation, or pneumothorax. Pulmonary vascularity: Unremarkable. Heart/mediastinum: Cardiomediastinal silhouette is unremarkable. Musculoskeletal: No acute osseous pathology. IMPRESSION: No acute cardiopulmonary disease/process.
[2023-06-28 18:06] VITALS: BP 156/108; PULSE 85
== END 2023-06-28 17:46 | disposition home or self-care (01) ==
LOC: EC 14:19
DX: J45.901 Unspecified asthma with (acute) exacerbation (principal); F12.90 Cannabis use, unspecified, uncomplicated
CPT/HCPCS: 96365; 96375; 99285; 36415; 94640; 93005; 80053; 85025; 87636; 71046; J3475; J2919; 96361

== ENCOUNTER 2023-07-11 08:30 | Emergency (ER) | payer OTHER ==
--- NOTE | 2023-07-11 09:06 | ED ---
General Adult HPI - General Chief complaint: Recheck/Abnormal Lab/Rx Stated complaint: SOB,MED REFILL Time Seen by Provider: 07/11/23 08:44 Source: patient, RN notes reviewed Mode of arrival: ambulatory Limitations: no limitations - History of Present Illness Initial comments: 28-year-old female presents emergency department complaining medication refill, shortness of breath. Patient states she has asthma states that she decided shortness of breath coming into the hospital. She was coming here for medication refill. She denies any chest pain no fevers no significant cough or cold-like symptoms. - Related Data Home Medications Medication Instructions Recorded Confirmed Albuterol Inhaler [Ventolin Hfa 2 puff INHALATION RT-Q6H PRN 05/06/23 05/06/23 Inhaler] Ipratropium-Albuterol Nebulize 3 ml INHALATION RT-QID PRN 05/06/23 05/06/23 [Duoneb 0.5 mg-3 mg/3 ml Soln] Previous Rx's Medication Instructions Recorded Ibuprofen [Motrin] 600 mg PO Q6HR PRN tab 05/11/23 Montelukast [Singulair] 10 mg PO DAILY 30 Days #30 tab 05/11/23 Albuterol Inhaler [Ventolin Hfa 1 - 2 puff INHALATION Q4HR PRN #1 06/28/23 Inhaler] each Montelukast [Singulair] 10 mg PO DAILY #30 tab 06/28/23 predniSONE 50 mg PO DAILY #5 tab 06/28/23 ARIPiprazole [Abilify] 5 mg PO DAILY 30 Days #30 tab 07/11/23 FLUoxetine HCL [PROzac] 40 mg PO DAILY 30 Days #30 cap 07/11/23 Fluticasone Propionate 110 Mcg 2 puff INHALATION RT-BID 30 Days 07/11/23 [Flovent 110 Mcg Inhaler] #1 each Ipratropium-Albuterol Nebulize 3 ml INHALATION QID #25 each 07/11/23 [Duoneb 0.5 mg-3 mg/3 ml Soln] metFORMIN HCL [Glucophage] 500 mg PO BID-W/MEALS 30 Days #60 07/11/23 tab predniSONE 50 mg PO DAILY #5 tab 07/11/23 Allergies Allergy/AdvReac Type Severity Reaction Status Date / Time No Known Allergies Allergy Verified 07/11/23 08:50 Review of Systems ROS Statement: Those systems with pertinent positive or pertinent negative responses have been documented in the HPI. ROS Other: All systems not noted in ROS Statement are negative. Past Medical History Past Medical History: Asthma, Seizure Disorder Additional Past Medical History / Comment(s): seizure, pre-COPD History of Any Multi-Drug Resistant Organisms: None Reported Past Surgical History: No Surgical Hx Reported Past Anesthesia/Blood Transfusion Reactions: No Reported Reaction Past Psychological History: Anxiety, Bipolar, Depression Smoking Status: Never smoker Past Alcohol Use History: Occasional Past Drug Use History: Marijuana General Exam Limitations: no limitations General appearance: alert, in no apparent distress Head exam: Present: atraumatic, normocephalic, normal inspection Eye exam: Present: normal appearance, PERRL, EOMI. Absent: scleral icterus, conjunctival injection, periorbital swelling ENT exam: Present: normal exam, normal oropharynx, mucous membranes moist Neck exam: Present: normal inspection, full ROM. Absent: tenderness, meningismus, lymphadenopathy Respiratory exam: Present: wheezes. Absent: normal lung sounds bilaterally, respiratory distress, rales, rhonchi, stridor Cardiovascular Exam: Present: regular rate, normal rhythm, normal heart sounds. Absent: systolic murmur, diastolic murmur, rubs, gallop, clicks Course Vital Signs 07/11/23 07/11/23 07/11/23 08:47 09:48 10:09 Temperature 97.8 F Pulse Rate 93 92 96 Respiratory 22 Rate Blood Pressure 143/86 O2 Sat by Pulse 93 L Oximetry - Reevaluation(s) Reevaluation #1: 07/11/23 09:22 patient reevaluated feels greatly improved at this time. Medical Decision Making - Medical Decision Making Was pt. sent in by a medical professional or institution (, PA, ALL TERRAIN VEHICLE RACER, urgent care, hospital, or correction...) When possible be specific @ -No Did you speak to anyone other than the patient for history (EMS, parent, family, police, friend...)? What history was obtained from this source @ -No Did you review nursing and triage notes (agree or disagree)? Why? @ -I reviewed and agree with nursing and triage notes Were old charts reviewed (outside hosp., previous admission, EMS record, old EKG, old radiological studies, urgent care reports/EKG's, correction records)? Report findings @ -No old charts were reviewed Differential Diagnosis (chest pain, altered mental status, abdominal pain women, abdominal pain men, vaginal bleeding, weakness, fever, dyspnea, syncope, headache, dizziness, GI bleed, back pain, seizure, CVA, palpatations, mental health, musculoskeletal)? @ -Differential Dyspnea: Coronary syndrome, arrhythmia, tamponade, asthma, COPD, pulmonary embolism, pneumonia, pneumothorax, pulmonary effusion, anaphylaxis, diabetic ketoacidosis, flailed chest, pulmonary contusion, diaphragmatic rupture, anemia, neuromuscular, this is not meant to be an all-inclusive list. EKG interpreted by me (3pts min.). @ -None X-rays interpreted by me (1pt min.). @ -None done CT interpreted by me (1pt min.). @ -None done U/S interpreted by me (1pt. min.). @ -None done What testing was considered but not performed or refused? (CT, X-rays, U/S, labs)? Why? @ -None What meds were considered but not given or refused? Why? @ -None Did you discuss the management of the patient with other professionals (professionals i.e. , PA, ALL TERRAIN VEHICLE RACER, lab, RT, psych nurse, social insurance specialist, optical sales associate, teacher, chief science officer, family service caseworker)? Give summary @ -No Was smoking cessation discussed for >3mins.? @ -No Was critical care preformed (if so, how long)? @ -No Were there social determinants of health that impacted care today? How? (Homelessness, low income, unemployed, alcoholism, drug addiction, transpor tation, low edu. Level, literacy, decrease access to med. care, senior living, rehab)? @ -No Was there de-escalation of care discussed even if they declined (Discuss DNR or withdrawal of care, Hospice)? DNR status @ -No What co-morbidities impacted this encounter? (DM, HTN, Smoking, COPD, CAD, Cancer, CVA, ARF, Chemo, Hep., AIDS, mental health diagnosis, sleep apnea, morbid obesity)? @ -[Asthma Was patient admitted / discharged? Hospital course, mention meds given and route, prescriptions, significant lab abnormalities, going to OR and other pertinent info. @ -Patient presented for medication refill along with asthma issues. Patient was given DuoNeb treatment feels greatly improved will be discharged with her prescriptions along with prednisone and she will follow-up with pulmonology Undiagnosed new problem with uncertain prognosis? @ -No Drug Therapy requiring intensive monitoring for toxicity (Heparin, Nitro, Insulin, Cardizem)? @ -No Were any procedures done? @ -No Diagnosis/symptom? @ -Medication refill, asthma with acute exacerbation Acute, or Chronic, or Acute on Chronic? @ -Acute Uncomplicated (without systemic symptoms) or Complicated (systemic symptoms)? @ -Uncomplicated Side effects of treatment? @ -No Exacerbation, Progression, or Severe Exacerbation? @ -No Poses a threat to life or bodily function? How? (Chest pain, USA, CT, pneumonia, PE, COPD, DKA, ARF, appy, cholecystitis, CVA, Diverticulitis, Homicidal, Suicidal, threat to staff... and all critical care pts) @ -No Disposition Clinical Impression: Medication refill, Asthma with acute exacerbation Disposition: HOME SELF-CARE Condition: Stable Instructions (If sedation given, give patient instructions): Asthma (ED) Additional Instructions: Please return to the Emergency Department if symptoms worsen or any other concerns. Prescriptions: ARIPiprazole [Abilify] 5 mg PO DAILY 30 Days #30 tab Ipratropium-Albuterol Nebulize [Duoneb 0.5 mg-3 mg/3 ml Soln] 3 ml INHALATION QID #25 each Fluticasone Propionate 110 Mcg [Flovent 110 Mcg Inhaler] 2 puff INHALATION RT- BID 30 Days #1 each metFORMIN HCL [Glucophage] 500 mg PO BID-W/MEALS 30 Days #60 tab predniSONE 50 mg PO DAILY #5 tab FLUoxetine HCL [PROzac] 40 mg PO DAILY 30 Days #30 cap Is patient prescribed a controlled substance at d/c from ED?: No Referrals: Oly Fields MD [Primary Care Provider] - 1-2 days Yfn Fierro DO [Doctor of Osteopathic Medicine] - 1-2 days Time of Disposition: 10:12
[2023-07-11] MEDS: methylPREDNISolone SOD SUCCI 125 MG/2 ML VIAL IM ONE (09:27)
[2023-07-11] MEDS: IPRATROPIUM-ALBUTEROL 3 ML NEB INHALATION STA (09:48)
[2023-07-11 11:18] VITALS: BP 136/80; PULSE 98; RESP 20; TEMP 98.1
== END 2023-07-11 10:20 | disposition home or self-care (01) ==
LOC: EC 08:30
DX: Z76.0 Encounter for issue of repeat prescription (principal); J45.901 Unspecified asthma with (acute) exacerbation; F12.90 Cannabis use, unspecified, uncomplicated
CPT/HCPCS: 99283; 96372; 94640; J2919

== ENCOUNTER 2023-07-31 08:07 | Emergency (ER) | payer OTHER ==
--- NOTE | 2023-07-31 08:23 | ED ---
General Adult HPI - General Chief complaint: Shortness of Breath Stated complaint: SOB Time Seen by Provider: 07/31/23 08:10 Source: patient, RN notes reviewed, old records reviewed Mode of arrival: ambulatory Limitations: no limitations - History of Present Illness Initial comments: This is a 28-year-old female who presents to the emergency department with a past medical history significant for asthma. Patient states this morning she woke up at 3:00 and was wheezing and she went to use her nebulizer but it was not working so she tried not to come in but the wheezing got worse so she decided come in. Patient denies any fever chills but patient has any cough. Patient has any chest pain. Patient denies any other symptoms at this time except for her wheezing. Patient states that this time of year when the pollen is out she has quite a few asthma attacks and normally the nebulizer at home is enough but since it broke and she does not have any albuterol inhalers she needed to come to the emergency department. - Related Data Home Medications Medication Instructions Recorded Confirmed Albuterol Inhaler [Ventolin Hfa 2 puff INHALATION RT-Q6H PRN 05/06/23 05/06/23 Inhaler] Ipratropium-Albuterol Nebulize 3 ml INHALATION RT-QID PRN 05/06/23 05/06/23 [Duoneb 0.5 mg-3 mg/3 ml Soln] Previous Rx's Medication Instructions Recorded Ibuprofen [Motrin] 600 mg PO Q6HR PRN tab 05/11/23 Montelukast [Singulair] 10 mg PO DAILY 30 Days #30 tab 05/11/23 Albuterol Inhaler [Ventolin Hfa 1 - 2 puff INHALATION Q4HR PRN #1 06/28/23 Inhaler] each Montelukast [Singulair] 10 mg PO DAILY #30 tab 06/28/23 predniSONE 50 mg PO DAILY #5 tab 06/28/23 ARIPiprazole [Abilify] 5 mg PO DAILY 30 Days #30 tab 07/11/23 FLUoxetine HCL [PROzac] 40 mg PO DAILY 30 Days #30 cap 07/11/23 Fluticasone Propionate 110 Mcg 2 puff INHALATION RT-BID 30 Days 07/11/23 [Flovent 110 Mcg Inhaler] #1 each Ipratropium-Albuterol Nebulize 3 ml INHALATION QID #25 each 07/11/23 [Duoneb 0.5 mg-3 mg/3 ml Soln] metFORMIN HCL [Glucophage] 500 mg PO BID-W/MEALS 30 Days #60 07/11/23 tab predniSONE 50 mg PO DAILY #5 tab 07/11/23 Albuterol Inhaler [Ventolin Hfa 1 - 2 puff INHALATION Q6HR PRN #2 07/31/23 Inhaler] each predniSONE [Deltasone] 40 mg PO DAILY #8 tab 07/31/23 Allergies Allergy/AdvReac Type Severity Reaction Status Date / Time No Known Allergies Allergy Verified 07/31/23 08:10 Review of Systems ROS Statement: Those systems with pertinent positive or pertinent negative responses have been documented in the HPI. ROS Other: All systems not noted in ROS Statement are negative. Past Medical History Past Medical History: Asthma, Seizure Disorder Additional Past Medical History / Comment(s): seizure, pre-COPD History of Any Multi-Drug Resistant Organisms: None Reported Past Surgical History: No Surgical Hx Reported Past Anesthesia/Blood Transfusion Reactions: No Reported Reaction Past Psychological History: Anxiety, Bipolar, Depression Smoking Status: Never smoker Past Alcohol Use History: Occasional Past Drug Use History: Marijuana General Exam - General Exam Comments Initial Comments: GENERAL: Patient is well-developed and well-nourished. Patient is nontoxic and well- hydrated and is in mild distress ENT: Neck is soft and supple. No significant lymphadenopathy is noted. Oropharynx is clear. Moist mucous membranes. Neck has full range of motion without eliciting any pain. EYES: The sclera were anicteric and conjunctiva were pink and moist. Extraocular movements were intact and pupils were equal round and reactive to light. Eyelids were unremarkable. PULMONARY: Patient has diffuse expiratory wheeze CARDIOVASCULAR: There is a regular rate and rhythm without any murmurs gallops or rubs. ABDOMEN: Soft and nontender with normal bowel sounds. SKIN: Skin is clear with no lesions or rashes and otherwise unremarkable. NEUROLOGIC: Patient is alert and oriented x3. Cranial nerves II through XII are grossly intact. Motor and sensory are also intact. Normal speech, volume and content. Symmetrical smile. MUSCULOSKELETAL: Normal extremities with adequate strength and full range of motion. LYMPHATICS: No significant lymphadenopathy is noted PSYCHIATRIC: Normal psychiatric evaluation. Limitations: no limitations Course Vital Signs 07/31/23 07/31/2307/30/24 08:08 08:28 08:36 Temperature 97.7 F Pulse Rate 106 H 94 Respiratory 18 20 Rate Blood Pressure 113/91 O2 Sat by Pulse 95 Oximetry 07/31/23 07/31/23 07/31/23 08:44 08:52 09:54 Temperature 98.3 F Pulse Rate 90 96 91 Respiratory 18 Rate Blood Pressure 141/101 O2 Sat by Pulse 97 Oximetry Medical Decision Making - Medical Decision Making Was pt. sent in by a medical professional or institution (, PA, EQUIPMENT SPECIALIST, urgent care, hospital, or group home...) When possible be specific @ -No Did you speak to anyone other than the patient for history (EMS, parent, family, police, friend...)? What history was obtained from this source @ -No Did you review nursing and triage notes (agree or disagree)? Why? @ -I reviewed and agree with nursing and triage notes Were old charts reviewed (outside hosp., previous admission, EMS record, old EKG, old radiological studies, urgent care reports/EKG's, group home records)? Report findings @ -No old charts were reviewed Differential Diagnosis (chest pain, altered mental status, abdominal pain women, abdominal pain men, vaginal bleeding, weakness, fever, dyspnea, syncope, headache, dizziness, GI bleed, back pain, seizure, CVA, palpatations, mental health, musculoskeletal)? @ -Differential Dyspnea: Coronary syndrome, arrhythmia, tamponade, asthma, COPD, pulmonary embolism, pneumonia, pneumothorax, pulmonary effusion, anaphylaxis, diabetic ketoacidosis, flailed chest, pulmonary contusion, diaphragmatic rupture, anemia, neuromuscular, this is not meant to be an all-inclusive list. EKG interpreted by me (3pts min.). @ -As above X-rays interpreted by me (1pt min.). @ -None done CT interpreted by me (1pt min.). @ -None done U/S interpreted by me (1pt. min.). @ -None done What testing was considered but not performed or refused? (CT, X-rays, U/S, labs)? Why? @ -None What meds were considered but not given or refused? Why? @ -None Did you discuss the management of the patient with other professionals (professionals i.e. , JUAN ANTONIO, EQUIPMENT SPECIALIST, lab, RT, psych nurse, addiction social worker, rand tacker, teacher, bomb squad officer, case manager specialist)? Give summary @ -No Was smoking cessation discussed for >3mins.? @ -No Was critical care preformed (if so, how long)? @ -No Were there social determinants of health that impacted care today? How? (Homelessness, low income, unemployed, alcoholism, drug addiction, transportation, low edu. Level, literacy, decrease access to med. care, half-way, rehab)? @ -No Was there de-escalation of care discussed even if they declined (Discuss DNR or withdrawal of care, Hospice)? DNR status @ -No What co-morbidities impacted this encounter? (DM, HTN, Smoking, COPD, CAD, Cancer, CVA, ARF, Chemo, Hep., AIDS, mental health diagnosis, sleep apnea, morbid obesity)? @ -None Was patient admitted / discharged? Hospital course, mention meds given and route, prescriptions, significant lab abnormalities, going to OR and other pertinent info. @ -Patient received Solu-Medrol and 2 breathing treatments in the emergency department. I went back and listen to her she still had a slight wheeze but stated she felt back to her baseline and want to be discharged home. Patient's blood pressure was mildly elevated but this was just after she received 2 breathing treatments and she states she has no history of high blood pressure. Patient was informed that she needs to go to her primary medical care doctor to be evaluated for high blood pressure and possibly be treated. Undiagnosed new problem with uncertain prognosis? @ -No Drug Therapy requiring intensive monitoring for toxicity (Heparin, Nitro, Insulin, Cardizem)? @ -No Were any procedures done? @ -No Diagnosis/symptom? @ -Exacerbation of asthma Acute, or Chronic, or Acute on Chronic? @ -Acute Uncomplicated (without systemic symptoms) or Complicated (systemic symptoms)? @ -Complicated Side effects of treatment? @ -No Exacerbation, Progression, or Severe Exacerbation? @ -Exacerbation Poses a threat to life or bodily function? How? (Chest pain, [place], [place], pneumonia, PE, COPD, DKA, ARF, appy, cholecystitis, CVA, Diverticulitis, Homicidal, Suicidal, threat to staff... and all critical care pts) @ -No Disposition Clinical Impression: Asthma with acute exacerbation Disposition: HOME SELF-CARE Instructions (If sedation given, give patient instructions): Asthma (ED) Prescriptions: predniSONE [Deltasone] 40 mg PO DAILY #8 tab Albuterol Inhaler [Ventolin Hfa Inhaler] 1 - 2 puff INHALATION Q6HR PRN #2 each PRN Reason: Difficulty breathing Is patient prescribed a controlled substance at d/c from ED?: No Referrals: Oly Fields MD [Primary Care Provider] - 1-2 days Time of Disposition: 10:08
[2023-07-31] MEDS: methylPREDNISolone SOD SUCCI 125 MG/2 ML VIAL IM ONE (08:34)
[2023-07-31] MEDS: IPRATROPIUM-ALBUTEROL 3 ML NEB INHALATION STA (08:36)
[2023-07-31 09:56] VITALS: BP 141/101; PULSE 91; RESP 18; TEMP 98.3
== END 2023-07-31 10:19 | disposition home or self-care (01) ==
LOC: EC 08:07
DX: J45.901 Unspecified asthma with (acute) exacerbation (principal); R03.0 Elevated blood-pressure reading, without diagnosis of hypertension; Z79.899 Other long term (current) drug therapy
CPT/HCPCS: 99284; 96372; 94640 ×2; J2919

== ENCOUNTER 2023-08-05 05:02 | Emergency (ER) | payer OTHER ==
[2023-08-05 05:24] VITALS: TEMP 97.8
[2023-08-05] MEDS: predniSONE 20 MG TAB PO STA (05:59)
[2023-08-05] MEDS: IPRATROPIUM-ALBUTEROL 3 ML NEB INHALATION STA (06:03)
[2023-08-05] MEDS: ALBUTEROL NEBULIZED 2.5 MG/3 ML INHALATION STA (06:03)
--- NOTE | 2023-08-05 06:39 | ED ---
SOB HPI - General Chief Complaint: Shortness of Breath Stated Complaint: NAILA Time Seen by Provider: 08/05/23 05:59 Source: patient, RN notes reviewed Mode of arrival: wheelchair Limitations: no limitations - History of Present Illness Initial Comments: This is a 28-year-old female who presents to the emergency department for shortness of breath. Patient reports a history of asthma and states that last night around 10 PM she started feeling short of breath. Her nebulizer is broken so she had to borrow one of her friends. States that she also needs to cone picker her albuterol inhaler. Denies any chest pain. States that this feels like a typical asthma exacerbation. MD Complaint: shortness of breath - Related Data Home Medications Medication Instructions Recorded Confirmed Albuterol Inhaler [Ventolin Hfa 2 puff INHALATION RT-Q6H PRN 05/06/23 05/06/23 Inhaler] Ipratropium-Albuterol Nebulize 3 ml INHALATION RT-QID PRN 05/06/23 05/06/23 [Duoneb 0.5 mg-3 mg/3 ml Soln] Previous Rx's Medication Instructions Recorded Ibuprofen [Motrin] 600 mg PO Q6HR PRN tab 05/11/23 Montelukast [Singulair] 10 mg PO DAILY 30 Days #30 tab 05/11/23 Albuterol Inhaler [Ventolin Hfa 1 - 2 puff INHALATION Q4HR PRN #1 06/28/23 Inhaler] each Montelukast [Singulair] 10 mg PO DAILY #30 tab 06/28/23 predniSONE 50 mg PO DAILY #5 tab 06/28/23 ARIPiprazole [Abilify] 5 mg PO DAILY 30 Days #30 tab 07/11/23 FLUoxetine HCL [PROzac] 40 mg PO DAILY 30 Days #30 cap 07/11/23 Fluticasone Propionate 110 Mcg 2 puff INHALATION RT-BID 30 Days 07/11/23 [Flovent 110 Mcg Inhaler] #1 each Ipratropium-Albuterol Nebulize 3 ml INHALATION QID #25 each 07/11/23 [Duoneb 0.5 mg-3 mg/3 ml Soln] metFORMIN HCL [Glucophage] 500 mg PO BID-W/MEALS 30 Days #60 07/11/23 tab predniSONE 50 mg PO DAILY #5 tab 07/11/23 Albuterol Inhaler [Ventolin Hfa 1 - 2 puff INHALATION Q6HR PRN #2 07/31/23 Inhaler] each predniSONE [Deltasone] 40 mg PO DAILY #8 tab 07/31/23 Ipratropium-Albuterol Nebulize 3 ml INHALATION Q4-6H PRN #90 ml 08/05/23 [Duoneb 0.5 mg-3 mg/3 ml Soln] predniSONE 50 mg PO DAILY 5 Days #5 tab 08/05/23 Allergies Allergy/AdvReac Type Severity Reaction Status Date / Time No Known Allergies Allergy Verified 08/05/23 05:24 Review of Systems ROS Statement: Those systems with pertinent positive or pertinent negative responses have been documented in the HPI. ROS Other: All systems not noted in ROS Statement are negative. Past Medical History Past Medical History: Asthma, Seizure Disorder Additional Past Medical History / Comment(s): seizure, pre-COPD History of Any Multi-Drug Resistant Organisms: None Reported Past Surgical History: No Surgical Hx Reported Past Anesthesia/Blood Transfusion Reactions: No Reported Reaction Past Psychological History: Anxiety, Bipolar, Depression Smoking Status: Never smoker Past Alcohol Use History: Occasional Past Drug Use History: Marijuana General Exam Limitations: no limitations General appearance: alert, in no apparent distress Head exam: Present: atraumatic, normocephalic, normal inspection Respiratory exam: Present: wheezes, decreased breath sounds, prolonged expiratory Cardiovascular Exam: Present: regular rate, normal rhythm, normal heart sounds. Absent: systolic murmur, diastolic murmur, rubs, gallop, clicks Neurological exam: Present: alert, oriented X3, CN II-XII intact Psychiatric exam: Present: normal affect, normal mood Skin exam: Present: warm, dry, intact, normal color. Absent: rash Course Vital Signs 08/05/23 08/05/23 08/05/23 05:22 05:52 06:04 Temperature 97.8 F Pulse Rate 102 H 100 Respiratory 24 24 Rate Blood Pressure 163/87 O2 Sat by Pulse 94 L Oximetry 08/05/23 06:26 Temperature Pulse Rate 92 Respiratory Rate Blood Pressure O2 Sat by Pulse Oximetry Medical Decision Making - Medical Decision Making This is a 28 year old female who presents to the emergency department for shortness of breath. Was pt. sent in by a medical professional or institution? @ -No Did you speak to anyone other than the patient for history? @ -No Did you review nursing and triage notes? @ -Yes, and I agree, it is accurate with regards to the patient's symptoms. Were old charts reviewed? @ -No Differential Diagnosis? @ -Differential Dyspnea: Coronary syndrome, arrhythmia, tamponade, asthma, COPD, pulmonary embolism, pneumonia, pneumothorax, pulmonary effusion, anaphylaxis, diabetic ketoacidosis, flailed chest, pulmonary contusion, diaphragmatic rupture, anemia, neuromuscular, this is not meant to be an all-inclusive list. EKG interpreted by me (3pts min.)? @ -Not obtained X-rays interpreted by me (1pt min.)? @ -Not obtained CT interpreted by me (1pt min.)? @ -Not obtained U/S interpreted by me (1pt. min.)? @ -Not obtained What testing was considered but not performed? (CT, X-rays, U/S, labs)? Why? @ -None What meds were considered but not given? Why? @ -None Did you discuss the management of the patient with other professionals? @ -No Did you reconcile home meds? @ -No Was smoking cessation discussed for >3mins.? @ -No Was critical care preformed (if so, how long)? @ -No Were there social determinants of health that impacted care today? How? (Homelessness, low income, unemployed, alcoholism, drug addiction, transportation, low edu. Level, literacy, decrease access to med. care, care home, rehab)? @ -No Was there de-escalation of care discussed even if they declined? (Discuss DNR or withdrawal of care, Hospice)? @ -No What co-morbidities impacted this encounter? (DM, HTN, Smoking, COPD, CAD, Cancer, CVA, Hep., AIDS, mental health diagnosis, sleep apnea, morbid obesity)? @ -Asthma Was patient admitted / discharged? @ -Discharged. Patient presented with clear asthma exacerbation requesting breathing treatment. DuoNeb breathing treatment with an extra dose of albuterol was administered along with 60 mg of prednisone. Patient declined an additional treatment in the emergency department. She did inquire about a nebulizer prescription. This was provided, however I advised that insurance may not cover this right away, in which case she may need to purchase one [id number]. Advised she cone picker her albuterol inhaler, which she states is ready for pickup at the pharmacy. She was given a prescription for an additional 5-day course of prednisone as well. Advised close follow-up with her primary care provider. Undiagnosed new problem with uncertain prognosis? @ -None Drug Therapy requiring intensive monitoring for toxicity (Heparin, Nitro, Insulin, Cardizem)? @ -None Were any procedures done? @ -None Diagnosis/symptom? @ -Asthma exacerbation Acute, or Chronic, or Acute on Chronic? @ -Acute on chronic Uncomplicated (without systemic symptoms) or Complicated (systemic symptoms)? @ -Uncomplicated Side effects of treatment? @ -None Exacerbation, Progression, or Severe Exacerbation] @ -Exacerbation Poses a threat to life or bodily function? @ -No Return precautions reviewed in depth, the patient is instructed to return to the emergency department with any new, worsening, or concerning symptoms. Patient verbalized understanding. This case was discussed in detail with the attending ED physician, Dr. Bernal. Presentation, findings, and treatment plan discussed in detail as well. Disposition Clinical Impression: Asthma exacerbation Disposition: HOME SELF-CARE Instructions (If sedation given, give patient instructions): How to Use a Nebulizer (ED), Wheezing (ED) Additional Instructions: Return to the emergency department with any new, worsening, or concerning symptoms. Take the prednisone daily for 5 days. Make sure you cone picker your albuterol inhaler. Take the prescription for the nebulizer to the pharmacy or a medical supply store. If they have any problems with the prescription make sure they contact us so that can be corrected as soon as possible. Use the DuoNeb breathing treatments every 4-6 hours as needed. Follow up with your primary care provider in 1-2 days. Prescriptions: Ipratropium-Albuterol Nebulize [Duoneb 0.5 mg-3 mg/3 ml Soln] 3 ml INHALATION Q4-6H PRN #90 ml PRN Reason: Shortness Of Breath predniSONE 50 mg PO DAILY 5 Days #5 tab Is patient prescribed a controlled substance at d/c from ED?: No Referrals: Oly Fields MD [Primary Care Provider] - 1-2 days Time of Disposition: 06:46
[2023-08-05 07:02] VITALS: BP 129/88; PULSE 99; RESP 20
== END 2023-08-05 07:03 | disposition home or self-care (01) ==
LOC: EC 05:02
DX: J45.901 Unspecified asthma with (acute) exacerbation (principal)
CPT/HCPCS: 99284; 94640; J7512

== ENCOUNTER 2023-09-08 20:58 | Emergency (ER) | payer OTHER ==
[2023-09-08 21:04] VITALS: TEMP 97.8
--- NOTE | 2023-09-08 21:38 | ED ---
General Adult HPI - General Chief complaint: Shortness of Breath Stated complaint: NAILA Time Seen by Provider: 09/08/23 21:05 Source: patient, RN notes reviewed Mode of arrival: ambulatory Limitations: no limitations - History of Present Illness Initial comments: 28-year-old female presents emergency department with chief complaint of shortness of breath. Patient has a history of asthma states that her nebulizer is not working and she is out of her inhaler. Patient states has been having wheezing minimal cough no fevers or chills no cold-like symptoms otherwise. Patient states that her nebulizer was supposed to be fixed but it was not fixed. - Related Data Home Medications Medication Instructions Recorded Confirmed Albuterol Inhaler [Ventolin Hfa 2 puff INHALATION RT-Q6H PRN 05/06/23 05/06/23 Inhaler] Ipratropium-Albuterol Nebulize 3 ml INHALATION RT-QID PRN 05/06/23 05/06/23 [Duoneb 0.5 mg-3 mg/3 ml Soln] Previous Rx's Medication Instructions Recorded Ibuprofen [Motrin] 600 mg PO Q6HR PRN tab 05/11/23 Montelukast [Singulair] 10 mg PO DAILY 30 Days #30 tab 05/11/23 Albuterol Inhaler [Ventolin Hfa 1 - 2 puff INHALATION Q4HR PRN #1 06/28/23 Inhaler] each Montelukast [Singulair] 10 mg PO DAILY #30 tab 06/28/23 predniSONE 50 mg PO DAILY #5 tab 06/28/23 ARIPiprazole [Abilify] 5 mg PO DAILY 30 Days #30 tab 07/11/23 FLUoxetine HCL [PROzac] 40 mg PO DAILY 30 Days #30 cap 07/11/23 Fluticasone Propionate 110 Mcg 2 puff INHALATION RT-BID 30 Days 07/11/23 [Flovent 110 Mcg Inhaler] #1 each Ipratropium-Albuterol Nebulize 3 ml INHALATION QID #25 each 07/11/23 [Duoneb 0.5 mg-3 mg/3 ml Soln] metFORMIN HCL [Glucophage] 500 mg PO BID-W/MEALS 30 Days #60 07/11/23 tab predniSONE 50 mg PO DAILY #5 tab 07/11/23 Albuterol Inhaler [Ventolin Hfa 1 - 2 puff INHALATION Q6HR PRN #2 07/31/23 Inhaler] each predniSONE [Deltasone] 40 mg PO DAILY #8 tab 07/31/23 Ipratropium-Albuterol Nebulize 3 ml INHALATION Q4-6H PRN #90 ml 08/05/23 [Duoneb 0.5 mg-3 mg/3 ml Soln] predniSONE 50 mg PO DAILY 5 Days #5 tab 08/05/23 Albuterol Inhaler [Ventolin Hfa 1 - 2 puff INHALATION Q6H PRN #1 09/08/23 Inhaler] each predniSONE 50 mg PO DAILY #5 tab 09/08/23 Allergies Allergy/AdvReac Type Severity Reaction Status Date / Time No Known Allergies Allergy Verified 08/05/23 05:24 Review of Systems ROS Statement: Those systems with pertinent positive or pertinent negative responses have been documented in the HPI. ROS Other: All systems not noted in ROS Statement are negative. Past Medical History Past Medical History: Asthma, Seizure Disorder Additional Past Medical History / Comment(s): seizure, pre-COPD History of Any Multi-Drug Resistant Organisms: None Reported Past Surgical History: No Surgical Hx Reported Past Anesthesia/Blood Transfusion Reactions: No Reported Reaction Past Psychological History: Anxiety, Bipolar, Depression Smoking Status: Never smoker Past Alcohol Use History: Occasional Past Drug Use History: Marijuana General Exam Limitations: no limitations General appearance: alert, in no apparent distress Head exam: Present: atraumatic, normocephalic, normal inspection Neck exam: Present: normal inspection. Absent: tenderness, meningismus, lymph adenopathy Respiratory exam: Present: respiratory distress (Minimal), wheezes. Absent: normal lung sounds bilaterally, rales, rhonchi, stridor Cardiovascular Exam: Present: normal rhythm, tachycardia, normal heart sounds. Absent: systolic murmur, diastolic murmur, rubs, gallop, clicks GI/Abdominal exam: Present: soft, normal bowel sounds. Absent: distended, tenderness, guarding, rebound, rigid Course Vital Signs 09/08/23 09/08/23 09/08/23 21:02 22:21 22:30 Temperature 97.8 F Pulse Rate 110 H 108 H 108 H Respiratory 22 Rate Blood Pressure 132/93 O2 Sat by Pulse 94 L Oximetry Medical Decision Making - Medical Decision Making Was pt. sent in by a medical professional or institution (Dr., PA, REGIONAL ACCOUNT EXECUTIVE, urgent care, hospital, or fci...) When possible be specific @ -No Did you speak to anyone other than the patient for history (EMS, parent, family, police, friend...)? What history was obtained from this source @ -No Did you review nursing and triage notes (agree or disagree)? Why? @ -I reviewed and agree with nursing and triage notes Were old charts reviewed (outside hosp., previous admission, EMS record, old EKG, old radiological studies, urgent care reports/EKG's, fci records)? Report findings @ -No old charts were reviewed Differential Diagnosis (chest pain, altered mental status, abdominal pain women, abdominal pain men, vaginal bleeding, weakness, fever, dyspnea, syncope, headache, dizziness, GI bleed, back pain, seizure, CVA, palpatations, mental health, musculoskeletal)? @ -Dyspnea, asthma exacerbation, pneumonia, URI EKG interpreted by me (3pts min.). @ -None X-rays interpreted by me (1pt min.). @ -None done CT interpreted by me (1pt min.). @ -None done U/S interpreted by me (1pt. min.). @ -None done What testing was considered but not performed or refused? (CT, X-rays, U/S, labs)? Why? @ -None What meds were considered but not given or refused? Why? @ -None Did you discuss the management of the patient with other professionals (professionals i.e. JUAN ANTONIO Kamara, REGIONAL ACCOUNT EXECUTIVE, lab, RT, psych nurse, social media director, corporation lawyer, teacher, program officer, family independence case manager)? Give summary @ -No Was smoking cessation discussed for >3mins.? @ -No Was critical care preformed (if so, how long)? @ -No Were there social determinants of health that impacted care today? How? (Homelessness, low income, unemployed, alcoholism, drug addiction, transportation, low edu. Level, literacy, decrease access to med. care, [facility], rehab)? @ -No Was there de-escalation of care discussed even if they declined (Discuss DNR or withdrawal of care, Hospice)? DNR status @ -No What co-morbidities impacted this encounter? (DM, HTN, Smoking, COPD, CAD, Cancer, CVA, ARF, Chemo, Hep., AIDS, mental health diagnosis, sleep apnea, morbid obesity)? @Asthma Was patient admitted / discharged? Hospital course, mention meds given and route, prescriptions, significant lab abnormalities, going to OR and other pertinent info. @ -Discharge patient was given 2 DuoNeb treatments, Solu-Medrol IM injection. Patient states she feels improved will be discharged with inhaler, steroids patient states she is having her nebulizer fixed and will be discharged in stable condition. Undiagnosed new problem with uncertain prognosis? @ -No Drug Therapy requiring intensive monitoring for toxicity (Heparin, Nitro, Insulin, Cardizem)? @ -No Were any procedures done? @ -No Diagnosis/symptom? @ -Acute asthma exacerbation Acute, or Chronic, or Acute on Chronic? @ -Acute Uncomplicated (without systemic symptoms) or Complicated (systemic symptoms)? @ -Complicated Side effects of treatment? @ -No Exacerbation, Progression, or Severe Exacerbation? @ -Exacerbation Poses a threat to life or bodily function? How? (Chest pain, [place], [place], pneumonia, PE, COPD, DKA, ARF, appy, cholecystitis, CVA, Diverticulitis, Homicidal, Suicidal, threat to staff... and all critical care pts) @ -Yes low likelihood, asthma exacerbation leading to respiratory failure Disposition Clinical Impression: Acute asthma exacerbation Disposition: HOME SELF-CARE Condition: Stable Instructions (If sedation given, give patient instructions): Asthma (ED) Additional Instructions: Please return to the Emergency Department if symptoms worsen or any other concerns. Prescriptions: predniSONE 50 mg PO DAILY #5 tab Albuterol Inhaler [Ventolin Hfa Inhaler] 1 - 2 puff INHALATION Q6H PRN #1 each PRN Reason: Shortness Of Breath Is patient prescribed a controlled substance at d/c from ED?: No Referrals: Oly Fields MD [Primary Care Provider] - 1-2 days Time of Disposition: 22:17
[2023-09-08] MEDS: methylPREDNISolone SOD SUCCI 125 MG/2 ML VIAL IM ONE (22:04)
[2023-09-08] MEDS: IPRATROPIUM-ALBUTEROL 3 ML NEB INHALATION STA (22:20)
[2023-09-08 22:35] VITALS: BP 130/90; RESP 20
[2023-09-08 22:39] VITALS: PULSE 104
== END 2023-09-08 22:37 | disposition home or self-care (01) ==
LOC: EC 20:58
DX: J45.901 Unspecified asthma with (acute) exacerbation (principal)
CPT/HCPCS: 99284; 96372; 94640 ×2; J2919

== ENCOUNTER 2023-09-15 04:30 | Emergency (ER) | payer OTHER ==
[2023-09-15 04:45] VITALS: RESP 18
--- NOTE | 2023-09-15 05:35 | ED ---
ENT HPI - General Chief complaint: ENT Stated complaint: Rt Ear Pain Time Seen by Provider: 09/15/23 04:58 Source: patient, RN notes reviewed, old records reviewed Mode of arrival: ambulatory Limitations: no limitations - History of Present Illness Initial comments: Is a 28-year-old female to ER for medication refill psychiatric medications she also complains of severe right ear pain ear pain into her right jaw, patient has had some drainage from that ear does admit to recent swimming MD complaint: ear pain -: hour(s) Location: R ear Severity: severe Severity scale (1-10): 8 Consistency: constant, intermittent Worsens with: none Context- Ear: recent illness, recent swimming Associated Symptoms: discharge from ear - Related Data Home Medications Medication Instructions Recorded Confirmed Albuterol Inhaler [Ventolin Hfa 2 puff INHALATION RT-Q6H PRN 05/06/23 05/06/23 Inhaler] Ipratropium-Albuterol Nebulize 3 ml INHALATION RT-QID PRN 05/06/23 05/06/23 [Duoneb 0.5 mg-3 mg/3 ml Soln] Previous Rx's Medication Instructions Recorded Ibuprofen [Motrin] 600 mg PO Q6HR PRN tab 05/11/23 Montelukast [Singulair] 10 mg PO DAILY 30 Days #30 tab 05/11/23 Albuterol Inhaler [Ventolin Hfa 1 - 2 puff INHALATION Q4HR PRN #1 06/28/23 Inhaler] each Montelukast [Singulair] 10 mg PO DAILY #30 tab 06/28/23 predniSONE 50 mg PO DAILY #5 tab 06/28/23 Fluticasone Propionate 110 Mcg 2 puff INHALATION RT-BID 30 Days 07/11/23 [Flovent 110 Mcg Inhaler] #1 each Ipratropium-Albuterol Nebulize 3 ml INHALATION QID #25 each 07/11/23 [Duoneb 0.5 mg-3 mg/3 ml Soln] metFORMIN HCL [Glucophage] 500 mg PO BID-W/MEALS 30 Days #60 07/11/23 tab predniSONE 50 mg PO DAILY #5 tab 07/11/23 Albuterol Inhaler [Ventolin Hfa 1 - 2 puff INHALATION Q6HR PRN #2 07/31/23 Inhaler] each predniSONE [Deltasone] 40 mg PO DAILY #8 tab 07/31/23 Ipratropium-Albuterol Nebulize 3 ml INHALATION Q4-6H PRN #90 ml 08/05/23 [Duoneb 0.5 mg-3 mg/3 ml Soln] predniSONE 50 mg PO DAILY 5 Days #5 tab 08/05/23 Albuterol Inhaler [Ventolin Hfa 1 - 2 puff INHALATION Q6H PRN #1 09/08/23 Inhaler] each predniSONE 50 mg PO DAILY #5 tab 09/08/23 ARIPiprazole [Abilify] 5 mg PO DAILY 30 Days #30 tab 09/15/23 Ciprofloxacin HCl [Cipro] 500 mg PO Q12HR #20 tablet 09/15/23 FLUoxetine HCL [PROzac] 40 mg PO DAILY 30 Days #30 cap 09/15/23 Allergies Allergy/AdvReac Type Severity Reaction Status Date / Time No Known Allergies Allergy Verified 08/05/23 05:24 Review of Systems ROS Statement: Those systems with pertinent positive or pertinent negative responses have been documented in the HPI. ROS Other: All systems not noted in ROS Statement are negative. Past Medical History Past Medical History: Asthma, Seizure Disorder Additional Past Medical History / Comment(s): seizure, pre-COPD History of Any Multi-Drug Resistant Organisms: None Reported Past Surgical History: No Surgical Hx Reported Past Anesthesia/Blood Transfusion Reactions: No Reported Reaction Past Psychological History: Anxiety, Bipolar, Depression Smoking Status: Never smoker Past Alcohol Use History: Occasional Past Drug Use History: Marijuana General Exam General appearance: alert, in no apparent distress Head exam: Present: atraumatic, normocephalic, normal inspection Eye exam: Present: normal appearance, PERRL, EOMI. Absent: scleral icterus, conjunctival injection, periorbital swelling ENT exam: Present: normal exam, mucous membranes moist. Absent: TM's normal bilaterally (Right TM is obscured with significant swelling of the membrane) Neck exam: Present: normal inspection. Absent: tenderness, meningismus, lymphadenopathy Respiratory exam: Present: normal lung sounds bilaterally. Absent: respiratory distress, wheezes, rales, rhonchi, stridor Cardiovascular Exam: Present: regular rate, normal rhythm, normal heart sounds. Absent: systolic murmur, diastolic murmur, rubs, gallop, clicks GI/Abdominal exam: Present: soft, normal bowel sounds. Absent: distended, tenderness, guarding, rebound, rigid Extremities exam: Present: normal inspection, full ROM, normal capillary refill. Absent: tenderness, pedal edema, joint swelling, calf tenderness Back exam: Present: normal inspection Neurological exam: Present: alert, oriented X3, CN II-XII intact Psychiatric exam: Present: normal affect, normal mood Skin exam: Present: warm, dry, intact, normal color. Absent: rash Course Vital Signs 09/15/23 09/15/23 04:36 05:58 Temperature 98.5 F 98.3 F Pulse Rate 66 61 Respiratory 18 18 Rate Blood Pressure 145/101 143/103 O2 Sat by Pulse 96 96 Oximetry - Reevaluation(s) Reevaluation #1: Medical records reviewed Reevaluation #2: Patient symptoms improved Reevaluation #3: Informed of results and questions answered Reevaluation #4: Was pt. sent in by a medical professional or institution (, PA, DRY CANS OPERATOR, urgent care, hospital, or usp...) When possible be specific @ -no Did you speak to anyone other than the patient for history (EMS, parent, family, police, friend...)? What history was obtained from this source @ -no Did you review nursing and triage notes (agree or disagree)? Why? @ -agree Are old charts reviewed (outside hosp., previous admission, EMS record, old EKG, old radiological studies, urgent care reports/EKG's, usp records)? Report findings @ -yes Differential Diagnosis (chest pain, altered mental status, abdominal pain women, abdominal pain men, vaginal bleeding, weakness, fever, dyspnea, syncope, headache, dizziness, GI bleed, back pain, seizure, CVA, palpatations, mental health, musculoskeletal)? @ -prior EKG interpreted by me (3pts min.). @ -no X-rays interpreted by me (1pt min.). @ -no CT interpreted by me (1pt min.). @ -no U/S interpreted by me (1pt. min.). @ -no What testing was considered but not performed or refused? (CT, X-rays, U/S, labs)? Why? @ -none What meds were considered but not given or refused? Why? @ -none Did you discuss the management of the patient with other professionals (professionals i.e. , PA, DRY CANS OPERATOR, lab, RT, psych nurse, psychotherapist social worker, mate fishing vessel, teacher, foreign policy officer, returned case inspector)? Give summary @ -no Was smoking cessation discussed for >3mins.? @ -no Was critical care preformed (if so, how long)? @ -no Were there social determinants of health that impacted care today? How? (Homelessness, low income, unemployed, alcoholism, drug addiction, transportation, low edu. Level, literacy, decrease access to med. care, fpc, rehab)? @ -none Was there de-escalation of care discussed even if they declined (Discuss DNR or withdrawal of care, Hospice)? DNR status @ -no What co-morbidities impacted this encounter? (DM, HTN, Smoking, COPD, CAD, Cancer, CVA, ARF, Chemo, Hep., AIDS, mental health diagnosis, sleep apnea, morbid obesity)? @ -none Was patient admitted / discharged? Hospital course, mention meds given and route, prescriptions, significant lab abnormalities, going to OR and other pertinent info. @ - 28 female to ER for medication refill and right ear pain. Patient has right otitis externa will treat with appropriate antibiotics and patient can be discharged home Discharge Undiagnosed new problem with uncertain prognosis? @ -no Drug Therapy requiring intensive monitoring for toxicity (Heparin, Nitro, Insulin, Cardizem)? @ -no Were any procedures done? @ -no Diagnosis/symptom? @ -Right otitis externa Acute, or Chronic, or Acute on Chronic? @ -Acute Uncomplicated (without systemic symptoms) or Complicated (systemic symptoms)? @ -Complicated Side effects of treatment? @ -no Exacerbation, Progression, or Severe Exacerbation? @ -exacerbation Poses a threat to life or bodily function? How? (Chest pain, [place], [place], pneumonia, PE, COPD, DKA, ARF, appy, cholecystitis, CVA, Diverticulitis, Homicidal, Suicidal, threat to staff... and all critical care pts) @ -no Medical Decision Making - Medical Decision Making 28 female to ER for medication refill and right ear pain. Patient has right otitis externa will treat with appropriate antibiotics and patient can be discharged home Disposition Clinical Impression: Right otitis externa, Otitis media, Otitis externa, Medication refill Disposition: HOME SELF-CARE Condition: Fair Instructions (If sedation given, give patient instructions): Swimmer's Ear (ED), Barotitis Media (ED) Prescriptions: ARIPiprazole [Abilify] 5 mg PO DAILY 30 Days #30 tab Ciprofloxacin HCl [Cipro] 500 mg PO Q12HR #20 tablet FLUoxetine HCL [PROzac] 40 mg PO DAILY 30 Days #30 cap Is patient prescribed a controlled substance at d/c from ED?: No Referrals: Oly Fields MD [Primary Care Provider] - 1-2 days
[2023-09-15] MEDS: CIPROFLOXACIN HCL 500 MG TAB PO STA (05:41)
[2023-09-15] MEDS: ACETAMINOPHEN TAB 500 MG TAB PO STA (05:42)
[2023-09-15] MEDS: IBUPROFEN 800 MG TAB PO STA (05:42)
[2023-09-15] MEDS: CIPROFLOXACIN-DEXAMETH 0.3-0.1% DROPS 7.5 ML BTL RIGHT EAR STA (05:54)
[2023-09-15 05:59] VITALS: BP 143/103; PULSE 61; TEMP 98.3
== END 2023-09-15 05:59 | disposition home or self-care (01) ==
LOC: EC 04:30
DX: H60.91 Unspecified otitis externa, right ear (principal); H66.91 Otitis media, unspecified, right ear; Z76.0 Encounter for issue of repeat prescription
CPT/HCPCS: 99282